=== PATIENT | female | born 1950 | race Caucasian/White ===

== ENCOUNTER → 2019-05-19 14:32 | Outpatient (BNVA) | payer MEDICARE, MEDICAID, SELFPAY | PROVIDERS: Family Provider Internal Medicine; PCP Internal Medicine; Visit Provider Podiatrist Foot & Ankle Surgery | DX: S92.911A Unspecified fracture of right toe(s), initial encounter for closed fracture (principal); X58.XXXA Exposure to other specified factors, initial encounter | CPT/HCPCS: 73630 ==

== ENCOUNTER → 2019-06-30 13:48 | Outpatient (BNVA) | payer MEDICARE, MEDICAID, SELFPAY | PROVIDERS: Family Provider Internal Medicine; PCP Internal Medicine; Visit Provider Podiatrist Foot & Ankle Surgery | DX: M25.571 Pain in right ankle and joints of right foot (principal) | CPT/HCPCS: 73610 ==

== ENCOUNTER 2019-06-30 16:13 | Outpatient (CLI) | payer MEDICARE, MEDICAID, SELFPAY | END 2019-06-30 16:14 | disposition home or self-care (01) | LOC: SPT 16:14 | PROVIDERS: Family Provider Internal Medicine; PCP Internal Medicine; Visit Provider Podiatrist Foot & Ankle Surgery | DX: M25.571 Pain in right ankle and joints of right foot (principal) | CPT/HCPCS: 73610; L1902 ==

== ENCOUNTER 2020-06-18 14:56 | Emergency (ER) | payer MEDICARE, MEDICAID, SELFPAY ==
[2020-06-18 15:08] VITALS: BP 122/73; PULSE 82; RESP 18; TEMP 36.4; O2SAT 94; BMI 29.9
--- NOTE | 2020-06-18 15:47 | XRR_ITS ---
PROCEDURE INFORMATION: Exam: XR Left Knee Exam date and time: 06/18/2020 4:14 PM Age: 70 years old Clinical indication: Injury or trauma; Fall; Blunt trauma; Knee; Left TECHNIQUE: Imaging protocol: XR Left knee. Views: 3 views. COMPARISON: No relevant prior studies available. FINDINGS: Bones/joints: Unremarkable. No fractures. Normal joint alignment. Fairly minimal medial compartment joint space loss. No significant osteophytes. No aggressive bone lesion. Soft tissues: Normal. XR/XR knee LT 3V* [id number] IMPRESSION: No acute findings.
--- NOTE | 2020-06-18 15:47 | XRR_ITS ---
PROCEDURE INFORMATION: Exam: XR Left Hip with Pelvis when Performed Exam date and time: 06/18/2020 4:14 PM Age: 70 years old Clinical indication: Injury or trauma; Fall; Blunt trauma (contusions or hematomas); Left; Hip TECHNIQUE: Imaging protocol: XR Left hip with pelvis when performed. Views: 2 or 3 views. COMPARISON: No relevant prior studies available. FINDINGS: Bones/joints: No fractures. Unremarkable joint alignment. Moderate joint space loss. Mild osteophytic spurring at the lateral margin of the acetabulum. No focal aggressive bone lesion. Soft tissues: Unremarkable. XR/XR hip LT 2-3V wo/w pel* [id number] IMPRESSION: Negative for acute left hip fracture.
[2020-06-18 15:54] VITALS: BP 108/58; PULSE 88; RESP 18; O2SAT 97
--- NOTE | 2020-06-18 15:58 | W.ED.FALL ---
HPI - Fall General: Chief Complaint: Fall Stated Complaint: FALL/ KNEE PAIN Time Seen by Provider: 06/18/20 15:39 Source: patient History of Present Illness: HPI Narrative: Patient slipped on the ice about 4 hours ago. Injured left knee. Initially was able to bear weight on it but now is no longer able to bear weight because of pain. Has pain that radiates up into the left hip. Onset (ago): hour(s) (4) Associated symptoms-after fall: Denies abdominal pain, chest pain, headache(s) or neck pain Review of Systems General: Reports: 10 or more systems reviewed and unremarkable except in HPI and below Const: Denies: fever(s) Eyes: Denies: change in vision ENMT: Denies: throat pain Card: Denies: chest pain Resp: Denies: dyspnea GI: Denies: abdominal pain, nausea or vomiting : Denies: flank pain Musc: Reports: joint pain (Left knee and left hip pain); Denies: neck pain or back pain Neuro: Denies: headache(s) PFSH ED PFSH: Medical History (Updated 06/18/20 @ 16:39 by Fabian Rodgers MD) Asthma Carotid stenosis Chronic kidney disease (CKD) DVT (deep venous thrombosis) Essential (primary) hypertension GERD (gastroesophageal reflux disease) History of placement of stent in LAD coronary artery Plantar fasciitis Family History Other Dementia Hypertension Denies family history of Diabetes CAD (coronary artery disease) Clotting disorder Hyperlipidemia Psychiatric illness Chronic kidney disease (CKD) Suicide Anesthesia complication Bleeding disorder Family history of premature coronary artery disease Lung disease Cancer Stroke Social History Smoking and tobacco status: never smoked Alcohol intake: current Alcohol intake frequency: holidays/special occasions only Marital status: Single Current occupational status: retired Physical Exam Const: COMMON NORMALS: no acute distress, average body habitus, patient oriented x3, no limitations, healthy appearing, alert and well nourished HENMT: COMMON NORMALS: normocephalic, atraumatic, hearing grossly normal bilaterally, external ears normal, EAC's normal, TM's normal bilaterally, Normal external nose present, Normal nasal mucous membranes and turbinates present, moist oral mucous membranes, oropharynx normal, dentition normal and gingiva normal HEAD & SCALP: normocephalic and atraumatic NOSE: Normal external nose present and Normal nasal mucous membranes and turbinates present EXTERNAL EAR: Yes external ears normal EXTERNAL AUDITORY CANAL: EAC's normal TYMPANIC MEMBRANE: TM's normal bilaterally Eye: COMMON NORMALS: Equal, round and reactive pupils present, EOMs intact bilaterally, conjunctivae normal, no scleral icterus, no papilledema, normal visual jain by confrontation and fundi normal bilaterally CONJUNCTIVA: Yes conjunctivae normal PUPIL: Yes Equal, round and reactive pupils present DIRECT OPHTHALMOSCOPY: Yes no papilledema and Yes fundi normal bilaterally Neck/C-Spine: COMMON NORMALS: full ROM, no lymphadenopathy, supple, no meningeal signs, Thyroid normal and No carotid bruits THYROID: Thyroid normal Resp: COMMON NORMALS: normal respiratory effort, No retractions, No use of accessory muscles, clear to auscultation bilaterally and percussion normal AUSCULTATION: clear to auscultation bilaterally PERCUSSION: percussion normal Extremity: NARRATIVE EXTREMITY EXAM: Patient with tenderness to the left hip and left knee. Neurovascular intact distally with +2 dorsalis pedis pulses and normal sensation. LEFT LOWER EXTREMITY: Yes hip joint (Tenderness to the left hip. No ecchymosis. No deformity.) and Yes knee joint (Tenderness to the left knee. No ecchymosis. Mild soft tissue swelling.) Neuro: COMMON NORMALS: patient oriented x3 SENSORIUM/ORIENTATION: Yes alert MENINGEAL SIGNS: Yes no meningeal signs Course Vital Signs: Vital signs: Vital Signs Temperature 97.6 F 06/18/20 15:08 Pulse Rate 88 06/18/20 15:54 Respiratory Rate 18 06/18/20 15:54 Blood Pressure 108/58 06/18/20 15:54 Pulse Oximetry 97 06/18/20 15:54 MDM - Fall MDM Narrative: Medical decision making narrative: Patient has normal x-rays of the left knee and left hip. Will have PT evaluate for DME. Will need immobilizer and crutches. Pain medicine. May need MRI later if symptoms do not improve. Discharge Plan Discharge Patient Disposition: Home Clinical Impression: Knee sprain Qualifiers: Encounter type: initial encounter Involved ligament of knee: unspecified ligament Laterality: left Qualified Code(s): S83.92XA - Sprain of unspecified site of left knee, initial encounter Condition: Stable Prescriptions: New hydrocodone-acetaminophen 5-325 mg tablet 1 tab PO Q6H Qty: 20 RF: 0 No Action aspirin [Adult Aspirin Regimen] 81 mg tablet,delayed release (DR/EC) 81 mg PO DAILY@0800 RF: 0 nitroglycerin [Nitrostat] 0.4 mg tablet, sublingual 0.4 mg SUBLINGUAL Q5M PRN (Reason: CHEST PAINS) RF: 0 pantoprazole 40 mg tablet,delayed release (DR/EC) 40 mg PO BID@0800,1999 RF: 0 lisinopril 10 mg tablet 10 mg PO DAILY@1999 RF: 0 budesonide-formoterol [Symbicort] 160-4.5 mcg/actuation HFA aerosol inhaler 2 puff INHALATION BID@08,1999 RF: 0 fluticasone propionate [Flonase Allergy Relief] 50 mcg/actuation spray,suspension 1 spray INTRANASAL DAILY@0800 RF: 0 simvastatin 80 mg tablet 40 mg PO DAILY@0800 RF: 0 (DME) supinator Qty: 1 RF: 0 albuterol sulfate 90 mcg/actuation HFA aerosol inhaler 1 puff INHALATION QID PRN (Reason: SHORTNESS OF BREATH/WHEEZING) RF: 0 Discharge Orders: Discharge ED (Routine); Ordered 06/18/20 Ordered By: aFbian Rodgers Referrals: William Marie DO [Primary Care Provider] - Discharge Diet: Advance as tolerated Discharge Activity: Use walker/crutches as instructed and As per PT/OT instructions Patient Instructions: Opioid Safety Coding Level of Care Code ED Agricultural Equipment Design Engineer for Chg Fwd Exam Detailed
[2020-06-18] MEDS: HYDROcodone-acetaminophen 7.5-325 mg Tablet 1 TAB PO (16:39)
--- NOTE | 2020-06-18 16:40 | W.ED.FALL ---
HPI - Fall General: Chief Complaint: Fall Stated Complaint: FALL/ KNEE PAIN Time Seen by Provider: 06/18/20 15:39 Source: patient History of Present Illness: HPI Narrative: patient fell injuring left knee MD complaint: fall Onset (ago): unknown Fall from: standing Associated symptoms-after fall: Denies abdominal pain, chest pain or headache(s) Review of Systems Const: Denies: fever(s) Eyes: Denies: change in vision ENMT: Denies: throat pain Card: Denies: chest pain Resp: Denies: dyspnea GI: Denies: abdominal pain : Denies: flank pain Musc: Reports: extremity pain and joint pain (left knee pain) Skin/Breast: Denies: skin swelling Neuro: Denies: headache(s) PFSH ED PFSH: Medical History Asthma Carotid stenosis Chronic kidney disease (CKD) DVT (deep venous thrombosis) Essential (primary) hypertension GERD (gastroesophageal reflux disease) History of placement of stent in LAD coronary artery Plantar fasciitis Family History Other Dementia Hypertension Denies family history of Diabetes CAD (coronary artery disease) Clotting disorder Hyperlipidemia Psychiatric illness Chronic kidney disease (CKD) Suicide Anesthesia complication Bleeding disorder Family history of premature coronary artery disease Lung disease Cancer Stroke Social History Smoking and tobacco status: never smoked Alcohol intake: current Alcohol intake frequency: holidays/special occasions only Marital status: Single Current occupational status: retired Physical Exam Const: COMMON NORMALS: no acute distress, average body habitus, patient oriented x3, no limitations, healthy appearing, alert and well nourished HENMT: COMMON NORMALS: normocephalic, atraumatic, hearing grossly normal bilaterally, external ears normal, EAC's normal, TM's normal bilaterally, Normal external nose present, Normal nasal mucous membranes and turbinates present, moist oral mucous membranes, oropharynx normal, dentition normal and gingiva normal HEAD & SCALP: normocephalic and atraumatic NOSE: Normal external nose present and Normal nasal mucous membranes and turbinates present EXTERNAL EAR: Yes external ears normal EXTERNAL AUDITORY CANAL: EAC's normal TYMPANIC MEMBRANE: TM's normal bilaterally Neck/C-Spine: COMMON NORMALS: no JVD Chest: COMMONS NORMALS: normal inspection of the chest, normal palpation of entire chest wall and normal palpation of the breasts BREAST/AXILLA PALPATION: Yes normal palpation of the breasts Resp: COMMON NORMALS: normal respiratory effort, No retractions, No use of accessory muscles, clear to auscultation bilaterally and percussion normal AUSCULTATION: clear to auscultation bilaterally PERCUSSION: percussion normal Cardio: COMMON NORMALS: no JVD, regular rate, regular rhythm, S1 normal heart sound present, S2 normal heart sound present, No gallops present (Cardio), No clicks present (Cardio), No murmurs present (Cardio), No rub (Cardio) and Peripheral pulses 2+ throughout RATE: regular rate RHYTHM: regular rhythm HEART SOUNDS: S1 normal heart sound present and S2 normal heart sound present PERIPHERAL PULSES: Peripheral pulses 2+ throughout Extremity: GENERAL: Yes normal exam except as noted LEFT LOWER EXTREMITY: Yes knee joint (tenderness along left lateral joint line., NVI distal) Neuro: COMMON NORMALS: patient oriented x3 SENSORIUM/ORIENTATION: Yes alert Course Vital Signs: Vital signs: Vital Signs Temperature 97.6 F 06/18/20 15:08 Pulse Rate 81 06/18/20 18:04 Respiratory Rate 18 06/18/20 18:04 Blood Pressure 100/78 06/18/20 18:04 Pulse Oximetry 96 06/18/20 18:04 MDM - Fall MDM Narrative: Medical decision making narrative: xray negative for acute fracture, recommend RICE therapy and furtherimagaing by PCP if symptoms dont improve. Discharge Plan Discharge Patient Disposition: Home Clinical Impression: Knee sprain Condition: Stable Prescriptions: New hydrocodone-acetaminophen 5-325 mg tablet 1 tab PO Q6H Qty: 20 RF: 0 No Action aspirin [Adult Aspirin Regimen] 81 mg tablet,delayed release (DR/EC) 81 mg PO DAILY@799 RF: 0 pantoprazole 40 mg tablet,delayed release (DR/EC) 40 mg PO BID@ RF: 0 lisinopril 10 mg tablet 10 mg PO DAILY@1999 RF: 0 budesonide-formoterol [Symbicort] 160-4.5 mcg/actuation HFA aerosol inhaler 2 puff INHALATION BID@ RF: 0 fluticasone propionate [Flonase Allergy Relief] 50 mcg/actuation spray,suspension 1 spray INTRANASAL DAILY@0800 RF: 0 simvastatin 80 mg tablet 40 mg PO DAILY@0800 RF: 0 (DME) supinator Qty: 1 RF: 0 (DME) Crutches See Rx Instructions .Route .MEDSUPPLY Qty: 1 RF: 0 nitroglycerin [Nitrostat] 0.4 mg tablet, sublingual 0.4 mg SUBLINGUAL Q5M PRN (Reason: CHEST PAINS) Qty: 25 RF: 3 albuterol sulfate 90 mcg/actuation HFA aerosol inhaler 1 puff INHALATION QID PRN (Reason: SHORTNESS OF BREATH/WHEEZING) RF: 0 Discharge Orders: Discharge ED (Routine); Ordered 06/18/20 Ordered By: Fabian Rodgers Referrals: William Marie DO [Primary Care Provider] - Discharge Diet: Advance as tolerated Discharge Activity: Use walker/crutches as instructed and As per PT/OT instructions Patient Instructions: Opioid Safety Coding Level of Care Code ED Freelance Graphic Designer for Concetta Ashton
[2020-06-18 16:54] VITALS: BP 100/78; PULSE 81; RESP 18; O2SAT 96
[2020-06-18] MEDS: cyclobenzaprine 10 mg Tablet PO (17:22)
[2020-06-18 18:04] VITALS: BP 100/78; PULSE 81; RESP 18; O2SAT 96
== END 2020-06-18 18:05 | disposition home or self-care (01) ==
PROVIDERS: Emergency Provider Emergency Medicine; PCP Internal Medicine
DX: S83.92XA Sprain of unspecified site of left knee, initial encounter (principal); Z79.82 Long term (current) use of aspirin; I10 Essential (primary) hypertension; W00.0XXA Fall on same level due to ice and snow, initial encounter
CPT/HCPCS: 29530; 73502; 73562; 97161; 99283

== ENCOUNTER 2020-07-09 07:48 | Outpatient (CLI) | payer MEDICARE, MEDICAID, SELFPAY ==
--- NOTE | 2020-07-09 07:56 | MR_ITS ---
WS: [id number] MRI LEFT KNEE NONCONTRAST TECHNIQUE: Axial PD, coronal PD fat sat, coronal PD, sagittal PD, and sagittal PD fat-sat images obta ined. CLINICAL INFORMATION: LEFT KNEE INTERNAL DERANGEMENT COMPARISON: None. FINDINGS: Distal quadriceps and patella tendons are intact. Hypertrophic patella. Normal ACL and PCL. Small sup rapatellar effusion. Chronic intrasubstance signal abnormality involving the medial and lateral menis cus. No acute appearing meniscal tears. Osteochondral fracture involving the posterior lateral tibial plateau with diffuse edema. Visualized fracture line involving the tibial plateau laterally with sli ght depression measuring 1.4 mm. Moderate chondromalacia involving the medial and lateral joint gabrielle rtments. Mild chondromalacia patella. No subchondral edema. Tiny popliteal cyst. Popliteal cyst measures 6 x 1 5 x 19mm. Otherwise normal popliteal fossa. Normal medial and lateral collateral ligaments. MR/MR knee LT wo con* [id number] IMPRESSION: 1. Normal anterior and posterior cruciate ligaments. 2. Osteochondral fracture involving the posterior lateral tibial plateau with diffuse edema. Mild depression lateral tibial plateau measuring 1.5 mm. 3. Moderate chondromalacia involving the medial and lateral joint compartments . No acute appearing meniscal tears. 4. Small popliteal cyst measuring 6.5 x 15.9 x 19.9 mm. 5. Mild chondromalacia patella. Small suprapatellar effusion.
== END 2020-07-09 07:49 | disposition home or self-care (01) ==
LOC: RADWPI 07:50
PROVIDERS: PCP Internal Medicine; Visit Provider Internal Medicine
DX: M23.92 Unspecified internal derangement of left knee (principal); M22.42 Chondromalacia patellae, left knee; M25.462 Effusion, left knee; M71.22 Synovial cyst of popliteal space [Baker], left knee; S82.142A Displaced bicondylar fracture of left tibia, initial encounter for closed fracture; X58.XXXA Exposure to other specified factors, initial encounter; R60.0 Localized edema
CPT/HCPCS: 73721

== ENCOUNTER → 2020-08-31 08:21 | Outpatient (BNVA) | payer MEDICARE, MEDICAID, SELFPAY | PROVIDERS: PCP Internal Medicine; Visit Provider Orthopaedic Surgery | DX: S82.142A Displaced bicondylar fracture of left tibia, initial encounter for closed fracture (principal); X58.XXXA Exposure to other specified factors, initial encounter | CPT/HCPCS: 73562 ==

== ENCOUNTER 2021-02-18 12:24 | Outpatient (CLI) | payer MEDICARE, MEDICAID, SELFPAY ==
--- NOTE | 2021-02-18 12:41 | MM_ITS ---
WS: [id number] SCREENING DIGITAL MAMMOGRAM WITH CAD HISTORY: SCREENING COMPARISON: 07/19/2018 and 12/08/2015 Bilateral CC and MLO views submitted. Computer aided detection analyzed. Breast composition: There are scattered areas of fibroglandular density. No suspicious masses, microc alcifications or architectural distortion. MM/[place] [id number] IMPRESSION: BI-RADS: 2-Benign FOLLOW UP: 1 Year Follow-up
== END 2021-02-18 12:25 | disposition home or self-care (01) ==
LOC: RADSHAW 12:27
PROVIDERS: PCP Internal Medicine; Visit Provider Internal Medicine
DX: Z12.31 Encounter for screening mammogram for malignant neoplasm of breast (principal)
CPT/HCPCS: 77067

== ENCOUNTER 2021-03-02 07:04 | Outpatient (CLI) | payer MEDICARE, MEDICAID, SELFPAY ==
[2021-03-02 08:28] VITALS: BMI 29.9
--- NOTE | 2021-03-02 08:28 | NMCV_ITS ---
NM arun perf SPECT r/s* [id number] Denise Sanches Age: 70 Gender: F : 1950 Exam Date: 03/02/2021 08:24 Ordering Phys: Rasta Akins M.D ([email or web address]) Technologist: AKHIL Niño Exam Location: [facility] Indications: CHEST PAIN STRESS TEST Please see separate stress test report in [facility] for full findings IMAGE PROTOCOL Rest/Stress 1 Lexiscan Day Radiopharmaceutical Dose (mCi) Administration Site Administered by Rest: Tc-99m 10.9 IV AKHIL Macedo Sestamibi Stress:Tc-99m 32.6 IV AKHIL Macedo Sestamibi Rest: 02-Mar-2021 60 Discovery 630 Stress: 02-Mar-2021 30 Discovery 630 0.4mg Lexiscan. Images obtained in supine and prone position. SPECT RESULTS Technical Quality: Excellent Raw Data Analysis: Normal Image Corrections: No attenuation or motion correction applied Summed Stress Score: 1 Summed Rest Score: 4 Summed Difference Score: 0 PERFUSION FINDINGS There is homogenous radiotracer uptake throughout the myocardium FUNCTIONAL RESULTS (calculated via Gated SPECT) Stress Image LV EF (%): 87 Stress EDV (mL):68 TID: 0.93 Stress ESV (mL):9 FUNCTIONAL FINDINGS: There is normal left ventricular systolic function. IMPRESSIONS 1. Normal myocardial perfusion imaging with no evidence of ischemia 2. LV systolic function is normal Rasta Akins MD (Electronically Signed) Final Date: 02 March 2021 11:13 S
--- NOTE | 2021-03-02 08:28 | ECG_ITS ---
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 Interpretive Statements NAME OF STUDY: LEXISCAN SESTAMIBI STRESS TEST INDICATION: [Chest Pain, ] Procedure: At the baseline, the blood pressure was 147/74 mmHg with a heart rate of 68 bpm. The electrocardiogram showed normal sinus rhythm, normal axis with normal ST and T's. The Lexiscan was infused over a period of 20 seconds. A total of 0.4 mg of Lexiscan was infused. The stress phase was continued for a total of 5 minutes. Heart rate was at the end of stress phase was 74 bpm and a blood pressure of 161/72 mmHg. The EKG at the peak infusion revealed since normal sinus rhythm with no significant ST-T wave changes. Sestamibi was injected 20 seconds after the Lexiscan infusion. Blood pressure at the end of recovery phase was 157/73 mmHg with a heart rate of 71 bpm. Conclusion: 1. Normal EKG response to Lexiscan infusion 2. No Lexiscan induced chest pain or cardiac arrhythmia. 3. Normal blood pressure and heart rate response. 4. Sestamibi/sestamibi perfusion scan pending; see separate report. Electronically Signed On 03-14-2021 10:54:35 INSTRUCTION LIBRARIAN by Rasta Akins M.D. [email or web address]/store/[id number]
[2021-03-02] MEDS: regadenoson 0.4 Mg/5 ml Syringe IVP (09:15)
[2021-03-02 09:16] VITALS: BP 157/73; PULSE 68
== END 2021-03-02 07:05 | disposition home or self-care (01) ==
LOC: CDL 07:06
PROVIDERS: PCP Internal Medicine; Visit Provider Internal Medicine
DX: R07.9 Chest pain, unspecified (principal)
CPT/HCPCS: 78452; 93017; A9500; J2785

== ENCOUNTER → 2021-12-13 14:46 | Outpatient (BNVA) | payer MEDICARE, MEDICAID, SELFPAY | PROVIDERS: PCP Internal Medicine; Visit Provider Internal Medicine | DX: I12.9 Hypertensive chronic kidney disease with stage 1 through stage 4 chronic kidney disease, or unspecified chronic kidney disease (principal); N18.9 Chronic kidney disease, unspecified; Z98.890 Other specified postprocedural states; Z87.19 Personal history of other diseases of the digestive system; I65.29 Occlusion and stenosis of unspecified carotid artery; I25.10 Atherosclerotic heart disease of native coronary artery without angina pectoris | CPT/HCPCS: 99214 ==

== ENCOUNTER 2022-02-21 09:27 | Outpatient (CLI) | payer MEDICARE, MEDICAID, SELFPAY ==
--- NOTE | 2022-02-21 10:00 | USCV_ITS ---
Denise Sanches Age: 71 Gender: F : 1950 Exam Date: 02/21/2022 10:11 Ordering Phys: Rasta Akins M.D ([email or web address]) Technologist: CT Exam Location: [facility] Indication: stenosis Risk Factors: Previous Vascular Surgery: Right Brachial BP: / Left Brachial BP: / Right Left Velocity (cm/s) Spectral Plaque Velocity (cm/s) Spectral Plaque Syst/Diast Broadening Syst/Diast Broadening 69.40/ 19.70 Prox CCA 68.20 / 17.30 75.00/ 18.80 Mid CCA 84.60 / 26.40 57.20/ 18.80 Distal CCA 92.50 / 18.50 105.80/30.90 Prox ICA 95.90 / 22.20 72.80/ 21.40 Mid ICA 97.10 / 24.90 100.00/31.00 Distal ICA 111.30/ 32.00 56.20 ECA 12.50 1.43 ICA/CCA 1.20 Antegrade Vertebral Antegrade 60.53/ 8.20 cm/s 104.1/ 20.20 cm/s 0 Tri Subclavian Tri 105.6 78.30 0 CONCLUSIONS Right ICA stenosis <50%. Mild atheromatous plaque right carotid bulb/ICA. Left ICA stenosis <50%. Moderate calcified atheromatous plaque left carotid bulb/ICA. Normal antegrade Doppler flow noted in the right vertebral artery. Normal antegrade Doppler flow noted in the left vertebral artery. Raj Dyson MD (Electronically Signed) Final Date: 21 February 2022 11:49 S
== END 2022-02-21 09:28 | disposition home or self-care (01) ==
LOC: RAD 09:31
PROVIDERS: PCP Internal Medicine; Visit Provider Internal Medicine
DX: I65.23 Occlusion and stenosis of bilateral carotid arteries (principal)
CPT/HCPCS: 93880

== ENCOUNTER 2022-05-23 12:51 | Emergency (ER) | payer MEDICARE, MEDICAID, SELFPAY ==
[2022-05-23] VITALS (7 sets, daily range): BP systolic 103–138; BP diastolic 62–71; PULSE 72–91; RESP 18–25; TEMP 36.8; O2SAT 92–95; BMI 26.6
--- NOTE | 2022-05-23 13:15 | ECG_ITS ---
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 Measurements Intervals [place] Rate: 91 P: 63 CT: 155 QRS: -54 QRSD: 81 T: 68 QT: 345 QTc: 425 Interpretive Statements SINUS RHYTHM PATTERN CONSISTENT WITH PULMONARY DISEASE LEFT ANTERIOR FASCICULAR BLOCK [QRS AXIS <= -45, QR IN I, RS IN II] Compared to ECG 03/09/2019 15:43:12 Sinus bradycardia no longer present Electronically Signed On 05-23-2022 14:43:46 LEATHER SORTER by Rasta Akins M.D. [email or web address]/store/[id number]
--- NOTE | 2022-05-23 13:22 | XR_ITS ---
WS: [id number] Portable AP upright chest, 05/23/2022 Clinical Data: cough, sob Comparison: Portable chest, 03/09/2019. Findings: No nodules, masses or effusions are seen. There is a minimal patchy left lower lobe opacity which could represent atelectasis and/or pneumonia. The heart is normal. The pulmonary vascularity i s not increased. No pneumothorax is seen. The aortic arch and descending thoracic aorta show tortuosi ty. XR/XR chest 1V portable [id number] Impression: 1. Minimal patchy left lower lobe opacity which could represent atelectasis and /or pneumonia. 2. Atherosclerosis.
--- NOTE | 2022-05-23 13:22 | ED_ITS ---
HPI - URI/Sore Throat General: Chief Complaint: Shortness of Breath/Dyspnea Stated Complaint: flu like symptoms Time Seen by Provider: 05/23/22 13:10 Source: patient Mode of arrival: wheelchair Limitations: no limitations History of Present Illness: Patient is a 72-year-old female here for concerns of shortness of breath and difficulty breathing as well as weakness. Patient tells me that she has been sick since New Year's (approximately 2 weeks). She states this started as a upper respiratory-like illness but states her cough and shortness of breath has seemed to worsen. She is complaining of a dry irritative cough. Patient checked into the ED along with her sister whom she resides with. Sister is fairly ill with upper respiratory/respiratory illness. States she initially had fevers for the first 3 days of her illness but has been afebrile since. She has had mild diarrhea. MD elicited complaint: fever, cough and other (weakness, dyspnea) Pertinent past history: asthma Onset (ago): day(s) Consistency: constant Severity: moderate Description of mucous: clear Able to tolerate fluids by mouth: Yes Relieving factors: nothing Context: sick contacts (sister) Associated symptoms: Reports chest pain (from coughing), diarrhea and fever(s) (first three days of illness; none since); Deny abdominal pain, headache(s), nasal congestion, nausea or vomiting Treatments prior to arrival: none Review of Systems Const: Reports: fever(s) (first three days of illness; none since), fatigue and malaise ENMT: Denies: throat pain, odynophagia, nasal discharge or nasal congestion Card: Reports: chest pain (from coughing); Denies: palpitations, irregular heart rhythm, edema, swelling of feet/ankles, lightheadedness, syncope, pre-syncope, dyspnea on exertion or orthopnea Resp: Reports: dyspnea, non-productive cough and chest congestion; Denies: wheezing, stridor or hemoptysis GI: Reports: diarrhea; Denies: abdominal pain, nausea or vomiting : Denies: flank pain or dysuria Musc: Denies: neck pain, back pain, extremity pain or joint pain Skin/Breast: Denies: rash Neuro: Reports: other (generalized weakness); Denies: headache(s), numbness in extremities, weakness in extremities or sensory changes PFSH ED PFSH: Medical History Asthma Carotid stenosis Chronic kidney disease (CKD) DVT (deep venous thrombosis) Essential (primary) hypertension GERD (gastroesophageal reflux disease) History of placement of stent in LAD coronary artery Plantar fasciitis Family History Other Dementia Hypertension Denies family history of Diabetes CAD (coronary artery disease) Clotting disorder Hyperlipidemia Psychiatric illness Chronic kidney disease (CKD) Suicide Anesthesia complication Bleeding disorder Family history of premature coronary artery disease Lung disease Cancer Stroke Social History Smoking and tobacco status: never smoked Alcohol intake: current Alcohol intake frequency: holidays/special occasions only Marital status: Single Current occupational status: retired Physical Exam Const: COMMON NORMALS: average body habitus, patient oriented x3, no limitations, alert and well nourished GENERAL APPEARANCE: cooperative and ill appearing (non-toxic ) ORIENTATION/CONSCIOUSNESS: Yes awake, Yes oriented to person, Yes oriented to place and Yes oriented to time HENMT: COMMON NORMALS: normocephalic and atraumatic HEAD & SCALP: normal to inspection, normocephalic and atraumatic FACE & SINUS: normal facial exam Eye: GENERAL EYE: appearance normal, both eyes and all related structures Neck/C-Spine: COMMON NORMALS: full ROM and no lymphadenopathy Chest: COMMONS NORMALS: normal inspection of the chest and normal palpation of entire chest wall Resp: COMMON NORMALS: normal respiratory effort EFFORT & INSPECTION: Yes tachypneic, Yes labored, No grunting, No stridor, Yes Actively coughing and No retractions AUSCULTATION: rhonchi throughout Cardio: COMMON NORMALS: regular rate and regular rhythm RATE: regular rate RHYTHM: regular rhythm Extremity: COMMON NORMALS: no pedal edema GENERAL: Yes normal exam except as noted Neuro: CALEB COMA SCALE: document GCS findings Caleb coma scale eye opening: Spontaneous [place] coma scale verbal response: Orientated Caleb coma scale motor response: Obey commands [place] coma scale total score: 15 COMMON NORMALS: patient oriented x3, CN's II-XII intact bilaterally, moves all extremities, no focal motor deficits and no sensory deficits noted SENSORIUM/ORIENTATION: Yes alert, Yes oriented to person, Yes oriented to place and Yes oriented to time Skin: COMMON NORMALS: no rashes or lesions noted GENERAL SKIN EXAM: no rashes or lesions noted Course Vital Signs: Vital signs: Vital Signs Temperature 98.2 F 05/23/22 12:59 Pulse Rate 88 05/23/22 15:05 Respiratory Rate 23 H 05/23/22 15:05 Blood Pressure 134/66 05/23/22 15:05 Pulse Oximetry 94 05/23/22 15:05 Oxygen Delivery Me thod 05/23/22 15:05 MDM - URI/Sore Throat Medical Decision Making Patient feeling better after breathing treatment and IV Solu-Medrol. Lung sounds have improved. Vital signs upon arrival were stable apart from some mild tachypnea. This has improved during my re-assessment. CXR showing left lower pneumonia. She is not tachycardic or febrile. She has a normal white count. Normal procal. Labs showing minor elevations in her BUN/Cr. CR is 1.4. She was 1.3 approximately 4 years ago. She does have known chronic kidney disease. Minor elevations to LFTs. Non-specific lab abnormalities can be seen with COVID- 19. Respiratory panel pending. She will be called with these results. She was given IV Levaquin here and will be placed on oral antibiotics as well as steroids. She is requesting refill of her albuterol inhaler. Strict return ED precautions given. Lab Data 05/23/22 13:45 05/23/22 13:45 Radiology Impressions Chest X-Ray 05/23/22 13:22 Impression: 1. Minimal patchy left lower lobe opacity which could represent atelectasis and/or pneumonia. 2. Atherosclerosis. Laboratory Results WBC 8.2 10^3/uL (4.0-10.0) 05/23/22 13:45 RBC 3.77 10^6/uL (4.1-5.3) L 05/23/22 13:45 Hgb 10.7 g/dL (11.5-15.3) L 05/23/22 13:45 Hct 34.3 % (37.0-47.0) L 05/23/22 13:45 MCV 91.0 fl (81-99) 05/23/22 13:45 MCH 28.4 pg (28.0-34.0) 05/23/22 13:45 MCHC 31.2 g/dL (30.0-36.0) 05/23/22 13:45 RDW 15.6 % (12.1-15.1) H 05/23/22 13:45 Plt Count 523 10^3/cmm (130-400) H 05/23/22 13:45 MPV 12.2 fL (7.4-10.4) H 05/23/22 13:45 Neut % (Auto) 71.1 % 05/23/22 13:45 Lymph % (Auto) 19.0 % 05/23/22 13:45 [place] % (Auto) 6.9 % 05/23/22 13:45 Eos % (Auto) 0.4 % 05/23/22 13:45 Baso % (Auto) 0.9 % 05/23/22 13:45 Neut # (Auto) 5.81 10^3/uL (1.8-7.7) 05/23/22 13:45 Lymph # (Auto) 1.6 10^3/uL (0.8-4.8) 05/23/22 13:45 [place] # (Auto) 0.6 10^3/uL (0.2-0.9) 05/23/22 13:45 Eos # (Auto) 0.0 10^3/uL (0.0-0.8) 05/23/22 13:45 Baso # (Auto) 0.1 10^3/uL (0.0-0.1) 05/23/22 13:45 Nucleated RBC % (auto) 0 % 05/23/22 13:45 Nucleated RBCs # 0.0 /100WBC 05/23/22 13:45 Sodium 134 mmol/L (136-145) L 05/23/22 13:45 Potassium 3.7 mmol/L (3.5-5.1) 05/23/22 13:45 Chloride 94 mmol/L (98-107) L 05/23/22 13:45 Carbon Dioxide 21 mmol/L (22-29) L 05/23/22 13:45 Anion Gap 22.7 (5-19) H 05/23/22 13:45 BUN 41 mg/dL (8-23) H 05/23/22 13:45 Creatinine 1.4 mg/dL (0.5-0.9) H 05/23/22 13:45 GFR Calculation Not Reportable 05/23/22 13:45 Glucose 106 mg/dL (65-115) 05/23/22 13:45 Calculated Osmolality 289 mOsm/kg (285-295) 05/23/22 13:45 Calcium 9.2 mg/dL (8.5-10.5) 05/23/22 13:45 Total Bilirubin 0.7 mg/dL (0.15-1.2) 05/23/22 13:45 AST 52 U/L (0-32) H 05/23/22 13:45 ALT 46 U/L (0-33) H 05/23/22 13:45 Alkaline Phosphatase 107 U/L (35-105) H 05/23/22 13:45 Total Protein 8.5 g/dL (6.6-8.7) 05/23/22 13:45 Albumin 3.5 g/dL (3.5-5.2) 05/23/22 13:45 Globulin 5.0 g/dL (1.3-4.6) H 05/23/22 13:45 Procalcitonin 0.09 ng/mL (0-0.5) 05/23/22 13:45 Discharge Plan Discharge Patient Disposition: Home Clinical Impression: Pneumonia Qualifiers: Pneumonia type: due to unspecified organism Laterality: left Lung location: lower lobe of lung Qualified Code(s): J18.9 - Pneumonia, unspecified organism Condition: Stable Prescriptions: New dexamethasone 6 mg tablet 6 mg PO DAILY Qty: 6 0RF levofloxacin 500 mg tablet 500 mg PO DAILY 7 Days Qty: 7 0RF Continued albuterol sulfate 90 mcg/actuation HFA aerosol inhaler 1 puff INHALATION QID PRN (Reason: SHORTNESS OF BREATH/WHEEZING) Qty: 6.7 0RF No Action docusate sodium 100 mg capsule 100 mg PO DAILY loratadine 10 mg tablet 10 mg PO DAILY aspirin [Adult Aspirin Regimen] 81 mg tablet,delayed release (DR/EC) 81 mg PO DAILY@0800 pantoprazole 40 mg tablet,delayed release (DR/EC) 40 mg PO BID@799,1999 budesonide-formoterol [Symbicort] 160-4.5 mcg/actuation HFA aerosol inhaler 2 puff INHALATION BID@799,1999 fluticasone propionate [Flonase Allergy Relief] 50 mcg/actuation spray,suspension 1 spray INTRANASAL DAILY@0800 Rx Instructions: administer into each nostril simvastatin 80 mg tablet 40 mg PO DAILY@0800 lisinopril 30 mg tablet 30 mg PO DAILY Qty: 90 3RF nitroglycerin [Nitrostat] 0.4 mg tablet, sublingual 0.4 mg SUBLINGUAL Q5M PRN (Reason: CHEST PAINS) Qty: 25 3RF Rx Instructions: do not exceed 3 doses per episode Discharge Orders: Discharge ED (Routine); Ordered 05/23/22 Ordered By: Marry Villafana Referrals: William Marie DO [Primary Care Provider] - Activity Restrictions/Additional Instructions: As we discussed you need to begin your antibiotics and steroids immediately. You have been given a refill of your rescue inhaler. As we discussed you need to return to the emergency department immediately for worsening shortness of breath, difficulty breathing, chest pain, fevers, generally feeling worse or unwell, or any other concerns you may have. Hope you begin to feel better soon. Coding Level of Care Code ED Facilities Flight Check Pilot for [place] Fwd Exam Comprehensive
[2022-05-23 14:11] LABS: Basophils # 0.1 10^3/uL (0.0-0.1); Basophils % 0.9 %; Eosinophils % 0.4 %; Hematocrit 34.3 % (37.0-47.0); Hemoglobin 10.7 g/dL (11.5-15.3); Lymphocytes # 1.6 10^3/uL (0.8-4.8); Mean Corpuscular HGB Conc 31.2 g/dL (30.0-36.0); Mean Corpuscular Hemoglobin 28.4 pg (28.0-34.0); Mean Platelet Volume 12.2 fL (7.4-10.4); Monocytes # 0.6 10^3/uL (0.2-0.9); Monocytes % 6.9 %; Neutrophils # 5.81 10^3/uL (1.8-7.7); Neutrophils % 71.1 %; Nucleated Red Blood Cells % 0 %; Platelet Count 523 10^3/cmm (130-400); Red Blood Count 3.77 10^6/uL (4.1-5.3); Red Cell Distribution Width 15.6 % (12.1-15.1); White Blood Count 8.2 10^3/uL (4.0-10.0)
[2022-05-23] MEDS: levofloxacin-dextrose 5 % 500 MG/100 ML PREMIX 100 MG IV (14:18)
[2022-05-23 14:35] LABS: Alanine Aminotransferase 46 U/L (0-33); Albumin Level 3.5 g/dL (3.5-5.2); Alkaline Phosphatase 107 U/L (35-105); Anion Gap 22.7 (5-19); Aspartate Amino Transferase 52 U/L (0-32); Blood Urea Nitrogen 41 mg/dL (8-23); Calcium 9.2 mg/dL (8.5-10.5); Carbon Dioxide 21 mmol/L (22-29); Chloride 94 mmol/L (98-107); Glucose 106 mg/dL (65-115); Osmolality Calculated 289 mOsm/kg (285-295); Potassium 3.7 mmol/L (3.5-5.1); Sodium 134 mmol/L (136-145); Total Bilirubin 0.7 mg/dL (0.15-1.2); Total Protein 8.5 g/dL (6.6-8.7)
[2022-05-23 14:42] LABS: Procalcitonin 0.09 ng/mL (0-0.5)
[2022-05-23] MEDS: ipratropium-albuterol 3 mL Neb INHALATION (14:55)
[2022-05-23 16:06] LABS: Adenovirus Not Detected (NOT DETECT); Chlamydia Pneumoniae Not Detected (NOT DETECT); Coronavirus 229E,HKU1,NL63,OC4 Not Detected (NOT DETECT); Human Metapneumovirus Not Detected (NOT DETECT); Human Rhinovirus/Enterovirus Not Detected (NOT DETECT); Influenza A Not Detected (NOT DETECT); Influenza A H1 Not Detected (NOT DETECT); Influenza A H1-2009 Not Detected (NOT DETECT); Influenza A H3 Not Detected (NOT DETECT); Influenza B Not Detected (NOT DETECT); Mycoplasma Pneumoniae Not Detected (NOT DETECT); Parainfluenza Virus Type 1 Not Detected (NOT DETECT); Parainfluenza Virus Type 2 Not Detected (NOT DETECT); Parainfluenza Virus Type 3 Not Detected (NOT DETECT); Parainfluenza Virus Type 4 Not Detected (NOT DETECT); Respiratory Syncytial Virus A Not Detected (NOT DETECT); Respiratory Syncytial Virus B Not Detected (NOT DETECT); SARS-COV-2 Not Detected (NOT DETECT)
== END 2022-05-23 16:16 | disposition home or self-care (01) ==
PROVIDERS: Emergency Provider Physician Assistant; PCP Internal Medicine
DX: J18.9 Pneumonia, unspecified organism (principal); Z79.82 Long term (current) use of aspirin; I12.9 Hypertensive chronic kidney disease with stage 1 through stage 4 chronic kidney disease, or unspecified chronic kidney disease; N18.9 Chronic kidney disease, unspecified
CPT/HCPCS: 71045; 80053; 84145; 85025; 87486; 87581; 87633; 93005; 94640; 96365; 96375; 99285; J1956; J2930

== ENCOUNTER 2022-06-03 13:38 | Inpatient (IN) | payer MEDICARE, MEDICAID, SELFPAY ==
[2022-06-03] VITALS (36 sets, daily range): BP systolic 76–128; BP diastolic 40–72; PULSE 74–136; RESP 17–44; TEMP 35.9–36.9; O2SAT 63–100; BMI 27.4; BMI 30.1
--- NOTE | 2022-06-03 13:43 | W.ED.AMS ---
HPI - Altered Mental Status General: Chief Complaint: Shortness of Breath/Dyspnea Stated Complaint: SOB Time Seen by Provider: 06/03/22 13:43 Limitations: altered mental status History of Present Illness: Ms. Sanches is a 72-year-old lady with history of CAD, PCI, CKD, hypertension, carotid disease, lung disease presenting to the emergency department secondary to altered mental status with respiratory distress. Patient does not provide clinical history however per EMS report she was diagnosed with pneumonia and given prescription for inhaler, antibiotics, steroids on 05/23. She was vomiting when they arrived and has had decreased level of consciousness which is progressed. Per son upon his arrival patient is typically ambulatory and lives with her sister takes care of her self. She has been ill for a few weeks with respiratory symptoms. Today she was still fatigued but feeling mildly improved and went to the bathroom. When she got out she started vomiting and reported chest pain. Review of Systems General: Reports: ROS unobtainable due to mental status PFSH ED PFSH: Medical History Asthma Carotid stenosis Chronic kidney disease (CKD) DVT (deep venous thrombosis) Essential (primary) hypertension GERD (gastroesophageal reflux disease) History of placement of stent in LAD coronary artery History of placement of stent in LAD coronary artery Plantar fasciitis Surgical History History of heart artery stent Family History Other Dementia Hypertension Denies family history of Diabetes CAD (coronary artery disease) Clotting disorder Hyperlipidemia Psychiatric illness Chronic kidney disease (CKD) Suicide Anesthesia complication Bleeding disorder Family history of premature coronary artery disease Lung disease Cancer Stroke Social History Smoking and tobacco status: never smoked Alcohol intake: current Alcohol intake frequency: holidays/special occasions only Marital status: Single Current occupational status: retired Physical Exam Const: GENERAL APPEARANCE: well developed and ill appearing HENMT: COMMON NORMALS: normocephalic and atraumatic HEAD & SCALP: normocephalic and atraumatic Eye: COMMON NORMALS: Equal, round and reactive pupils present and conjunctivae normal CONJUNCTIVA: Yes conjunctivae normal SCLERA: sclerae normal PUPIL: Yes Equal, round and reactive pupils present Neck/C-Spine: COMMON NORMALS: supple GENERAL: Yes trachea midline Resp: COMMON NORMALS: normal respiratory effort EFFORT & INSPECTION: Yes tachypneic Cardio: COMMON NORMALS: regular rhythm RATE: tachycardic RHYTHM: regular rhythm GI: COMMON NORMALS: Soft to palpation PALPATION: Yes Soft to palpation and No Tenderness to palpation present (GI) Extremity: GENERAL: Yes normal exam except as noted and Yes edema (Mild symmetric bilaterally) Neuro: SENSORIUM/ORIENTATION: Yes Orientation impaired and Yes somnolent OTHER: Responsive to painful stimuli/loud verbal stimuli. Appears to be protecting her airway Course Vital Signs: Vital signs: Vital Signs Temperature 98.3 F 06/06/22 04:00 Pulse Rate 71 06/06/22 12:30 Respiratory Rate 16 06/06/22 13:00 Blood Pressure 129/70 06/06/22 13:00 Pulse Oximetry 99 06/06/22 13:00 Oxygen Delivery Me thod 06/06/22 13:00 Oxygen Flow Rate 1 06/04/22 08:09 MDM - Altered Mental Status Medical Decision Making 72-year-old lady presenting with respiratory distress and generalized illness. Patient initially ill on appearance with decreased mentation and limited clinical history. No focality identified on neuro exam. BiPAP ordered EKG notable for sinus tachycardia, normal intervals, left axis deviation, no STEMI. Similar upon repeat Labs notable for no leukocytosis, normal hemoglobin and platelet count. Metabolic panel with mild evidence of metabolic stress with elevated lactic acid. Negative range 2-hour delta troponin. ABG is compensated. Chest x-ray with left rib and right basilar infiltrates or atelectasis. Given severity of illness patient require CT imaging to further delineate causes and evaluate for life-threatening conditions. CT head negative for acute intracranial process. CT imaging with bilateral PEs, no right heart strain, enterocolitis also likely. Incidental findings noted and discussed. Patient received empiric treatment with fluids, antibiotics, given allergies to penicillins and ceftriaxone I favored Levaquin and clindamycin combination along with vancomycin. Heparin drip ordered. On reassessment patient mildly improved though still remains significantly ill. Most likely etiology of patient symptoms is multifactorial including acute pulmonary emboli and enterocolitis. The results of ED evaluation were discussed with the patient/family including plan for admission due to requirement for level of care not available if discharged to prevent significant worsening/deterioration. Patient/family agreeable with plan. Discussed with hospitalist service who was agreeable to admit patient. Medical Records I reviewed the patient's medical records. Lab Data I reviewed the patient's lab results. 06/03/22 13:58 06/03/22 13:58 Radiology Impressions Chest X-Ray 06/03/22 13:44 IMPRESSION: Bibasilar left greater than right atelectasis versus infiltrate. Chest/Abdomen/Pelvis CT 06/03/22 14:11 IMPRESSION: 1. Bilateral pulmonary emboli, largely on the right side, for instance on series 9, image 308. 2. Negative for right heart strain, RV to LV ratio equals approximately 0.9. 3. Mild patchy bilateral airspace infiltrates. 4. Abdominal aorta somewhat prominent 3.4 cm. 5. Coronary artery atherosclerotic calcifications. IMPRESSION: 1. Prominent fluid throughout the colon along as well as in the small bowel suggestive of an enterocolitis. 2. Valdez catheter in the urinary bladder. 3. L4 vertebral body somewhat trabeculated appearance suggestive of an underlying hemangioma. 4. Small hiatal hernia. 5. Cholecystectomy. 6. 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 7. Proximal renal artery ostia bilateral atherosclerotic calcifications with suspected at least 70% luminal narrowing with contrast seen distally. THIS REPORT CONTAINS FINDINGS THAT MAY BE CRITICAL TO PATIENT CARE. The findings were verbally communicated via telephone conference with Jake Florence at 4:07 PM LANDING SIGNAL OFFICER on 06/03/2022. The findings were acknowledged and understood. ADDENDUM: 06/03/22 1615 Under chest portion of the exam findings and impression should read ascending thoracic aorta somewhat prominent at 3.[address] 06/03/22 14:11 IMPRESSION: No acute intracranial abnormality. Venous Duplex 06/03/22 17:18 IMPRESSION: No evidence of deep vein thrombosis. Laboratory Results WBC 8.0 10^3/uL (4.0-10.0) 06/03/22 13:58 RBC 4.34 10^6/uL (4.1-5.3) 06/03/22 13:58 Hgb 12.0 g/dL (11.5-15.3) 06/03/22 13:58 Hct 40.6 % (37.0-47.0) 06/03/22 13:58 MCV 93.5 fl (81-99) 06/03/22 13:58 MCH 27.6 pg (28.0-34.0) L 06/03/22 13:58 MCHC 29.6 g/dL (30.0-36.0) L 06/03/22 13:58 RDW 15.9 % (12.1-15.1) H 06/03/22 13:58 Plt Count 219 10^3/cmm (130-400) 06/03/22 13:58 MPV 11.8 fL (7.4-10.4) H 06/03/22 13:58 Neut % (Auto) 53.0 % 06/03/22 13:58 Lymph % (Auto) 39.5 % 06/03/22 13:58 [place] % (Auto) 5.0 % 06/03/22 13:58 Eos % (Auto) 1.7 % 06/03/22 13:58 Baso % (Auto) 0.2 % 06/03/22 13:58 Neut # (Auto) 4.25 10^3/uL (1.8-7.7) 06/03/22 13:58 Lymph # (Auto) 3.2 10^3/uL (0.8-4.8) 06/03/22 13:58 [place] # (Auto) 0.4 10^3/uL (0.2-0.9) 06/03/22 13:58 Eos # (Auto) 0.1 10^3/uL (0.0-0.8) 06/03/22 13:58 Baso # (Auto) 0.0 10^3/uL (0.0-0.1) 06/03/22 13:58 Nucleated RBC % (auto) 0 % 06/03/22 13:58 Nucleated RBCs # 0.0 /100WBC 06/03/22 13:58 Specimen Type Arterial 06/03/22 13:55 Sample Site Radial, left 06/03/22 13:55 ABG pH 7.44 (7.35-7.45) 06/03/22 13:55 ABG pCO2 29.9 mmHg (35-45) L 06/03/22 13:55 ABG pO2 69.1 mmHg (80.0-100.0) L 06/03/22 13:55 ABG HCO3 20.2 mmol/L (22-26) L 06/03/22 13:55 ABG Base Excess -3.1 mmol/L (-2.0-2.0) L 06/03/22 13:55 Julian Test Pos 06/03/22 13:55 Hematocrit 34.3 % (37-47) L 06/03/22 13:55 O2 Delivery Device Not Reportable 06/03/22 13:55 O2 Liters/Min 7.0 % 06/03/22 13:55 Sex Worker Or Escort ID Amh 06/03/22 13:55 Blood Gas Notified Time 1630 06/03/22 13:55 Sodium 138 mmol/L (136-145) 06/03/22 13:58 Potassium 3.7 mmol/L (3.5-5.1) 06/03/22 13:58 Chloride 102 mmol/L (98-107) 06/03/22 13:58 Carbon Dioxide 19 mmol/L (22-29) L 06/03/22 13:58 Anion Gap 20.7 (5-19) H 06/03/22 13:58 BUN 11 mg/dL (8-23) 06/03/22 13:58 Creatinine 0.9 mg/dL (0.5-0.9) 06/03/22 13:58 GFR Calculation Not Reportable 06/03/22 13:58 Glucose 136 mg/dL (65-115) H 06/03/22 13:58 POC Glucose 132 mg/dL (70-110) H 06/03/22 13:49 Estimat Average Glucose 143 06/03/22 13:58 Hemoglobin A1c 6.6 % (4.0-6.0) H 06/03/22 13:58 Calculated Osmolality 287 mOsm/kg (285-295) 06/03/22 13:58 Lactic Acid 3.0 mmol/L (0.5-2.2) H 06/03/22 13:58 Calcium 9.0 mg/dL (8.5-10.5) 06/03/22 13:58 Magnesium 1.7 mg/dL (1.7-2.3) 06/03/22 13:58 Total Bilirubin 0.5 mg/dL (0.15-1.2) 06/03/22 13:58 AST 24 U/L (0-32) 06/03/22 13:58 ALT 20 U/L (0-33) 06/03/22 13:58 Alkaline Phosphatase 171 U/L (35-105) H 06/03/22 13:58 Troponin T Baseline 35 ng/L (0-10) H 06/03/22 13:58 C-Reactive Protein 31.7 mg/L (0.0-4.9) H 06/03/22 13:58 NT-Pro-B Natriuret Pep 950 pg/mL (0-125) H 06/03/22 13:58 Total Protein 6.9 g/dL (6.6-8.7) 06/03/22 13:58 Albumin 3.6 g/dL (3.5-5.2) 06/03/22 13:58 Globulin 3.3 g/dL (1.3-4.6) 06/03/22 13:58 Procalcitonin 0.08 ng/mL (0-0.5) 06/03/22 13:58 TSH 8.13 uIU/mL (0.27-4.20) H 06/03/22 13:58 Free T3 2.5 PG/ML (2.0-4.4) 06/03/22 13:58 Salicylates < 0.3 mg/dL (3-10) L 06/03/22 13:58 Acetaminophen < 5.0 ug/mL (10-30) L 06/03/22 13:58 Ethyl Alcohol < 10 mg/dL (0-10) 06/03/22 13:58 Influenza Type A Ag negative (Negative) 06/03/22 15:52 Influenza Type B Ag negative (Negative) 06/03/22 15:52 SARS-CoV-2 Ag (Rapid) negative (Negative) 06/03/22 15:52 Critical Care Time Critical Care Time: Critical Care Time: Yes Total Critical Care Time: 55 Attestation: Due to a high probability of clinically significant, possibly life threatening deterioration, the patient required my highest level of attention and preparedness to intervene emergently and I personally spent this critical care time directly and personally managing the patient. This critical care time included obtaining a history; examining the patient; pulse oximetry; ordering and review of laboratory and imaging studies; arranging urgent treatment with development of a management plan; evaluation of patient's response to treatment; frequent reassessment; and, discussions with other providers as applicable. It was exclusive of separately billable procedures. Primary system involved is ID and cardiovascular. Discharge Plan Discharge Patient Disposition: Admitted As Inpatient Admit Provider: Bautista Valentine Clinical Impression: Chest pain, Bilateral pulmonary embolism, Syncope, Acute alteration in mental status, Acute respiratory failure with hypoxia, Enterocolitis, History of recent pneumonia, Acidosis, lactic, SIRS (systemic inflammatory response syndrome) Condition: Stable Discharge Diet: Cardiac Discharge Activity: Resume usual activity Coding Level of Care Code ED Publications Inspector for Chg Fwd Exam Comprehensive
--- NOTE | 2022-06-03 13:44 | XRR_ITS ---
PROCEDURE INFORMATION: Exam: XR Chest Exam date and time: 06/03/2022 2:08 PM Age: 72 years old Clinical indication: Shortness of breath; Additional info: SOB TECHNIQUE: Imaging protocol: Radiologic exam of the chest. Views: 1 view. COMPARISON: CR XR chest 1V portable [id number] 05/23/2022 1:50 PM FINDINGS: Lungs: Bibasilar left greater than right atelectasis versus infiltrate. Pleural spaces: Unremarkable. No pleural effusion. No pneumothorax. Heart/Mediastinum: Unremarkable. No cardiomegaly. Bones/joints: Unremarkable. XR/XR chest 1V portable [id number] IMPRESSION: Bibasilar left greater than right atelectasis versus infiltrate.
[2022-06-03 13:53] LABS: Glucose Point of Care 132 mg/dL (70-110)
--- NOTE | 2022-06-03 13:53 | ECG_ITS ---
[facility] Test Date: 2022-06-03 Pat Name: Denise Sanches Department: Room: Gender: Female Auto Radiator Specialist: : [id number] Requested By: Jake Florence Order Number: [id number] [place] MD: Rasta Akins M.D. Measurements Intervals [place] Rate: 119 P: 65 [place]: 180 QRS: -60 QRSD: 85 T: 67 QT: 294 QTc: 414 Interpretive Statements SINUS TACHYCARDIA LEFT AXIS DEVIATION [QRS AXIS < -30] PATTERN CONSISTENT WITH PULMONARY DISEASE MINIMAL ST DEPRESSION [0.025+ mV ST DEPRESSION] Compared to ECG 05/23/2022 13:25:56 Left-axis deviation now present ST (T wave) deviation now present Sinus rhythm no longer present Left anterior fascicular block no longer present Electronically Signed On 06-04-2022 11:22:28 TRANSPORTATION INSPECTOR by Rasta Akins M.D. [email or web address]
[2022-06-03 14:07] LABS: ABG PCO2 29.9 mmHg (35-45); ABG PH Result 7.44 (7.35-7.45); Arterial Blood Gas Hematocrit 34.3 % (37-47); Base Excess ABG -3.1 mmol/L (-2.0-2.0); Blood Gas Allen Test Pos; Blood Gas Operator Identificat AMH; Blood Gas Sample Site Radial, left; Blood Gas Sample Type Arterial; HCO3 ABG 20.2 mmol/L (22-26); PO2 ABG 69.1 mmHg (80.0-100.0)
--- NOTE | 2022-06-03 14:11 | CTR_ITS ---
PROCEDURE INFORMATION: Exam: CTA Chest With Contrast Exam date and time: 06/03/2022 3:36 PM Age: 72 years old Clinical indication: Nausea and vomiting; Shortness of breath; Additional info: AMS, resp distress, cp, n/v TECHNIQUE: Imaging protocol: Computed tomographic angiography of the chest with contrast. 3D rendering (Not supervised by radiologist): MIP and/or 3D reconstructed images were created by the technologist. Radiation optimization: All CT scans at this facility use at least one of these dose optimization techniques: automated exposure control; mA and/or kV adjustment per patient size (includes targeted exams where dose is matched to clinical indication); or iterative reconstruction. Contrast material: OMNI 350; Contrast volume: 100 ml; Contrast route: INTRAVENOUS (IV); Other protocol: This patient has received [address] and 0 known cardiac nuclear medicine studies in the 12 months prior to the current study. COMPARISON: CT angio chest PE protcl [id number] 09/08/2017 11:40 AM RADIATION DOSE METRICS: Total DLP (mGy-cm): 1308.01 FINDINGS: Pulmonary arteries: Bilateral pulmonary emboli, largely on the right side, for instance on series 9, image 308. Aorta: Abdominal aorta somewhat prominent 3.4 cm. Lungs: Mild patchy bilateral airspace infiltrates. Pleural spaces: Unremarkable. No pneumothorax. No pleural effusion. Heart: Negative for right heart strain, RV to LV ratio equals approximately 0.9. Coronary arteries: Coronary artery atherosclerotic calcifications. Lymph nodes: Unremarkable. No enlarged lymph nodes. Bones/joints: Unremarkable. No acute fracture. Soft tissues: Unremarkable. PROCEDURE INFORMATION: Exam: CT Abdomen And Pelvis With Contrast Exam date and time: 06/03/2022 3:36 PM Age: 72 years old Clinical indication: Nausea and vomiting; Shortness of breath; Additional info: AMS, resp distress, cp, n/v TECHNIQUE: Imaging protocol: Computed tomography of the abdomen and pelvis with contrast. Radiation optimization: All CT scans at this facility use at least one of these dose optimization techniques: automated exposure control; mA and/or kV adjustment per patient size (includes targeted exams where dose is matched to clinical indication); or iterative reconstruction. Contrast material: OMNI 350; Contrast volume: 100 ml; Contrast route: INTRAVENOUS (IV); Other protocol: This patient has received [address] and 0 known cardiac nuclear medicine studies in the 12 months prior to the current study. COMPARISON: CR XR hip LT 2-3V wo/w pel* [id number] 06/18/2020 3:49 PM RADIATION DOSE METRICS: Total DLP (mGy-cm): 1308.01 FINDINGS: Diaphragm: Small hiatal hernia. Liver: Normal. No mass. Gallbladder and bile ducts: Cholecystectomy. Pancreas: Normal. No ductal dilation. Spleen: Normal. No splenomegaly. Adrenal glands: Normal. No mass. Kidneys and ureters: Normal. No hydronephrosis. Stomach and bowel: Prominent fluid throughout the colon along as well as in the small bowel suggestive of an enterocolitis. Small hiatal hernia. Appendix: No evidence of appendicitis. Intraperitoneal space: Unremarkable. No free air. No significant fluid collection. Vasculature: Proximal celiac and superior mesenteric artery eccentric atherosclerotic calcification with 50-60% luminal narrowing with contrast seen distally. Proximal renal artery ostia bilateral atherosclerotic calcifications with suspected at least 70% luminal narrowing with contrast seen distally. Lymph nodes: Unremarkable. No enlarged lymph nodes. Urinary bladder: Valdez catheter in the urinary bladder. Reproductive: Unremarkable as visualized. Bones/joints: L4 vertebral body somewhat trabeculated appearance suggestive of an underlying hemangioma. Soft tissues: Unremarkable. CT/CT angio chest w abd pel w con IMPRESSION: 1. Bilateral pulmonary emboli, largely on the right side, for instance on series 9, image 308. 2. Negative for right heart strain, RV to LV ratio equals approximately 0.9. 3. Mild patchy bilateral airspace infiltrates. 4. Abdominal aorta somewhat prominent 3.4 cm. 5. Coronary artery atherosclerotic calcifications. IMPRESSION: 1. Prominent fluid throughout the colon along as well as in the small bowel suggestive of an enterocolitis. 2. Valdez catheter in the urinary bladder. 3. L4 vertebral body somewhat trabeculated appearance suggestive of an underlying hemangioma. 4. Small hiatal hernia. 5. Cholecystectomy. 6. 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 7. Proximal renal artery ostia bilateral atherosclerotic calcifications with suspected at least 70% luminal narrowing with contrast seen distally. THIS REPORT CONTAINS FINDINGS THAT MAY BE CRITICAL TO PATIENT CARE. The findings were verbally communicated via telephone conference with Jake Florence at 4:07 PM LEAD NEURODIAGNOSTIC TECHNOLOGIST on 06/03/2022. The findings were acknowledged and understood.
--- NOTE | 2022-06-03 14:11 | CTR_ITS ---
PROCEDURE INFORMATION: Exam: CT Head Without Contrast Exam date and time: 06/03/2022 3:31 PM Age: 72 years old Clinical indication: Altered mental status/memory loss; Additional info: AMS TECHNIQUE: Imaging protocol: Computed tomography of the head without contrast. Radiation optimization: All CT scans at this facility use at least one of these dose optimization techniques: automated exposure control; mA and/or kV adjustment per patient size (includes targeted exams where dose is matched to clinical indication); or iterative reconstruction. Other protocol: This patient has received 0 known CTs and 0 known cardiac nuclear medicine studies in the 12 months prior to the current study. COMPARISON: No relevant prior studies available. RADIATION DOSE METRICS: Total DLP (mGy-cm): 961.48 FINDINGS: Brain: Normal. No hemorrhage. Unremarkable white matter. No mass effect. Cerebral ventricles: No ventriculomegaly. Paranasal sinuses: Visualized sinuses are unremarkable. No fluid levels. Mastoid air cells: Visualized mastoid air cells are well aerated. Bones/joints: Unremarkable. No acute fracture. Soft tissues: Unremarkable. CT/CT head wo con* [id number] IMPRESSION: No acute intracranial abnormality.
[2022-06-03 14:16] LABS: Basophils % 0.2 %; Eosinophils # 0.1 10^3/uL (0.0-0.8); Eosinophils % 1.7 %; Hematocrit 40.6 % (37.0-47.0); Lymphocytes # 3.2 10^3/uL (0.8-4.8); Lymphocytes % 39.5 %; Mean Corpuscular HGB Conc 29.6 g/dL (30.0-36.0); Mean Corpuscular Hemoglobin 27.6 pg (28.0-34.0); Mean Corpuscular Volume 93.5 fl (81-99); Mean Platelet Volume 11.8 fL (7.4-10.4); Monocytes # 0.4 10^3/uL (0.2-0.9); Neutrophils # 4.25 10^3/uL (1.8-7.7); Nucleated Red Blood Cells % 0 %; Platelet Count 219 10^3/cmm (130-400); Red Blood Count 4.34 10^6/uL (4.1-5.3); Red Cell Distribution Width 15.9 % (12.1-15.1)
[2022-06-03] MEDS: sodium chloride 0.9% 1,000 ML 999 ML IV (14:20)
[2022-06-03 14:41] LABS: Troponin(5th) Baseline 35 ng/L (0-10)
[2022-06-03] MEDS: clindamycin 600 MG/50 ML PREMIX 100 MG IV (14:58)
[2022-06-03 15:01] LABS: Reflex Lactate Order REFLEX LACTIC ORDERD
[2022-06-03 15:04] LABS: Acetaminophen < 5.0 ug/mL (10-30); Salicylate < 0.3 mg/dL (3-10)
[2022-06-03 15:05] LABS: Alcohol Level < 10 mg/dL (0-10)
[2022-06-03 15:06] LABS: Alanine Aminotransferase 20 U/L (0-33); Albumin Level 3.6 g/dL (3.5-5.2); Alkaline Phosphatase 171 U/L (35-105); Anion Gap 20.7 (5-19); Aspartate Amino Transferase 24 U/L (0-32); Blood Urea Nitrogen 11 mg/dL (8-23); C Reactive Protein 31.7 mg/L (0.0-4.9); Carbon Dioxide 19 mmol/L (22-29); Chloride 102 mmol/L (98-107); Globulin 3.3 g/dL (1.3-4.6); Glucose 136 mg/dL (65-115); Magnesium 1.7 mg/dL (1.7-2.3); NT Pro B Type Natriuretic Pept 950 pg/mL (0-125); Osmolality Calculated 287 mOsm/kg (285-295); Potassium 3.7 mmol/L (3.5-5.1); Procalcitonin 0.08 ng/mL (0-0.5); Sodium 138 mmol/L (136-145); Thyroid Stimulating Hormone 8.13 uIU/mL (0.27-4.20); Total Bilirubin 0.5 mg/dL (0.15-1.2); Total Protein 6.9 g/dL (6.6-8.7)
[2022-06-03] MEDS: vancomycin 1,500 MG/300 ML PIGGYBACK 200 MG IV (15:24)
--- NOTE | 2022-06-03 15:44 | ECG_ITS ---
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 Measurements Intervals [place] Rate: 94 P: 67 NJ: 179 QRS: -55 QRSD: 91 T: 51 QT: 325 QTc: 408 Interpretive Statements SINUS RHYTHM LEFT ANTERIOR FASCICULAR BLOCK [QRS AXIS <= -45, QR IN I, RS IN II] POSSIBLE ANTERIOR MYOCARDIAL INFARCTION , OF INDETERMINATE AGE [30 ms Q WAVE IN V3/V4, OR R < 0.2 mV IN V4] Compared to ECG 06/03/2022 16:29:31 Sinus tachycardia no longer present Myocardial infarct finding still present Electronically Signed On 06-04-2022 11:33:09 DRILLER [employer] by Rasta Akins M.D. [id number]
[2022-06-03] MEDS: iohexol 350 mg/mL 500 mL Btl (per mL) IV (15:54)
--- NOTE | 2022-06-03 16:29 | ECG_ITS ---
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 Measurements Intervals [place] Rate: 111 P: 75 RI: 168 QRS: -60 QRSD: 82 T: 70 QT: 304 QTc: 415 Interpretive Statements SINUS TACHYCARDIA LEFT ANTERIOR FASCICULAR BLOCK [QRS AXIS <= -45, QR IN I, RS IN II] POSSIBLE ANTERIOR MYOCARDIAL INFARCTION , PROBABLY OLD [30 ms Q WAVE IN V3/V4, OR R < 0.2 mV IN V4] Compared to ECG 06/03/2022 13:53:13 Left anterior fascicular block now present Myocardial infarct finding now present Left-axis deviation no longer present ST (T wave) deviation no longer present Electronically Signed On 06-04-2022 11:33:44 [employer] by Rasta Akins M.D. [id number]
[2022-06-03 16:41] LABS: SARS Covid-2 Antigen negative (Negative)
[2022-06-03 16:42] LABS: Influenza A by IFA negative (Negative); Influenza B by IFA negative (Negative)
--- NOTE | 2022-06-03 16:57 | PM.HP ---
Providers/Chief Complaint Admitting Physician: Bautista Valentine MD Primary Care Provider: William Marie DO Chief Complaint: SOB History of Present Illness Denise Sanches is a 72 year old female with a past medical history of status post LAD stenting, history of dyslipidemia, history of DVT in the past, carotid artery stenosis, CKD, asthma, hypertension, GERD, who presents [facility] for chest pain, syncopal episode. Patient tells me that she has been sick with pneumonia for the last few weeks, was diagnosed with a pneumonia, sent home on antibiotics from the emergency room. She tells me that her sister has also been sick was also diagnosed with pneumonia but was admitted to the hospital she spent a few days in the ICU, and eventually was discharged home. Both of them he tells me were tested for fluid COVID and were negative. She tells me that her sister is now home. However she continues to have some shortness of breath, nonproductive cough, low-grade fevers. She tells me that this afternoon, when she was going to the bathroom, sudden onset severe substernal chest pain, no diaphoresis, no nausea, no vomiting, no palpitations, and then her memory becomes fuzzy, the next thing she remembers is being on the floor, and her son had called EMS. In the emergency room she was found to be hypotensive, tachycardic, hypoxic, her mentation was disoriented. She was given oxygen, fluid boluses, had work-up done. Significant for bilateral pulmonary embolism, lactic acidosis, hypoxia chronic 5 L, hypotension. Currently her blood pressures are 102/71, pulse 112 sinus tachycardia respiratory rate 20, temperature 96.6 she is on 5 L saturating 90%, alert and awake, no evidence of respiratory distress no is in trigger costal retractions no nasal flaring, she is not short of breath with sentences. She feels significantly better, she is alert oriented x3. Denies any calf pain, no calf swelling, recent surgeries, hemoptysis Review of Systems Const: Reports: fever(s), chills, body aches, fatigue and malaise Eyes: Denies: change in vision Card: Reports: chest pain and syncope; Denies: palpitations Resp: Reports: dyspnea and non-productive cough GI: Denies: abdominal pain, nausea or vomiting : Denies: flank pain, difficulty voiding or dysuria Musc: Denies: back pain Skin/Breast: Denies: rash Neuro: Denies: headache(s), numbness in extremities, weakness in extremities or sensory changes Psych: Denies: anxiety Endo: Denies: polyuria Bhargav/Lymph: Denies: enlarged lymph nodes Medications/Allergies Home Medications Medication Instructions Recorded Confirmed Last Taken Type aspirin 81 mg tablet,delayed 81 mg PO DAILY@0800 05/19/19 06/03/22 05/23/22 History release (Adult Aspirin Regimen) budesonide-formoterol HFA 160 2 puff inhalation BID@0800,199910/31/19 06/03/22 05/23/22 History mcg-4.5 mcg/actuation aerosol inhaler (Symbicort) fluticasone propionate 50 1 spray intranasal DAILY@0800 10/31/19 06/03/22 05/23/22 History mcg/actuation nasal spray,suspension (Flonase Allergy Relief) pantoprazole 40 mg tablet,delayed 40 mg PO BID@0800,199910/31/19 06/03/22 05/23/22 History release simvastatin 80 mg tablet 40 mg PO BID 10/31/19 06/03/22 05/23/22 History docusate sodium 100 mg capsule 100 mg PO DAILY 10/28/20 06/03/22 05/23/22 History lisinopril 30 mg tablet 30 mg PO DAILY #90 tabs 08/12/21 06/03/22 05/23/22 Rx nitroglycerin 0.4 mg sublingual 0.4 mg sublingual Q5M PRN CHEST 09/13/21 06/03/22 Unknown Rx tablet (Nitrostat) PAINS #25 tabs loratadine 10 mg tablet 10 mg PO DAILY 12/13/21 06/03/22 05/23/22 History albuterol sulfate 90 mcg/actuation 1 puff inhalation QID PRN 05/23/22 06/03/22 Unknown Rx aerosol inhaler SHORTNESS OF BREATH/WHEEZING #6.7 grams dexamethasone 6 mg tablet 6 mg PO DAILY #6 tabs 05/23/22 06/03/22 Unknown Rx Allergies Allergy/AdvReac Type Severity Reaction Status Date / Time penicillin G Allergy Mild ADR/ALGY-Pa Verified 12/13/21 15:04 lpitations ceftriaxone [From Rocephin] Allergy Unknown Unknown Verified 12/13/21 15:04 doxycycline Allergy Unknown Unknown Verified 12/13/21 15:04 erythromycin base Allergy Unknown Unknown Verified 12/13/21 15:04 gentamicin Allergy Unknown Unknown Verified 12/13/21 15:04 ketoconazole Allergy Unknown Unknown Verified 12/13/21 15:04 sulfamethoxazole Allergy Unknown Unknown Verified 12/13/21 15:04 [From Bactrim] trimethoprim [From Bactrim] Allergy Unknown Unknown Verified 12/13/21 15:04 PFSH Acute PFSH: Medical History (Updated 06/03/22 @ 17:07 by Bautista Valentine MD) Asthma Carotid stenosis Chronic kidney disease (CKD) DVT (deep venous thrombosis) Essential (primary) hypertension GERD (gastroesophageal reflux disease) History of placement of stent in LAD coronary artery History of placement of stent in LAD coronary artery Plantar fasciitis Surgical History (Updated 06/03/22 @ 17:03 by Bautista Valentine MD) History of heart artery stent Family History Other Dementia Hypertension Denies family history of Diabetes CAD (coronary artery disease) Clotting disorder Hyperlipidemia Psychiatric illness Chronic kidney disease (CKD) Suicide Anesthesia complication Bleeding disorder Family history of premature coronary artery disease Lung disease Cancer Stroke Social History Smoking and tobacco status: never smoked Alcohol intake: current Alcohol intake frequency: holidays/special occasions only Marital status: Single Current occupational status: retired Vitals/I&O/Wt Last Vital Signs Temp 96.6 F L 06/03/22 13:40 Pulse 112 H 06/03/22 16:40 Resp 35 H 06/03/22 16:40 BP 102/71 06/03/22 16:40 Pulse Ox 98 06/03/22 16:40 O2 Del Method 06/03/22 15:50 O2 Flow Rate 5 06/03/22 15:50 Weight last 48 hrs Weight 74.843 kg Physical Exam Const: COMMON NORMALS: no acute distress and patient oriented x3 HENMT: COMMON NORMALS: normocephalic HEAD & SCALP: normocephalic Eye: COMMON NORMALS: Equal, round and reactive pupils present and EOMs intact bilaterally Neck/C-Spine: COMMON NORMALS: no JVD Lymph: LYMPHATIC: no lymphadenopathy noted Resp: COMMON NORMALS: normal respiratory effort, No retractions, No use of accessory muscles and clear to auscultation bilaterally AUSCULTATION: crackles and wheezes Cardio: COMMON NORMALS: regular rate, regular rhythm, S1 normal heart sound present and S2 normal heart sound present RATE: regular rate RHYTHM: regular rhythm HEART SOUNDS: S1 normal heart sound present and S2 normal heart sound present GI: COMMON NORMALS: Normal to inspection, nondistended, normoactive bowel sounds present, Soft to palpation and non-tender PALPATION: Yes Soft to palpation and Yes No hepatosplenomegaly present Extremity: COMMON NORMALS: no calf tenderness and no pedal edema Neuro: COMMON NORMALS: patient oriented x3, CN's II-XII intact bilaterally, moves all extremities and no focal motor deficits Psych: COMMON NORMALS: mental status grossly normal Urinary Catheter Management: Valdez: Cath Placed During This Visit: yes Urinary Catheter Date of Insertion: 06/03/22 Sepsis: Is patient septic: Yes Focused sepsis exam performed: Yes Focused sepsis exam: Bilateral lower extremity mottling, up to the level of knees, pale appearing, capillary refill greater than 3 seconds Data 06/03/22 13:58 06/03/22 13:58 A&P Assessment and plan (1) Syncope and collapse: (2) Bilateral pulmonary embolism: (3) Chest pain: (4) Acute alteration in mental status: (5) Acute respiratory failure with hypoxia: (6) Enterocolitis: (7) Bilateral pneumonia: (8) Septic shock: (9) Lactic acidosis: (10) NSTEMI (non-ST elevated myocardial infarction): (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: (12) Goals of care, counseling/discussion: Plan Acute hypoxic respiratory failure -Multifactorial -From bilateral pneumonia -Bilateral pulmonary embolism Plan -Admit to ICU -Oxygen therapy -Monitor respiratory status closely -Full code -Heparin for DVT prophylaxis Syncope and collapse -From history it sounds like true syncopal and collapse episode -Bilateral pulm embolisms, but no evidence of bilateral occlusive DVT, or radiographic evidence of RV strain -Does have NSTEMI -Symptoms are quite concerning for possible malignant arrhythmia -Monitor respiratory status closely, monitor telemetry, monitor troponin Bilateral pneumonia -Blood cultures -Sputum cultures -Urine bacterial antigens -COVID-19 PCR -Vancomycin, meropenem Bilateral pulmonary embolism -Cardiac echocardiogram -Venous ultrasound -Heparin drip Septic shock -Due to hypotension, tachycardia, tachypnea, hypothermia, lactic acidosis -From bilateral pneumonia -From pulmonary embolism -Responded to fluid boluses Lactic acidosis -Pulm bilateral pulmonary embolism and bilateral pneumonia -Monitor Chest pain with NSTEMI, likely from pneumonia, pulm embolism with history of CAD -cardiac echo -heparin drip, -aspirin, statin -serial EKGs, serial troponins, telemetry monitoring Altered mental status -Currently alert oriented x3 Abdominal vascular with arthrosclerosis Proximal celiac and superior mesenteric artery eccentric atherosclerotic calcification with 50-60% luminal narrowing with contrast seen distally. -No guarding, no rebound, no rigidity, monitor Enterocolitis Prominent fluid throughout the colon along as well as in the small bowel suggestive of an enterocolitis. Attestations Medical Necessity Statement*: Patient requires hospital admission, inpatient, greater than 2 midnights, for septic shock, syncope and collapse, bilateral pulm embolism, NSTEMI, lactic acidosis, tachycardia, bilateral pneumonia, requires ICU admission Critical Care Time: Critical care time spent 50 minutes Coding Level of Care Code Acute Code for Chg Fwd Diagnoses Syncope and collapse R55 Bilateral pulmonary embolism I26.99 Chest pain R07.9 Acute alteration in mental status R41.82 Acute respiratory failure with hypoxia J96.01 Enterocolitis K52.9 Bilateral pneumonia J18.9 Septic shock A41.9; R65.21 Lactic acidosis E87.20 NSTEMI (non-ST elevated myocardial infarction) I21.4 Atherosclerosis of visceral artery of abdomen I70.8 Goals of care, counseling/discussion Z71.89 Sepsis Event Note Evaluation Current stage of sepsis: sepsis Initial hypotension due to sepsis/infection: MAP < 65 mmHg Possible source: pulmonary Focused Exam Vital Signs Temp Pulse Resp BP Pulse Ox O2 Del Method O2 Flow Rate 06/03/22 16:40 112 H 35 H 102/71 98 06/03/22 16:30 112 H 24 H 123/57 98 06/03/22 16:20 117 H 23 H 123/57 99 06/03/22 16:10 121 H 34 H 102/61 100 06/03/22 16:00 136 H 35 H 99 06/03/22 15:50 126 H 40 H 97 Nasal Cannula 5 06/03/22 15:30 121/65 06/03/22 15:20 122 H 26 H 121/65 99 06/03/22 15:10 127 H 32 H 84/57 63 L 06/03/22 15:00 119 H 44 H 06/03/22 14:50 113 H 19 H 91 06/03/22 14:40 110 H 36 H 97 06/03/22 14:30 117 H 24 H 92 06/03/22 14:20 107 H 43 H 94 06/03/22 14:10 112 H 39 H 96/60 94 06/03/22 14:00 116 H 39 H 96/60 95 06/03/22 13:50 119 H 38 H 96/60 96 06/03/22 13:47 116 H 26 H 96/60 97 06/03/22 13:40 96.6 F L 116 H 35 H 77/54 96 Simple Mask 8 Respiratory exam: Present wheezes Cardiovascular exam: Present tachycardia Capillary refill: > 3 Seconds Peripheral pulse strength: 1+ Faint Skin exam: mottling Date exam was performed: 06/03/22 Time exam was performed: 17:05 Bedside Monitoring Fluid responsiveness: Fluid Responsive Date bedside monitoring was performed: 06/03/22 Time bedside monitoring was performed: 17:05 Problem List (1) Syncope and collapse: Status: Acute (2) Bilateral pulmonary embolism: Status: Acute (3) Chest pain: Status: Acute (4) Acute alteration in mental status: Status: Acute (5) Acute respiratory failure with hypoxia: Status: Acute (6) Enterocolitis: Status: Acute (7) Bilateral pneumonia: Status: Acute (8) Septic shock: Status: Acute (9) Lactic acidosis: Status: Acute (10) NSTEMI (non-ST elevated myocardial infarction): Status: Acute (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: Status: Acute (12) Goals of care, counseling/discussion: Status: Acute
[2022-06-03 17:17] LABS: Blood Gas CCRB Time 1630
--- NOTE | 2022-06-03 17:18 | USR_ITS ---
PROCEDURE INFORMATION: Exam: US Duplex Lower Extremity Veins, Bilateral Exam date and time: 06/03/2022 6:45 PM Age: 72 years old Clinical indication: Edema, localized and other: SOB; Lower extremity, bilateral; Additional info: Dvt TECHNIQUE: Imaging protocol: Real-time duplex ultrasound of the bilateral extremities with 2-D lanier scale, color Doppler flow and spectral waveform analysis including responses to compression and other maneuvers (when performed) with image documentation. Complete exam focused on the lower extremity veins. COMPARISON: MR knee LT wo con* [id number] 07/09/2020 8:05 AM FINDINGS: Right deep veins: Unremarkable. The common femoral, femoral, proximal profunda femoral and popliteal veins are patent without thrombus. Normal Doppler waveforms. Normal compressibility and/or augmentation response. Right superficial veins: Saphenofemoral junction is patent without thrombus. Left deep veins: Unremarkable. The common femoral, femoral, proximal profunda femoral and popliteal veins are patent without thrombus. Normal Doppler waveforms. Normal compressibility and/or augmentation response. Left superficial veins: Saphenofemoral junction is patent without thrombus. Soft tissues: Unremarkable. US/[place] [id number] IMPRESSION: No evidence of deep vein thrombosis.
[2022-06-03 17:23] LABS: INR 1.22 (0.8-1.2); Partial Thromboplastin Time 23.5 SECONDS (23.9-36.7)
[2022-06-03 17:31] LABS: Protein Urine 1+ (Negative); Specific Gravity, Urine 1.005 (1.005-1.030); Urine Appearance SL Hazy (CLEAR); Urine Color Straw (Yellow); pH Urine 8 (5-7)
[2022-06-03 17:31] LABS: Lactic Acid level (Lactate) 3.3 mmol/L (0.5-2.2)
[2022-06-03 17:32] LABS: Add Urine Microscopic? YES; Bilirubin Urine Neg (Negative); Blood Urine 3+ (Negative); Glucose Urine UA 1+ (Normal); Ketones Urine Negative (Negative); Leukocyte Esterase Urine Negative (Negative); Nitrate Urine Negative (Negative); Sulfosalicylic Acid Urine Positive (Negative); Urobilinogen Urine Norm (Negative)
[2022-06-03 17:32] LABS: Troponin 5 2HR 32.73 ng/L (0-10)
[2022-06-03 17:33] LABS: RBC Urine 15-25 /hpf (0-2)
[2022-06-03 17:34] LABS: Bacteria Urine 1+ /hpf; Mucus Urine TRACE /hpf; WBC Urine 0-4 /hpf (0-5)
[2022-06-03 17:35] LABS: Add Urine Culture? Yes; Amorphous Sediment Urine 1+ /hpf; Hyaline Casts Urine 0-4 /lpf
[2022-06-03 17:43] LABS: Troponin 5 2HR Delta -2.27 ABS# (0-10)
[2022-06-03 17:47] LABS: Free T4 Free Thyroxine 1.33 ng/dL (0.82-1.77)
[2022-06-03] MEDS: meropenem 1,000 MG in sodium chloride 0.9% (plus) 50 ML 100 MG IV (18:17)
[2022-06-03] MEDS: magnesium lactate 84 mg Tablet PO (18:17)
[2022-06-03] MEDS: heparin drip 25,000 UNIT/500 ML PREMIX 21 UNIT IV (18:30)
--- NOTE | 2022-06-03 19:15 | PC.NURSE ---
PT was brought to the ICU on 5L NC and was A&Ox4. Valdez in place and one IV in left AC. 2 bags of medications have been given to son.
[2022-06-03] MEDS: pantoprazole DR 40 mg Tablet PO (19:20)
[2022-06-03] MEDS: levofloxacin-dextrose 5 % 750 MG/150 ML PREMIX 100 MG IV (19:20)
[2022-06-03] MEDS: acetaminophen 325 mg Tablet 650 MG PO (19:44)
[2022-06-03] MEDS: ipratropium 0.5 mg/2.5 mL Neb INHALATION (20:06)
[2022-06-03] MEDS: albuterol 2.5 mg/3 mL Neb INHALATION (20:06)
[2022-06-03] MEDS: budesonide 0.5 mg/2 mL Neb INHALATION (20:07)
[2022-06-03 20:20] LABS: Troponin 5 6HR 35.77 ng/L (0-10)
[2022-06-03 20:22] LABS: Troponin 5 6HR Delta 0.77 ng/L (0-12)
--- NOTE | 2022-06-03 21:20 | PC.NURSE ---
Blood Pressure Patient's blood pressure increasingly low, ranging from 76-79 systolic and 40-45 diastolic. [facility] fluid assessment performed with a result of 9.7% SVI indicating patient is not fluid responsive. Dr. Villa contacted and order received for the initiation of a levophed drip per sepsis protocol. See MAR for details.
[2022-06-03 21:54] LABS: Adenovirus Not Detected (NOT DETECT); Chlamydia Pneumoniae Not Detected (NOT DETECT); Coronavirus 229E,HKU1,NL63,OC4 Not Detected (NOT DETECT); Human Metapneumovirus Not Detected (NOT DETECT); Human Rhinovirus/Enterovirus Not Detected (NOT DETECT); Influenza A Not Detected (NOT DETECT); Influenza A H1 Not Detected (NOT DETECT); Influenza A H1-2009 Not Detected (NOT DETECT); Influenza A H3 Not Detected (NOT DETECT); Influenza B Not Detected (NOT DETECT); Mycoplasma Pneumoniae Not Detected (NOT DETECT); Parainfluenza Virus Type 1 Not Detected (NOT DETECT); Parainfluenza Virus Type 2 Not Detected (NOT DETECT); Parainfluenza Virus Type 3 Not Detected (NOT DETECT); Parainfluenza Virus Type 4 Not Detected (NOT DETECT); Respiratory Syncytial Virus A Not Detected (NOT DETECT); Respiratory Syncytial Virus B Not Detected (NOT DETECT); SARS-COV-2 Not Detected (NOT DETECT)
[2022-06-04] VITALS (86 sets, daily range): BP systolic 75–123; BP diastolic 41–65; PULSE 57–87; RESP 16–18; TEMP 36.8–37; O2SAT 91–99; BMI 30.1
[2022-06-04] MEDS: ipratropium 0.5 mg/2.5 mL Neb INHALATION ×6 (00:03→20:03)
[2022-06-04] MEDS: albuterol 2.5 mg/3 mL Neb INHALATION ×6 (00:04→20:03)
[2022-06-04] MEDS: meropenem 1,000 MG in sodium chloride 0.9% (plus) 50 ML 100 MG IV ×3 (00:18→20:52)
[2022-06-04 00:52] LABS: Basophils % 0.2 %; Hematocrit 30.5 % (37.0-47.0); Lymphocytes # 1.1 10^3/uL (0.8-4.8); Lymphocytes % 6.2 %; Mean Corpuscular HGB Conc 29.5 g/dL (30.0-36.0); Mean Platelet Volume 11.6 fL (7.4-10.4); Monocytes # 0.8 10^3/uL (0.2-0.9); Monocytes % 4.6 %; Neutrophils # 15.86 10^3/uL (1.8-7.7); Neutrophils % 88.5 %; Nucleated Red Blood Cells % 0 %; Platelet Count 173 10^3/cmm (130-400); Red Blood Count 3.21 10^6/uL (4.1-5.3); White Blood Count 17.9 10^3/uL (4.0-10.0)
[2022-06-04 01:13] LABS: Partial Thromboplastin Time 124.6 SECONDS (23.9-36.7)
[2022-06-04 01:20] LABS: Alanine Aminotransferase 16 U/L (0-33); Albumin Level 2.7 g/dL (3.5-5.2); Alkaline Phosphatase 139 U/L (35-105); Anion Gap 15.8 (5-19); Aspartate Amino Transferase 22 U/L (0-32); Blood Urea Nitrogen 16 mg/dL (8-23); Carbon Dioxide 20 mmol/L (22-29); Chloride 103 mmol/L (98-107); Globulin 3.1 g/dL (1.3-4.6); Glucose 154 mg/dL (65-115); Magnesium 1.5 mg/dL (1.7-2.3); NT Pro B Type Natriuretic Pept 1248 pg/mL (0-125); Osmolality Calculated 284 mOsm/kg (285-295); Phosphorus 3.2 mg/dL (2.5-4.5); Potassium 3.8 mmol/L (3.5-5.1); Sodium 135 mmol/L (136-145); Total Bilirubin 0.6 mg/dL (0.15-1.2); Total Protein 5.8 g/dL (6.6-8.7)
[2022-06-04] MEDS: acetaminophen 325 mg Tablet 650 MG PO ×2 (04:32→20:52)
[2022-06-04] MEDS: magnesium lactate 84 mg Tablet PO (05:22)
--- NOTE | 2022-06-04 06:00 | USCV_ITS ---
Denise Sanches Age: 72 Gender: F : 1950 Exam Date: 06/04/2022 09:52 Ordering Phys: Bautista Valentine MD Technologist: CHAGO [place] [facility] [place]: sob BP: 96 / 44 HR: 80 Rhythm: Sinus Technical Quality: Adequate MEASUREMENTS (Male / Female) Normal Values 2D ECHO LV Diastolic Diameter PLAX 3.8 cm 4.2 - 5.9 / 3.9 - 5.3 cm LV Systolic Diameter PLAX 2.3 cm IVS Diastolic Thickness 0.8 cm 0.6 - 1.0 / 0.6 - 0.9 cm IVS Systolic Thickness 0.9 cm LVPW Diastolic Thickness 0.8 cm 0.6 - 1.0 / 0.6 - 0.9 cm LVPW Systolic Thickness 1.1 cm LVOT Diameter 2.1 cm LV Ejection Fraction 2D Teich 69.8 % LV Ejection Fraction MOD 2C 61.0 % LV Ejection Fraction 2C AL 60.9 % LA Diameter 1.9 cm IVC Diameter 1.4 cm M-MODE Aortic Annulus Diameter 3.3 cm LA Ao Ratio MM 0.6 MV E Point Septal Separation 1.0 cm DOPPLER AV Peak Velocity 186.0 cm/s LVOT Peak Velocity 198.0 cm/s AV Area Cont Eq vti 3.4 cm squared AV Area Cont Eq pk 3.7 cm squared MV Area PHT 2.9 cm squared Mitral E to A Ratio 1.2 MV E' Velocity 53.5 cm/s Mitral E to MV E' Ratio 9.4 Mitral E to LV E' Lateral Ratio 7.7 Mitral E to LV E' Septal Ratio 12.3 TR Peak Velocity 214.0 cm/s TR Peak Gradient 18.3 mmHg TV Peak E Velocity 53.0 cm/s Right Atrial Pressure 3.0 mmHg Pulmonary Artery Systolic Pressu 21.3 mmHg PV Peak Velocity 141.0 cm/s FINDINGS Left Ventricle Left ventricle is normal size. LV systolic function is normal with EF of 55 to 60%. No regional wall motion abnormalities are seen. Diastolic function is normal Right Ventricle Normal in size and function Right Atrium Normla in size Left Atrium Normal in size Mitral Valve Structurally normal mitral valve. Aortic Valve Structurally normal aortic valve. No significant stenosis or regurgitation. Tricuspid Valve Trace tricuspid regurgitation. Insufficient TR jet to calculate RVSP Pulmonic Valve Not well visualized. Pericardium Normal Aorta Normal in size IVC Appears to be normal CONCLUSIONS LV systolic function is normal with EF of 55-60% Diastolic function is normal Trace tricuspid regurgitation No comparison studies are available Rasta Akins MD (Electronically Signed) Final Date: 04 June 2022 11:04 S
[2022-06-04] MEDS: budesonide 0.5 mg/2 mL Neb INHALATION ×2 (08:08→20:03)
[2022-06-04] MEDS: magnesium sulfate premix 2 GM/50 ML PIGGYBACK IV (08:38)
[2022-06-04] MEDS: aspirin 81 mg EC Tablet PO (08:42)
[2022-06-04] MEDS: atorvastatin 40 mg Tablet 20 MG PO (08:42)
[2022-06-04] MEDS: pantoprazole DR 40 mg Tablet PO (08:42)
[2022-06-04 08:56] LABS: Basophils # 0.1 10^3/uL (0.0-0.1); Basophils % 0.4 %; Eosinophils # 0.1 10^3/uL (0.0-0.8); Eosinophils % 0.9 %; Hematocrit 29.6 % (37.0-47.0); Hemoglobin 8.7 g/dL (11.5-15.3); Lymphocytes # 1.7 10^3/uL (0.8-4.8); Lymphocytes % 12.8 %; Mean Corpuscular HGB Conc 29.4 g/dL (30.0-36.0); Mean Corpuscular Hemoglobin 28.2 pg (28.0-34.0); Mean Corpuscular Volume 96.1 fl (81-99); Mean Platelet Volume 12.6 fL (7.4-10.4); Monocytes # 0.9 10^3/uL (0.2-0.9); Monocytes % 6.4 %; Neutrophils # 10.44 10^3/uL (1.8-7.7); Nucleated Red Blood Cells % 0 %; Platelet Count 120 10^3/cmm (130-400); Red Blood Count 3.08 10^6/uL (4.1-5.3); Red Cell Distribution Width 16.3 % (12.1-15.1); White Blood Count 13.2 10^3/uL (4.0-10.0)
[2022-06-04] MEDS: vancomycin 1,000 MG in sodium chloride 0.9% 250 ML 250 MG IV (08:57)
[2022-06-04 08:59] LABS: Reticulocyte % 1.9 % (0.5-2.0)
[2022-06-04] MEDS: lactated ringers 500 ML 999 ML IV (09:30)
[2022-06-04 09:33] LABS: Ferritin 425 ng/mL (15-150); Iron 36 ug/dL (37-145)
--- NOTE | 2022-06-04 14:15 | P.PN_ITS ---
Subjective Subjective: Patient was seen this morning, she feels a lot better however she is on 16 of Levophed on 2 L, no fevers, chills, no chest pain, no palpitations, lightheadedness, dizziness no history of GI bleeds in the past Vitals/I&O/Wt Last Vital Signs Temp 98.6 F 06/04/22 04:00 Pulse 79 06/04/22 14:00 Resp 18 06/04/22 12:40 BP 91/42 06/04/22 12:00 Pulse Ox 96 06/04/22 12:40 O2 Del Method 06/04/22 12:40 O2 Flow Rate 1 06/04/22 08:09 06/03/22 06/04/22 06/04/22 22:59 06:59 14:59 Intake Total 439.972 / 439.972 828.901 / 1268.873 307.594 / 307.594 Output Total 450 / 460 Balance 429.972 / 429.972 378.901 / 808.873 307.594 / 307.594 Weight last 48 hrs Weight 82.1 kg Weight 82.1 kg Weight 74.843 kg Physical Exam Const: COMMON NORMALS: no acute distress and patient oriented x3 Resp: COMMON NORMALS: normal respiratory effort, No retractions, No use of accessory muscles and clear to auscultation bilaterally AUSCULTATION: clear to auscultation bilaterally Cardio: COMMON NORMALS: regular rate, regular rhythm, S1 normal heart sound present and S2 normal heart sound present RATE: regular rate RHYTHM: regular rhythm HEART SOUNDS: S1 normal heart sound present and S2 normal heart sound present GI: COMMON NORMALS: Normal to inspection, nondistended, normoactive bowel sounds present and non-tender Extremity: COMMON NORMALS: no pedal edema Neuro: COMMON NORMALS: patient oriented x3 Psych: COMMON NORMALS: mental status grossly normal Urinary Catheter Management: Valdez: Cath Placed During This Visit: yes Reason for Continuing Indwelling Catheter: Accurate Measurement of Urinary Output in Critically Ill Patients Urinary Catheter Date of Insertion: 06/03/22 Data 06/04/22 08:14 06/04/22 00:44 Micro: Microbiology 06/03/22 19:45 Blood Culture - Preliminary Blood SPECIMEN COLLECTED 06/03/22 16:44 Blood Culture - Preliminary Blood SPECIMEN COLLECTED A&P Assessment and plan (1) Syncope and collapse: (2) Bilateral pulmonary embolism: (3) Chest pain: (4) Acute alteration in mental status: (5) Acute respiratory failure with hypoxia: (6) Enterocolitis: (7) Bilateral pneumonia: (8) Septic shock: (9) Lactic acidosis: (10) NSTEMI (non-ST elevated myocardial infarction): (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: (12) Goals of care, counseling/discussion: (13) Acute anemia: (14) Acute kidney injury: (15) Hypomagnesemia: Plan Acute hypoxic respiratory failure -Multifactorial -From bilateral pneumonia -Bilateral pulmonary embolism Plan -Admit to ICU -Oxygen therapy -Monitor respiratory status closely -Full code -Heparin for DVT prophylaxis Syncope and collapse -From history it sounds like true syncopal and collapse episode -Bilateral pulm embolisms, but no evidence of bilateral occlusive DVT, or radiographic evidence of RV strain -Does have NSTEMI -Symptoms are quite concerning for possible malignant arrhythmia -Monitor respiratory status closely, monitor telemetry, monitor troponin Bilateral pneumonia -Blood cultures -Sputum cultures -Urine bacterial antigens -COVID-19 PCR -Vancomycin, meropenem Bilateral pulmonary embolism -Cardiac echocardiogram, ejection fraction 55 to 60%, diastolic function normal -Venous ultrasound negative for DVT -Heparin drip Septic shock -16 the Levophed, wean as tolerated -Due to hypotension, tachycardia, tachypnea, hypothermia, lactic acidosis -From bilateral pneumonia -From pulmonary embolism -Responded to fluid boluses Lactic acidosis -Pulm bilateral pulmonary embolism and bilateral pneumonia -Monitor Chest pain with NSTEMI, likely from pneumonia, pulm embolism with history of CAD -heparin drip, -aspirin, statin -serial EKGs, serial troponins, telemetry monitoring Altered mental status -Currently alert oriented x3 Abdominal vascular with arthrosclerosis Proximal celiac and superior mesenteric artery eccentric atherosclerotic calcification with 50-60% luminal narrowing with contrast seen distally. -No guarding, no rebound, no rigidity, monitor Enterocolitis Prominent fluid throughout the colon along as well as in the small bowel suggestive of an enterocolitis. Hypomagnesemia, replace Acute anemia hemoglobin down to 8.7, monitor hemoglobins every 4 hours -Iron studies, Hemoccult stool -Protonix, Carafate Plan for to a remains in shock on 16 of Levophed, continue heparin drip, continue broad-spectrum antibiotic therapy monitor respiratory status, continue bedrest, monitor hemoglobin as she has become anemic, monitor respiratory status closely, monitor for bloody or black stools, replace magnesium, Attestations Medical Necessity Statement*: Patient requires hospitalization, for septic shock, pneumonia, syncope, bilateral pulmonary embolism, lactic acidosis, NS ARTHUR, hypomagnesemia, acute anemia Critical Care Time: Critical care time spent over 50 minutes Coding Level of Care Code Acute Code for [facility] Fwd Diagnoses Syncope and collapse R55 Bilateral pulmonary embolism I26.99 Chest pain R07.9 Acute alteration in mental status R41.82 Acute respiratory failure with hypoxia J96.01 Enterocolitis K52.9 Bilateral pneumonia J18.9 Septic shock A41.9; R65.21 Lactic acidosis E87.20 NSTEMI (non-ST elevated myocardial infarction) I21.4 Atherosclerosis of visceral artery of abdomen I70.8 Goals of care, counseling/discussion Z71.89 Acute anemia D64.9 Acute kidney injury N17.9 Hypomagnesemia E83.42
[2022-06-04 14:23] LABS: Cortisol Random 14.27 ug/dL (2.47-19.5)
[2022-06-04] MEDS: sucralfate 1 gm Tablet PO (15:22)
[2022-06-04 15:42] LABS: Partial Thromboplastin Time 132.8 SECONDS (23.9-36.7)
[2022-06-04 15:56] LABS: Estmated Average Glucose 143; Hemoglobin A1C 6.6 % (4.0-6.0)
[2022-06-04] MEDS: iron sucrose 200 MG in sodium chloride 0.9% (100 ml) 100 ML 220 MG IV (15:56)
[2022-06-04 16:05] LABS: Hematocrit 26.9 % (37.0-47.0); Hemoglobin 8.2 g/dL (11.5-15.3)
[2022-06-04] MEDS: pantoprazole 40 mg SDV IVP (16:10)
[2022-06-04 17:02] LABS: T3 Free 2.5 PG/ML (2.0-4.4)
[2022-06-04 18:39] LABS: Hematocrit 27.6 % (37.0-47.0); Hemoglobin 8.3 g/dL (11.5-15.3)
--- NOTE | 2022-06-04 18:44 | PC.NURSE ---
This nurse notified Dr. Valentine of decreased hgb and 1 bloody stool noted, Dr. Valentine gave order to hold Heparin drip. Shift Summary, uneventful shift patient AO with no c/o, still lethargic
[2022-06-04 20:35] LABS: Hematocrit 28.2 % (37.0-47.0); Hemoglobin 8.3 g/dL (11.5-15.3)
[2022-06-04 20:41] LABS: Partial Thromboplastin Time 47.2 SECONDS (23.9-36.7)
[2022-06-04 22:03] LABS: Amphetamines Screen Urine Negative (Negative); Barbiturates Screen Urine Negative (Negative); Benzodiazepines Screen Urine Negative (Negative); Cocaine Screen Urine Negative (Negative); Opiate Screen Urine Negative (Negative); PCP Screen Urine Negative (Negative); THC Screen Urine Negative (Negative)
[2022-06-05] VITALS (79 sets, daily range): BP systolic 82–151; BP diastolic 44–87; PULSE 53–123; RESP 16–20; TEMP 36.9–37.1; O2SAT 88–98
[2022-06-05 01:53] LABS: Hematocrit 26.7 % (37.0-47.0)
[2022-06-05] MEDS: sucralfate 1 gm Tablet PO ×2 (01:57→14:56)
[2022-06-05] MEDS: pantoprazole 40 mg SDV IVP ×2 (01:58→14:56)
[2022-06-05 02:20] LABS: Alanine Aminotransferase 12 U/L (0-33); Albumin Level 2.7 g/dL (3.5-5.2); Alkaline Phosphatase 110 U/L (35-105); Anion Gap 15.7 (5-19); Aspartate Amino Transferase 17 U/L (0-32); Blood Urea Nitrogen 11 mg/dL (8-23); C Reactive Protein 107.8 mg/L (0.0-4.9); Calcium 7.8 mg/dL (8.5-10.5); Carbon Dioxide 20 mmol/L (22-29); Chloride 108 mmol/L (98-107); Globulin 2.1 g/dL (1.3-4.6); Glucose 112 mg/dL (65-115); Magnesium 1.9 mg/dL (1.7-2.3); Osmolality Calculated 290 mOsm/kg (285-295); Phosphorus 2.7 mg/dL (2.5-4.5); Potassium 3.7 mmol/L (3.5-5.1); Sodium 140 mmol/L (136-145); Total Bilirubin 0.3 mg/dL (0.15-1.2); Total Protein 4.8 g/dL (6.6-8.7)
[2022-06-05 02:29] LABS: NT Pro B Type Natriuretic Pept 643 pg/mL (0-125)
[2022-06-05] MEDS: ipratropium 0.5 mg/2.5 mL Neb INHALATION ×5 (04:18→19:50)
[2022-06-05] MEDS: albuterol 2.5 mg/3 mL Neb INHALATION ×5 (04:18→19:50)
[2022-06-05 04:33] LABS: Basophils # 0.1 10^3/uL (0.0-0.1); Basophils % 0.7 %; Eosinophils # 0.2 10^3/uL (0.0-0.8); Eosinophils % 2.9 %; Hematocrit 28.5 % (37.0-47.0); Hemoglobin 8.4 g/dL (11.5-15.3); Lymphocytes # 1.1 10^3/uL (0.8-4.8); Lymphocytes % 13.8 %; Mean Corpuscular HGB Conc 29.5 g/dL (30.0-36.0); Mean Corpuscular Hemoglobin 28.3 pg (28.0-34.0); Mean Platelet Volume 11.5 fL (7.4-10.4); Monocytes # 0.6 10^3/uL (0.2-0.9); Monocytes % 7.8 %; Neutrophils # 6.05 10^3/uL (1.8-7.7); Neutrophils % 74.1 %; Nucleated Red Blood Cells % 0 %; Platelet Count 165 10^3/cmm (130-400); Red Blood Count 2.97 10^6/uL (4.1-5.3); Red Cell Distribution Width 16.4 % (12.1-15.1); White Blood Count 8.2 10^3/uL (4.0-10.0)
[2022-06-05] MEDS: budesonide 0.5 mg/2 mL Neb INHALATION ×2 (08:04→19:50)
--- NOTE | 2022-06-05 08:33 | P.CONIM_ITS ---
Providers/Reason For Consult Consulting Physician/Specialty*: Rasta Akins MD/ Interventional Cardiology Reason for Consult*: Pulmonary emboli/ GI bleed/IVC filter placement Requesting Physician: Dr Valentine Attending Physician: Bautista Valentine MD Primary Care Provider: William Marie DO History of Present Illness History of Present Illness Denise Sanches is a 72 year old female with past medical history of CAD, carotid artery stenosis, COPD, hypertension but presented to the hospital with syncope and chest pain and was found to have bilateral pulmonary emboli. No occlusive DVT was seen. Her hemoglobin was dropping and she is requiring Levophed. GI bleed is worked up however anticoagulation cannot be given because of that. Hospitalist team is consulted us for IVC filter placement. No RV strain noted. Echo shows normal LV systolic function Review of Systems Const: Reports: fever(s), chills, body aches, fatigue and malaise Eyes: Denies: change in vision Card: Reports: chest pain and syncope; Denies: palpitations Resp: Reports: dyspnea and non-productive cough GI: Denies: abdominal pain, nausea or vomiting : Denies: flank pain, difficulty voiding or dysuria Musc: Denies: back pain Skin/Breast: Denies: rash Neuro: Denies: headache(s), numbness in extremities, weakness in extremities or sensory changes Psych: Denies: anxiety Endo: Denies: polyuria Bhargav/Lymph: Denies: enlarged lymph nodes Medications/Allergies Home Medications Medication Instructions Recorded Confirmed Last Taken Type aspirin 81 mg tablet,delayed 81 mg PO DAILY@0800 05/19/19 06/03/22 05/23/22 History release (Adult Aspirin Regimen) budesonide-formoterol HFA 160 2 puff inhalation BID@0800,199910/31/19 06/03/22 05/23/22 History mcg-4.5 mcg/actuation aerosol inhaler (Symbicort) fluticasone propionate 50 1 spray intranasal DAILY@0800 10/31/19 06/03/22 05/23/22 History mcg/actuation nasal spray,suspension (Flonase Allergy Relief) pantoprazole 40 mg tablet,delayed 40 mg PO BID@0800,199910/31/19 06/03/22 05/23/22 History release simvastatin 80 mg tablet 40 mg PO BID 10/31/19 06/03/22 05/23/22 History docusate sodium 100 mg capsule 100 mg PO DAILY 10/28/20 06/03/22 05/23/22 History lisinopril 30 mg tablet 30 mg PO DAILY #90 tabs 08/12/21 06/03/22 05/23/22 Rx nitroglycerin 0.4 mg sublingual 0.4 mg sublingual Q5M PRN CHEST 09/13/21 06/03/22 Unknown Rx tablet (Nitrostat) PAINS #25 tabs loratadine 10 mg tablet 10 mg PO DAILY 12/13/21 06/03/22 05/23/22 History albuterol sulfate 90 mcg/actuation 1 puff inhalation QID PRN 05/23/22 06/03/22 Unknown Rx aerosol inhaler SHORTNESS OF BREATH/WHEEZING #6.7 grams dexamethasone 6 mg tablet 6 mg PO DAILY #6 tabs 05/23/22 06/03/22 Unknown Rx Allergies Allergy/AdvReac Type Severity Reaction Status Date / Time penicillin G Allergy Mild ADR/ALGY-Pa Verified 12/13/21 15:04 lpitations ceftriaxone [From Rocephin] Allergy Unknown Unknown Verified 12/13/21 15:04 doxycycline Allergy Unknown Unknown Verified 12/13/21 15:04 erythromycin base Allergy Unknown Unknown Verified 12/13/21 15:04 gentamicin Allergy Unknown Unknown Verified 12/13/21 15:04 ketoconazole Allergy Unknown Unknown Verified 12/13/21 15:04 sulfamethoxazole Allergy Unknown Unknown Verified 12/13/21 15:04 [From Bactrim] trimethoprim [From Bactrim] Allergy Unknown Unknown Verified 12/13/21 15:04 Current Medications Generic Name Dose Route Start Last Admin Trade Name Freq PRN Reason Stop Dose Admin Acetaminophen 650 mg 06/03/22 17:18 06/04/22 20:52 Acetaminophen 325 Mg Tablet PO 650 mg Q6H PRN Administration Mild/Mod Pain Or Temp >/= 101 Albuterol Sulfate 2.5 mg 06/03/22 20:00 06/05/22 08:04 Albuterol 2.5 Mg/3 Ml Neb INHALATION 2.5 mg Q4H.RESPIRATORY GOMEZ Administration Aspirin 81 mg 06/04/22 08:00 06/04/22 08:42 Aspirin 81 Mg Ec Tablet PO 81 mg DAILY@0800 GOMEZ Administration Atorvastatin Calcium 20 mg 06/04/22 09:00 06/04/22 08:42 Atorvastatin 40 Mg Tablet PO 20 mg DAILY GOMEZ Administration Budesonide 0.5 mg 06/03/22 20:00 06/05/22 08:04 Budesonide 0.5 Mg/2 Ml Neb INHALATION 0.5 mg BID.RESPIRATORY GOMEZ Administration Heparin Sodium/Sodium Chloride 25,000 unit in 500 mls @ 0 mls/hr 06/03/22 16:15 06/04/22 14:30 Heparin Drip IV 6.01 unit/kg/hr .Q0M GOMEZ 9 mls/hr Titration Protocol Per Protocol Norepinephrine Bitartrate 4 mg 254 mls @ 0 mls/hr 06/03/22 21:30 06/05/22 06:52 / Dextrose IV 6 mcg/min .Q0M GOMEZ 22.86 mls/hr Administration Protocol Per Protocol Meropenem 1,000 mg/ Sodium 50 mls @ 100 mls/hr 06/04/22 21:00 06/04/22 21:22 Chloride IV Infused Q12H GOMEZ Infusion Ipratropium [place] 0.5 mg 06/03/22 20:00 06/05/22 08:04 Ipratropium 0.5 Mg/2.5 Ml Neb INHALATION 0.5 mg Q4H.RESPIRATORY GOMEZ Administration Pantoprazole Sodium 40 mg 06/04/22 14:30 06/05/22 01:58 Pantoprazole 40 Mg Sdv IVP 40 mg Q12H GOMEZ Administration Sucralfate 1 gm 06/04/22 14:30 06/05/22 01:57 Sucralfate 1 Gm Tablet PO 1 gm Q12H GOMEZ Administration PFSH Acute PFSH: Medical History Asthma Carotid stenosis Chronic kidney disease (CKD) DVT (deep venous thrombosis) Essential (primary) hypertension GERD (gastroesophageal reflux disease) History of placement of stent in LAD coronary artery History of placement of stent in LAD coronary artery Plantar fasciitis Surgical History History of heart artery stent Family History Other Dementia Hypertension Denies family history of Diabetes CAD (coronary artery disease) Clotting disorder Hyperlipidemia Psychiatric illness Chronic kidney disease (CKD) Suicide Anesthesia complication Bleeding disorder Family history of premature coronary artery disease Lung disease Cancer Stroke Social History Smoking and tobacco status: never smoked Alcohol intake: current Alcohol intake frequency: holidays/special occasions only Marital status: Single Current occupational status: retired Vitals/I&O/Wt Last Vital Signs Temp 98.4 F 06/05/22 00:49 Pulse 61 06/05/22 08:19 Resp 16 06/05/22 08:04 BP 95/46 06/05/22 06:30 Pulse Ox 94 06/05/22 08:04 O2 Del Method 06/05/22 08:04 O2 Flow Rate 1 06/04/22 08:09 06/04/22 06/05/22 06/05/22 22:59 06:59 14:59 Intake Total 1574.198 / 1972.792 428.374 / 2401.166 Output Total 1900 / 1900 800 / 2700 Balance -325.802 / 72.792 -371.626 / -298.834 Weight last 48 hrs Weight 181 lb 1.6 oz Weight 181 lb Weight 181 lb Weight 165 lb Physical Exam Narrative: GENERAL: Patient is alert, awake and oriented x3. [] NECK: No jugular vein distension. [] HEENT: No cyanosis. No icterus. No pallor. [] HEART: Regular S1 and S2. No murmur, rub or gallop. [] LUNGS: Clear to auscultate bilaterally. [] ABDOMEN: Soft CENTRAL NERVOUS SYSTEM: Grossly nonfocal. [] EXTREMITIES: Lower extremities with no edema Urinary Catheter Management: Valdez: Cath Placed During This Visit: yes Reason for Continuing Indwelling Catheter: Accurate Measurement of Urinary Output in Critically Ill Patients Urinary Catheter Date of Insertion: 06/03/22 Data 06/05/22 04:03 06/05/22 00:59 Micro: Microbiology 06/04/22 20:40 Occult Blood (FIT) - Final Stool Routine Collection 06/03/22 19:45 Blood Culture - Preliminary Blood NEGATIVE TO DATE 06/03/22 16:44 Blood Culture - Preliminary Blood NEGATIVE TO DATE A&P Assessment and plan (1) Acute anemia: (2) Bilateral pulmonary embolism: (3) Syncope: (4) Coronary artery disease: Plan Given patient's bilateral pulmonary emboli and inability to anticoagulate secondary to GI bleed, interventional cardiology has been consulted to place IVC filter. In current setting it is appropriate to proceed with it. Risks and benefits of the procedure have been discussed with the patient. She understands the risks and benefits and wants to proceed. In future, once GI bleed is controlled and patient can receive anticoagulation, filter can be retreived. Keep her n.p.o. Thank you for involving us with care of this patient. We will continue to follow. Please call with questions. Consult Attestations Medical Necessity Statement: Care expected to cross 2 midnights. Coding Level of Care Code [facility] Diagnoses Acute anemia D64.9 Bilateral pulmonary embolism I26.99 Syncope R55 Coronary artery disease I25.10
[2022-06-05] MEDS: aspirin 81 mg EC Tablet PO (08:41)
[2022-06-05] MEDS: atorvastatin 40 mg Tablet 20 MG PO (08:41)
[2022-06-05] MEDS: hydrocortisone 100 mg/2 mL SDV IVP (08:42)
[2022-06-05] MEDS: vancomycin 1,000 MG in sodium chloride 0.9% 250 ML 250 MG IV (08:42)
[2022-06-05] MEDS: meropenem 1,000 MG in sodium chloride 0.9% (plus) 50 ML 100 MG IV ×2 (08:44→20:10)
--- NOTE | 2022-06-05 08:54 | XACV_ITS ---
Exam Room: [facility] Ht: 165 cm Wt: 82 kg BSA: 1.97 m2 Gender: Female : 1950 Exam Priority: Routine Procedure(s): Procedure Description: Diagnostic procedure Procedure Description: Peripheral vascular Intervention Procedure Description: PV IVC Filter Placement Diagnostic Cath Status: Elective Abdominal Interventional Findings INDICATION: 72 year old woman who has been found to have bilateral pulmonary emboli and inability can not be anticoagulated because of GI bleeding. Interventional cardiology has been consulted to place IVC filter. In current setting it is appropriate to proceed with it. PROCEDURE DETAIL:Using micropuncture kit, we obtained access in right common femoral vein. 6 Salvadorean sheath was introduced. We used a pigtail catheter to obtain an IVC venogram and identify renal veins. Following this Cook celect filter was deployed under fluoroscopy. Sheath was removed and pressure held to obtain hemostasis. Patient left the Counter Intelligence Technician in stable condition. Conclusions Successful placement of IVC fliter. Recommendations GI bleed workup per primary team. If reversible cause is found and patient can be started on anticoagulation in future, we will proceed with IVC retrieval. Outpatient cardiology follow up in 4 weeks. Clinical Evaluation EBL: 5mL-10mL Procedural Details Procedure Consent Obtained. Admit Source: In Patient. Pre-Procedure Time Out. Identified patient by full name and date of as verbalized by the patient/guarantor. Does the consent match the physician's order: Yes. Accurate & Complete Informed Consent: Yes. Inpatient/Outpatient History & Physical on Chart: Yes. If H&P is completed, is and addenduem needed: No; If yes, is the addendum complete: N/A. Visualize and Verify Site with Patient/Guarantor: N/A. Relevant Radiology Images available: Yes. The risks, benefits, and alternatives of sedation and/or procedure were discussed by physician. The patient agrees to continue. Procedure started. Correct patient, site and procedure confirmed by cath team. PERRLA. Strong, equal hand plate maker bilaterally. Lungs clear x 5 lobes. IV Site on Arrival: 20 gauge in the left anticubital. Pre Procedural Pulses: bilateral posterior tibial was 1+. Oxygen started at 2liters/min via nasal canula. bilateral groins was prepped with chloroprep then draped in the usual sterile fashion. Physician notified. Baseline sample Acquired. HR: 92 BPM. Physician arrived. Physician scrubbed in. Immediate Pre-Procedure Time Out. Correct Patient: Yes; Correct Procedure: Yes; Correct Site: Yes; Correct Patient Position: Yes; Correct Supplies: Yes; Dried Flammable Prep: Yes; Blood Products Available: N/A;. Lidocaine 1% infiltrated to the right groin. Venous access obtained with a micropuncture set. A 5 korean Angled Pig catheter in over wire. Venogram gram performed in AP @ 10 mL/second for a total of 30 mL. Pigtail catheter pulled down lower into the IVC. Venogram performed in AP @ 10 mL/second for a total of 30 mL. Catheter removed over the standard wire. 6F sheath exchanged for 7Fr IVC filter Palmer Hargreaves. IVC Filter deployed. Lot # [id number] Exp date 07/07/2024. IVF Filter system removed. A Manual Compression was successful obtaining hemostatsis at the Right Femoral vein insertion site. Counter Intelligence Technician Indications: Bilateral pulmmonary emboism, gi bleed. Post Procedure: Pulses reassessed and unchanged. PERRLA. Strong, equal hand plate maker bilaterally. No VTE prophylaxis required. Medication's Wasted: Heparin = 1000 units. Medication's Wasted: Other = 75 mcg Fentanyl. Complications: none. Estimated blood loss: 5mL-10mL. Responsiveness - Normal response to verbal stimuli; alert and oriented, PERRLA. Airway - Unaffected, no intervention required; spontaneous ventilation. Circulation: W/N/L, pulses unchanged. Nausea/Vomiting: No. Procedure completed. Patient transferred by bed to ICU. Vital chart was stopped. Access Site Site: Right Femoral vein Sheath Size: 6 Fr Hemostasis Method: Manual Compression Hemostasis Success: Successful Procedure Medications Start: 9:12 AM Stop: 9:12 AM Medication: Versed Amount: 1 mg Route: I.V. Start: 9:14 AM Stop: 9:14 AM Medication: Fentanyl Amount: 25 mcg Route: I.V. Start: 9:22 AM Stop: 9:22 AM Medication: Versed Amount: 1 mg Route: I.V. I, the attending physician, have reviewed and verified all procedure medications. Yes, all medications given per verbal order History/Risk Factors Hypertension: Yes Dyslipidemia: No Peripheral Arterial Disease (PAD): No Myocardial Infarction (DE): Yes Obesity: No Prior Interventions PCI: Yes CABG: No Valve Surgery: No Report Signatures Finalized by Rasta Akins MD on 06/07/2022 02:50 PM
--- NOTE | 2022-06-05 09:10 | W.PM.OPSUD ---
Surgery/Procedure H&P Update DATE OF PROCEDURE: June 05, 2022 DATE H&P PERFORMED: 06/05/22 H&P UPDATE INFORMATION: I have reviewed H&P completed within last 30 days, I have examined patient prior to procedure and No changes to prior documentation PREOP DIAGNOSIS: Bilateral pulmonary emboli/GI bleed/ IVC filter placement PRIMARY INDICATION FOR PROCEDURE: Bilateral pulmonary emboli/GI bleed/ IVC filter placement PLANNED PROCEDURE: IVC filter placement PATIENT REASSESSED PRIOR TO SEDATION, WITH NO CHANGE NOTED: Yes PHYSICAL EXAM: alert, oriented x 3, clear to auscultation bilaterally and regular rate & rhythm AIRWAY EVAL/ANESTHESIA PLAN: normal airway, ASA III, Local Anesthesia, Risks, benefits & alternatives of sedation and/or procedure discussed and Patient agrees to continue as planned ADDITIONAL INFORMATION: Moderate sedation
--- NOTE | 2022-06-05 10:31 | PC.CHAP ---
Pastoral Care Encounter/Spiritual Assessment Type of Contact [] Declined inspector experimental assembly visit [] Patient/Family/Request visit [] Outpatient visit [] Follow-up visit [] Physician referral [] Code/Alert [x] Routine visit [] Staff referral [] Actively dying [] Patient sleeping [] Family support [] [x] Out of room [] Palliative care [] [] Receiving care in room [] Pre-surgical visit [] Trauma [] Long length of stay [x] ICU visit [x] Other: label drier Relational/Emotional Strength [] Patient feels connected with others/family/visitors/staff [] Distress [] Loneliness/isolation [] Abandonment Spirituality of Patient [] Person of Sarah [] Attends Episcopalian of their Sarah [] Believes in Prayer [] Reads Bible or Sabianist materials [] There are Spiritual issues to be addressed Colorer Machine Interventions [x] Prayer [] Active listening [] Non-anxious presence [] Spiritual/emotional support [] Crisis/trauma care [] Spiritual counseling [] Bereavement support [] Provided bereavement packet [] Provided Bible/devotional materials [] Provided toy/stuffed animal, coloring book to patient or family member [] Provided Communion [] Anointing/[place] [] Salvation [x] Completed spiritual assessment [] Other: Impact on Illness or Injury [] Angry [] Fearful [] Anxious [] Often cries [] Exhaustion [] Unable to work [] Unable to attend rastafari [] Unable to walk/stand [] Unable to read [] Unable to drive [] Unable to eat/drink [] Unable to sleep [] Unable to be with family [] Patient intubated [] Other: Summary Time spent with patient
--- NOTE | 2022-06-05 12:30 | P.PCN_ITS ---
Procedure Note: Date of procedure: 06/05/22 Pre-procedure diagnosis: Bilateral pulmonary emboli/ GI bleed/ IVC filter placement Post-procedure diagnosis: same Procedure: Using micropuncture kit, we obtained access in right common femoral vein. 6 Hebrew sheath was introduced. We used a pigtail catheter to obtain an IVC venogram and identify renal veins. Following this Cook celect filter was deployed under fluoroscopy. Sheath was removed and pressure held to obtain hemostasis. Patient left the Fruit Express Agent in stable condition Op report anesthesia: Other (Moderate sedation) Estimated blood loss (mL): 5 Complications: None Condition: stable Disposition: ICU Coding Level of Care Code Acute Code for [facility]
--- NOTE | 2022-06-05 12:37 | P.PN_ITS ---
Subjective Subjective: patient was seen this morning, she had episodes of bloody stool yesterday, with hgb down to 8, heparin drip held, remains hypotensive on 6 of levophed, she feels weeks, but feels better when she came in, is on room air, has remained bed bound, i had an extensive discussion with patient she has brina oped a gi bleed as her hgb has dropped 4 point since heparin drip was started, she has become persitantly hypotneisve requiring pressors, hemmocult postive stools, all indicating hemorhagic shock, with GI bleed. Unfortunatly she cannot tolerate blood thinner currently, but performing and egd and colonoscopy with anethesia with current bilateral pe and pna, carries significant morbidity and mortality. BUt certainly can be done if urgently required. THus for now i have discussed with her placing and IVC filter. I discussed that and ivc filter will not prevent new dvt from developing, but rather prevent embolization. Given her history i am highly suspicious she embolized getting her pe, although her venous dvt us was negative. DIscussed risk and benefit, she voiced understanding, agreed to proceed, maday consult with cardiology. WIll plan on egd and colonscopy in a month when stable from pe Vitals/I&O/Wt Last Vital Signs Temp 98.4 F 06/05/22 11:24 Pulse 69 06/05/22 11:38 Resp 16 06/05/22 11:28 BP 119/59 06/05/22 11:24 Pulse Ox 92 06/05/22 11:28 O2 Del Method 06/05/22 11:28 O2 Flow Rate 1 06/04/22 08:09 06/04/22 06/05/22 06/05/22 22:59 06:59 14:59 Intake Total 1574.198 / 1972.792 428.374 / 2401.166 59.436 / 59.436 Output Total 1900 / 1900 800 / 2700 Balance -325.802 / 72.792 -371.626 / -298.834 59.436 / 59.436 Weight last 48 hrs Weight 82.146 kg Weight 82.1 kg Weight 82.1 kg Weight 74.843 kg Physical Exam Const: COMMON NORMALS: no acute distress and patient oriented x3 Resp: COMMON NORMALS: normal respiratory effort, No retractions, No use of accessory muscles and clear to auscultation bilaterally AUSCULTATION: clear to auscultation bilaterally Cardio: COMMON NORMALS: regular rate, regular rhythm, S1 normal heart sound present and S2 normal heart sound present RATE: regular rate RHYTHM: regular rhythm HEART SOUNDS: S1 normal heart sound present and S2 normal heart sound present GI: COMMON NORMALS: Normal to inspection, nondistended, normoactive bowel sounds present and non-tender Extremity: COMMON NORMALS: no pedal edema Neuro: COMMON NORMALS: patient oriented x3 Psych: COMMON NORMALS: mental status grossly normal Urinary Catheter Management: [place]: Cath Placed During This Visit: yes Reason for Continuing Indwelling Catheter: Accurate Measurement of Urinary Output in Critically Ill Patients Urinary Catheter Date of Insertion: 06/03/22 Data 06/05/22 04:03 06/05/22 00:59 Micro: Microbiology 06/03/22 16:48 Urine Culture - Final Urine,Clean Catch 06/04/22 20:40 Occult Blood (FIT) - Final Stool Routine Collection 06/03/22 19:45 Blood Culture - Preliminary Blood NEGATIVE TO DATE 06/03/22 16:44 Blood Culture - Preliminary Blood NEGATIVE TO DATE A&P Assessment and plan (1) Syncope and collapse: (2) Bilateral pulmonary embolism: (3) Chest pain: (4) Acute alteration in mental status: (5) Acute respiratory failure with hypoxia: (6) Enterocolitis: (7) Bilateral pneumonia: (8) Septic shock: (9) Lactic acidosis: (10) NSTEMI (non-ST elevated myocardial infarction): (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: (12) Goals of care, counseling/discussion: (13) Acute anemia: (14) Acute kidney injury: (15) Hypomagnesemia: Plan acute GI bleed, iron defeciency anemia, hemmorhagic shock -stop heparin drip -transfuse 1 unit prbc -wean of pressors -1 dose IV venofer -protonix and carafate -will need an egd and colonoscopy at some point Acute hypoxic respiratory failure -Multifactorial -From bilateral pneumonia -Bilateral pulmonary embolism Plan -Admit to ICU -Oxygen therapy -Monitor respiratory status closely -Full code -Heparin for DVT prophylaxis Syncope and collapse -From history it sounds like true syncopal and collapse episode -Bilateral pulm embolisms, but no evidence of bilateral occlusive DVT, or radiographic evidence of RV strain -Does have NSTEMI -Symptoms are quite concerning for possible malignant arrhythmia -Monitor respiratory status closely, monitor telemetry, monitor troponin Bilateral pneumonia -Blood cultures -Sputum cultures -Urine bacterial antigens -COVID-19 PCR -stop Vancomycin, coutinue meropenem Bilateral pulmonary embolism -Cardiac echocardiogram, ejection fraction 55 to 60%, diastolic function normal -Venous ultrasound negative for DVT -cannot tolerate anticoag due to anemia, gi bleed, shock -place ivc filter Septic shock/hemmorhagic -6 the Levophed, wean as tolerated -Due to hypotension, tachycardia, tachypnea, hypothermia, lactic acidosis -From bilateral pneumonia -From pulmonary embolism -gi bleed/anemia -Responded to fluid boluses Lactic acidosis -Pulm bilateral pulmonary embolism and bilateral pneumonia -Monitor Chest pain with NSTEMI, likely from pneumonia, pulm embolism with history of CAD -heparin drip, -aspirin, statin -serial EKGs, serial troponins, telemetry monitoring Altered mental status -Currently alert oriented x3 Abdominal vascular with arthrosclerosis 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 -No guarding, no rebound, no rigidity, monitor Enterocolitis Prominent fluid throughout the colon along as well as in the small bowel suggestive of an enterocolitis. Hypomagnesemia, replace plan for today, stop heparin, ivc filter, transfuse prbc, wean pressors, pt ot Attestations Medical Necessity Statement*: patient requies hospitalization for hemorhagic shock, gi bleed, iron defeciency, PE, PNA, SHOCK Time Spent in Patient Care: Greater than 35 minutes Critical Care Time: critical care time spent 35 min Critical Care Time (min): 35 Coding Level of Care Code Acute Code for Chg Fwd Diagnoses Syncope and collapse R55 Bilateral pulmonary embolism I26.99 Chest pain R07.9 Acute alteration in mental status R41.82 Acute respiratory failure with hypoxia J96.01 Enterocolitis K52.9 Bilateral pneumonia J18.9 Septic shock A41.9; R65.21 Lactic acidosis E87.20 NSTEMI (non-ST elevated myocardial infarction) I21.4 Atherosclerosis of visceral artery of abdomen I70.8 Goals of care, counseling/discussion Z71.89 Acute anemia D64.9 Acute kidney injury N17.9 Hypomagnesemia E83.42
[2022-06-05] MEDS: sodium chloride 0.9% (100 ml) 100 ML (14:57)
--- NOTE | 2022-06-05 22:15 | PC.NURSE ---
Fluid Bolus Patient's blood pressure trending down with a MAP ranging from 61-66. Cheetah assessment performed with a result of 25.6% SVI, patient is fluid responsive. Dr. Lal notified and order received for one 500 ml NS bolus. See MAR for administration.
[2022-06-05] MEDS: sodium chloride 0.9% 500 ML 999 ML IV (23:01)
[2022-06-06] VITALS (30 sets, daily range): BP systolic 81–146; BP diastolic 42–73; PULSE 59–80; RESP 16–17; TEMP 36.6–36.8; O2SAT 92–100; BMI 29.6
[2022-06-06] MEDS: pantoprazole 40 mg SDV IVP (02:14)
[2022-06-06] MEDS: sucralfate 1 gm Tablet PO (02:14)
[2022-06-06 03:10] LABS: Basophils % 0.4 %; Eosinophils # 0.1 10^3/uL (0.0-0.8); Eosinophils % 1.2 %; Hematocrit 28.3 % (37.0-47.0); Hemoglobin 8.5 g/dL (11.5-15.3); Lymphocytes # 1.6 10^3/uL (0.8-4.8); Lymphocytes % 20.2 %; Mean Corpuscular Hemoglobin 28.1 pg (28.0-34.0); Mean Corpuscular Volume 93.4 fl (81-99); Mean Platelet Volume 11.8 fL (7.4-10.4); Monocytes # 0.6 10^3/uL (0.2-0.9); Monocytes % 7.4 %; Neutrophils # 5.49 10^3/uL (1.8-7.7); Neutrophils % 70.4 %; Nucleated Red Blood Cells % 0 %; Platelet Count 139 10^3/cmm (130-400); Red Blood Count 3.03 10^6/uL (4.1-5.3); Red Cell Distribution Width 16.4 % (12.1-15.1); White Blood Count 7.8 10^3/uL (4.0-10.0)
[2022-06-06 03:19] LABS: Alanine Aminotransferase 13 U/L (0-33); Albumin Level 2.4 g/dL (3.5-5.2); Alkaline Phosphatase 107 U/L (35-105); Anion Gap 10.3 (5-19); Aspartate Amino Transferase 19 U/L (0-32); Blood Urea Nitrogen 11 mg/dL (8-23); C Reactive Protein 49.4 mg/L (0.0-4.9); Calcium 7.8 mg/dL (8.5-10.5); Carbon Dioxide 23 mmol/L (22-29); Chloride 109 mmol/L (98-107); Globulin 2.8 g/dL (1.3-4.6); Glucose 95 mg/dL (65-115); Magnesium 1.7 mg/dL (1.7-2.3); Osmolality Calculated 287 mOsm/kg (285-295); Potassium 3.3 mmol/L (3.5-5.1); Sodium 139 mmol/L (136-145); Total Bilirubin 0.4 mg/dL (0.15-1.2); Total Protein 5.2 g/dL (6.6-8.7)
[2022-06-06 03:28] LABS: NT Pro B Type Natriuretic Pept 1251 pg/mL (0-125)
[2022-06-06] MEDS: aspirin 81 mg EC Tablet PO (07:14)
[2022-06-06] MEDS: potassium chloride ER 20 mEq Tablet 40 MEQ PO (07:15)
[2022-06-06] MEDS: ipratropium 0.5 mg/2.5 mL Neb INHALATION (07:37)
[2022-06-06] MEDS: albuterol 2.5 mg/3 mL Neb INHALATION (07:37)
[2022-06-06] MEDS: budesonide 0.5 mg/2 mL Neb INHALATION (07:37)
--- NOTE | 2022-06-06 09:27 | P.DS_ITS ---
Discharge Providers Date of Admission: 06/03/22 16:16 Date of Discharge: June 06, 2022 Attending Provider at Admission: Bautista Valentine MD Attending Provider at Discharge: Bautista Valentine MD Primary Care Provider: William Marie DO Diagnoses at Discharge Discharge Diagnosis (1) Syncope and collapse: Status: Acute (2) Bilateral pulmonary embolism: Status: Acute (3) Chest pain: Status: Acute (4) Acute alteration in mental status: Status: Acute (5) Acute respiratory failure with hypoxia: Status: Acute (6) Enterocolitis: Status: Acute (7) Bilateral pneumonia: Status: Acute (8) Septic shock: Status: Acute (9) Lactic acidosis: Status: Acute (10) NSTEMI (non-ST elevated myocardial infarction): Status: Acute (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: Status: Acute (12) Goals of care, counseling/discussion: Status: Acute (13) Acute anemia: Status: Acute (14) Acute kidney injury: Status: Acute (15) Hypomagnesemia: Status: Acute Reason for Visit Reason for Visit: SOB Hospital Course Hospital Course john Sanches is a 72 year old female with a past medical history of status post LAD stenting, history of dyslipidemia, history of DVT in the past, carotid artery stenosis, CKD, asthma, hypertension, GERD, who presents [facility] for chest pain, syncopal episode.? Patient tells me that she has been sick with pneumonia for the last few weeks, was diagnosed with a pneumonia, sent home on antibiotics from the emergency room.? She tells me that her sister has also been sick was also diagnosed with pneumonia but was admitted to the hospital she spent a few days in the ICU, and eventually was discharged home.? Both of them he tells me were tested for fluid COVID and were negative.? She tells me that her sister is now home.? However she continues to have some shortness of breath, nonproductive cough, low-grade fevers.? She tells me that this afternoon, when she was going to the bathroom, sudden onset severe substernal chest pain, no diaphoresis, no nausea, no vomiting, no palpitations, and then her memory becomes fuzzy, the next thing she remembers is being on the floor, and her son had called EMS.? In the emergency room she was found to be hypotensive, tachycardic, hypoxic, her mentation was disoriented.? She was given oxygen, fluid boluses, had work-up done.? Significant for bilateral pulmonary embolism, lactic acidosis, hypoxia chronic 5 L, hypotension.? Currently her blood pressures are 102/71, pulse 112 sinus tachycardia respiratory rate 20, temperature 96.6 she is on 5 L saturating 90%, alert and awake, no evidence of respiratory distress no is in trigger costal retractions no nasal flaring, she is not short of breath with sentences.? She feels significantly better, she is alert oriented x3.? Denies any calf pain, no calf swelling, recent surgeries, hemoptysis Patient was admitted to [facility] for bilateral lower lobe pneumonia, cultures so far have been unremarkable, treated with broad-spectrum antibiotic therapy, COVID PCR negative, overall clinically improved, to room air, discharged with Levaquin therapy for 5 remaining days Patient was admitted to [facility] for bilateral pulmonary embolism, no evidence of right heart strain on echocardiogram EF 55 to 60%, venous ultra sound negative for DVT, managed on a heparin drip for 48 hours, developed acute anemia with bloody stools, hemodynamic compromise concerning for GI bleeding hemorrhagic shock. Anticoagulation was discontinued received 1 unit PRBC after discussing the risks and benefits she had a IVC filter placed. Will be discharged with IVC filter, close follow-up with primary care to recheck hemoglobin in 1 week and follow-up with gynecology for hypercoagulability work- up Patient developed acute anemia, hemorrhagic shock, bloody stools, GI bleed, evidence of iron deficiency anemia during hospitalization. Likely secondary to anticoagulation, however there is evidence of chronic iron deficiency anemia. She required 1 unit PRBC, IV Venofer here, IV hydration, initially required pressor therapy, off for over 48 hours. Patient will be discharged with iron replacement therapy, instructions to come back to the hospital if she were to develop bloody or black stools, have her primary care provider recheck her hemoglobin in a few days, follow-up with general surgery in a month for consideration of EGD and colonoscopy. In addition I have discharged on Protonix, Carafate. Patient also had evidence of syncope and collapse, on initial presentation, likely secondary to bilateral pulmonary embolism, NSTEMI, echocardiogram normal EF, no recurrent episodes of syncope, no significant arrhythmia events. Follow- up with primary care provider as outpatient. Patient had septic and hemorrhagic shock requiring pressor therapy during hospitalization, overall resolved, however blood pressures are a bit soft at discharge, lisinopril has been held on discharge Found to have chest pain with NSTEMI, continue aspirin, statin, follow-up with cardiology as outpatient for consideration of stress testing but likely secondary pulmonary embolism. Patient was found to have abdominal vascular arthrosclerosis, follow-up with primary care provider as outpatient Physical Exam Const: COMMON NORMALS: no acute distress and patient oriented x3 Neck/C-Spine: COMMON NORMALS: no JVD Resp: COMMON NORMALS: normal respiratory effort, No retractions, No use of accessory muscles and clear to auscultation bilaterally AUSCULTATION: clear to auscultation bilaterally Cardio: COMMON NORMALS: no JVD, regular rate, regular rhythm, S1 normal heart sound present and S2 normal heart sound present RATE: regular rate RHYTHM: regular rhythm HEART SOUNDS: S1 normal heart sound present and S2 normal heart sound present GI: COMMON NORMALS: Normal to inspection, nondistended, normoactive bowel sounds present and non-tender Extremity: COMMON NORMALS: no pedal edema Neuro: COMMON NORMALS: patient oriented x3 Psych: COMMON NORMALS: mental status grossly normal Urinary Catheter Management: Valdez: Cath Placed During This Visit: yes Reason for Continuing Indwelling Catheter: Accurate Measurement of Urinary Output in Critically Ill Patients Urinary Catheter Date of Insertion: 06/03/22 Discharge Data Studies Completed and Pending Completed Studies During Hospitalization Category Date Time Status CT head wo con* [id number] Stat Cat Scan 06/03/22 14:[address] abdomen pelvis [CT angio chest w abd pel w Cat Scan 06/03/22 14:11 Completed con] Stat XR chest 1V portable [id number] Stat Exams 06/03/22 13:44 [place] [id number] Routine Ultrasound 06/03/22 17:18 Completed CV. echo complete* [id number] Routine Ultrasound 06/04/22 06:00 Completed Pending at discharge Category Date Time Status SYSTEMS TEST ANALYST request for service Routine Exams 06/05/22 08:54 Taken Blood Culture Stat Lab 06/03/22 19:45 Results C Reactive Protein AM LABS Lab 06/07/22 04:00 Ordered Complete Blood Count w/Auto AM LABS Lab 06/07/22 04:00 Ordered Comprehensive Metabolic Panel AM LABS Lab 06/07/22 04:00 Ordered Hemoglobin and Hematocrit Timed Lab 06/06/22 10:00 Ordered Magnesium AM LABS Lab 06/07/22 04:00 Ordered NT Pro B Type Natriuretic Pept QAM Lab 06/07/22 06:00 Ordered Phosphorus AM LABS Lab 06/07/22 04:00 Ordered Radiology Impressions Chest X-Ray 06/03/22 13:44 IMPRESSION: Bibasilar left greater than right atelectasis versus infiltrate. Chest/Abdomen/Pelvis CT 06/03/22 14:11 IMPRESSION: 1. Bilateral pulmonary emboli, largely on the right side, for instance on series 9, image 308. 2. Negative for right heart strain, RV to LV ratio equals approximately 0.9. 3. Mild patchy bilateral airspace infiltrates. 4. Abdominal aorta somewhat prominent 3.4 cm. 5. Coronary artery atherosclerotic calcifications. IMPRESSION: 1. Prominent fluid throughout the colon along as well as in the small bowel suggestive of an enterocolitis. 2. Valdez catheter in the urinary bladder. 3. L4 vertebral body somewhat trabeculated appearance suggestive of an underlying hemangioma. 4. Small hiatal hernia. 5. Cholecystectomy. 6. 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 7. Proximal renal artery ostia bilateral atherosclerotic calcifications with suspected at least 70% luminal narrowing with contrast seen distally. THIS REPORT CONTAINS FINDINGS THAT MAY BE CRITICAL TO PATIENT CARE. The findings were verbally communicated via telephone conference with Jake Florence at 4:07 PM ASSISTANT SPEECH LANGUAGE PATHOLOGIST on 06/03/2022. The findings were acknowledged and understood. ADDENDUM: 06/03/22 1615 Under chest portion of the exam findings and impression should read ascending thoracic aorta somewhat prominent at 3.[address] 06/03/22 14:11 IMPRESSION: No acute intracranial abnormality. Venous Duplex 06/03/22 17:18 IMPRESSION: No evidence of deep vein thrombosis. Laboratory Results WBC 7.8 10^3/uL (4.0-10.0) 06/06/22 02:35 RBC 3.03 10^6/uL (4.1-5.3) L 06/06/22 02:35 Hgb 8.5 g/dL (11.5-15.3) L 06/06/22 02:35 Hct 28.3 % (37.0-47.0) L 06/06/22 02:35 MCV 93.4 fl (81-99) 06/06/22 02:35 MCH 28.1 pg (28.0-34.0) 06/06/22 02:35 MCHC 30.0 g/dL (30.0-36.0) 06/06/22 02:35 RDW 16.4 % (12.1-15.1) H 06/06/22 02:35 Plt Count 139 10^3/cmm (130-400) 06/06/22 02:35 MPV 11.8 fL (7.4-10.4) H 06/06/22 02:35 Neut % (Auto) 70.4 % 06/06/22 02:35 Lymph % (Auto) 20.2 % 06/06/22 02:35 [place] % (Auto) 7.4 % 06/06/22 02:35 Eos % (Auto) 1.2 % 06/06/22 02:35 Baso % (Auto) 0.4 % 06/06/22 02:35 Reticulocyte % (Auto) 1.9 % (0.5-2.0) 06/04/22 08:14 Neut # (Auto) 5.49 10^3/uL (1.8-7.7) 06/06/22 02:35 Lymph # (Auto) 1.6 10^3/uL (0.8-4.8) 06/06/22 02:35 [place] # (Auto) 0.6 10^3/uL (0.2-0.9) 06/06/22 02:35 Eos # (Auto) 0.1 10^3/uL (0.0-0.8) 06/06/22 02:35 Baso # (Auto) 0.0 10^3/uL (0.0-0.1) 06/06/22 02:35 Nucleated RBC % (auto) 0 % 06/06/22 02:35 Nucleated RBCs # 0.0 /100WBC 06/06/22 02:35 PT 15.80 SECONDS (12.1-14.9) H 06/03/22 16:44 INR 1.22 (0.8-1.2) H 06/03/22 16:44 APTT 47.2 SECONDS (23.9-36.7) H D 06/04/22 20:20 Specimen Type Arterial 06/03/22 13:55 Sample Site Radial, left 06/03/22 13:55 ABG pH 7.44 (7.35-7.45) 06/03/22 13:55 ABG pCO2 29.9 mmHg (35-45) L 06/03/22 13:55 ABG pO2 69.1 mmHg (80.0-100.0) L 06/03/22 13:55 ABG HCO3 20.2 mmol/L (22-26) L 06/03/22 13:55 ABG Base Excess -3.1 mmol/L (-2.0-2.0) L 06/03/22 13:55 Julian Test Pos 06/03/22 13:55 Hematocrit 34.3 % (37-47) L 06/03/22 13:55 O2 Delivery Device Not Reportable 06/03/22 13:55 O2 Liters/Min 7.0 % 06/03/22 13:55 Surface Hydrologist ID Amh 06/03/22 13:55 Blood Gas Notified Time 1630 06/03/22 13:55 Sodium 139 mmol/L (136-145) 06/06/22 02:35 Potassium 3.3 mmol/L (3.5-5.1) L 06/06/22 02:35 Chloride 109 mmol/L (98-107) H 06/06/22 02:35 Carbon Dioxide 23 mmol/L (22-29) 06/06/22 02:35 Anion Gap 10.3 (5-19) 06/06/22 02:35 BUN 11 mg/dL (8-23) 06/06/22 02:35 Creatinine 0.8 mg/dL (0.5-0.9) 06/06/22 02:35 GFR Calculation Not Reportable 06/06/22 02:35 Glucose 95 mg/dL (65-115) 06/06/22 02:35 POC Glucose 132 mg/dL (70-110) H 06/03/22 13:49 Estimat Average Glucose 143 06/03/22 13:58 Hemoglobin A1c 6.6 % (4.0-6.0) H 06/03/22 13:58 Calculated Osmolality 287 mOsm/kg (285-295) 06/06/22 02:35 Lactic Acid 1.0 mmol/L (0.5-2.2) 06/04/22 07:38 Lactic Acid (Sepsis) 3.3 mmol/L (0.5-2.2) H 06/03/22 16:44 Calcium 7.8 mg/dL (8.5-10.5) L 06/06/22 02:35 Phosphorus 2.0 mg/dL (2.5-4.5) L 06/06/22 02:35 Magnesium 1.7 mg/dL (1.7-2.3) 06/06/22 02:35 Iron 36 ug/dL (37-145) L 06/04/22 08:14 Ferritin 425 ng/mL (15-150) H 06/04/22 08:14 Total Bilirubin 0.4 mg/dL (0.15-1.2) 06/06/22 02:35 AST 19 U/L (0-32) 06/06/22 02:35 ALT 13 U/L (0-33) 06/06/22 02:35 Alkaline Phosphatase 107 U/L (35-105) H 06/06/22 02:35 Troponin T Baseline 35 ng/L (0-10) H 06/03/22 13:58 Troponin T 120 Minute 32.73 ng/L (0-10) H 06/03/22 16:44 Delta Troponin T -2.27 ABS# (0-10) L 06/03/22 16:44 Troponin T Hi Sens 6Hr 35.77 ng/L (0-10) H 06/03/22 19:45 Troponin T Hi Sens 6Hr Delta 0.77 ng/L (0-12) 06/03/22 19:45 C-Reactive Protein 49.4 mg/L (0.0-4.9) H 06/06/22 02:35 NT-Pro-B Natriuret Pep 1251 pg/mL (0-125) H 06/06/22 02:35 Total Protein 5.2 g/dL (6.6-8.7) L 06/06/22 02:35 Albumin 2.4 g/dL (3.5-5.2) L 06/06/22 02:35 Globulin 2.8 g/dL (1.3-4.6) 06/06/22 02:35 Procalcitonin 0.08 ng/mL (0-0.5) 06/03/22 13:58 TSH 8.13 uIU/mL (0.27-4.20) H 06/03/22 13:58 Free T4 1.33 ng/dL (0.82-1.77) 06/03/22 16:44 Free T3 2.5 PG/ML (2.0-4.4) 06/03/22 13:58 Random Cortisol 14.27 ug/dL (2.47-19.5) 06/04/22 08:14 Urine Color Straw (Yellow) 06/03/22 16:48 Urine Appearance Sl hazy (CLEAR) A 06/03/22 16:48 Urine pH 8 (5-7) H 06/03/22 16:48 Ur Specific [place] 1.005 (1.005-1.030) 06/03/22 16:48 Urine Protein 1+ (Negative) H 06/03/22 16:48 Urine Glucose (UA) 1+ (Normal) H 06/03/22 16:48 Urine Ketones Negative (Negative) 06/03/22 16:48 Urine Blood 3+ (Negative) H 06/03/22 16:48 Urine Nitrate Negative (Negative) 06/03/22 16:48 Urine Bilirubin Neg (Negative) 06/03/22 16:48 Prot Sulfosalicylic Acd Positive (Negative) 06/03/22 16:48 Urine Urobilinogen Norm mg/dL (Negative) 06/03/22 16:48 Ur Leukocyte Esterase Negative (Negative) 06/03/22 16:48 Urine RBC 15-25 /hpf (0-2) H 06/03/22 16:48 Urine WBC 0-4 /hpf (0-5) H 06/03/22 16:48 Ur Squamous Epith Cells 5-10 /hpf (0-5) H 06/03/22 16:48 Amorphous Sediment 1+ /hpf 06/03/22 16:48 Urine Bacteria 1+ /hpf (NONE) H 06/03/22 16:48 Hyaline Casts 0-4 /lpf H 06/03/22 16:48 Urine Mucus Trace /hpf 06/03/22 16:48 Salicylates < 0.3 mg/dL (3-10) L 06/03/22 13:58 Urine Opiates Screen Negative ng/mL (Negative) 06/04/22 21:40 Acetaminophen < 5.0 ug/mL (10-30) L 06/03/22 13:58 Ur Barbiturates Screen Negative ng/mL (Negative) 06/04/22 21:40 Ur Phencyclidine Scrn Negative ng/mL (Negative) 06/04/22 21:40 Ur Amphetamines Screen Negative ng/mL (Negative) 06/04/22 21:40 U Benzodiazepines Scrn Negative ng/mL (Negative) 06/04/22 21:40 Urine Cocaine Screen Negative ng/mL (Negative) 06/04/22 21:40 U Marijuana (THC) Screen Negative ng/mL (Negative) 06/04/22 21:40 Ethyl Alcohol < 10 mg/dL (0-10) 06/03/22 13:58 Coronavirus 229E (PCR) Not detected (NOT DETECT) 06/03/22 19:45 Influenza Type A Ag negative (Negative) 06/03/22 15:52 Influenza Type B Ag negative (Negative) 06/03/22 15:52 SARS-CoV-2 (PCR) Not detected (NOT DETECT) 06/03/22 19:45 SARS-CoV-2 Ag (Rapid) negative (Negative) 06/03/22 15:52 Blood Type B Positive 06/05/22 08:33 Rho(D) Type Positive 06/05/22 08:33 Antibody Screen Negative 06/05/22 08:33 Crossmatch See Detail 06/05/22 08:33 Vitals Last Vital Signs Temp 98.3 F 06/06/22 04:00 Pulse 80 06/06/22 07:40 Resp 16 06/06/22 07:30 BP 90/73 06/06/22 07:30 Pulse Ox 94 06/06/22 07:30 O2 Del Method 06/06/22 07:30 O2 Flow Rate 1 06/04/22 08:09 Discharge Plan Discharge Patient Disposition: Home Condition: Stable Prescriptions: New levofloxacin 750 mg tablet 750 mg PO DAILY 5 Days Qty: 5 0RF sucralfate 1 gram Tablet 1 g PO Q12H 30 Days Qty: 60 0RF pantoprazole [Protonix] 40 mg tablet,delayed release (DR/EC) 40 mg PO Q12H 30 Days Qty: 60 0RF ferrous sulfate 324 mg (65 mg iron) tablet,delayed release (DR/EC) 324 mg PO BID 30 Days Qty: 60 0RF Continued docusate sodium 100 mg capsule 100 mg PO DAILY loratadine 10 mg tablet 10 mg PO DAILY aspirin [Adult Aspirin Regimen] 81 mg tablet,delayed release (DR/EC) 81 mg PO DAILY@0800 fluticasone propionate [Flonase Allergy Relief] 50 mcg/actuation spray,suspension 1 spray INTRANASAL DAILY@0800 Rx Instructions: administer into each nostril simvastatin 80 mg tablet 40 mg PO BID nitroglycerin [Nitrostat] 0.4 mg tablet, sublingual 0.4 mg SUBLINGUAL Q5M PRN (Reason: CHEST PAINS) Qty: 25 3RF Rx Instructions: do not exceed 3 doses per episode albuterol sulfate 90 mcg/actuation HFA aerosol inhaler 1 puff INHALATION QID PRN (Reason: SHORTNESS OF BREATH/WHEEZING) Qty: 8.5 0RF Changed budesonide-formoterol [Symbicort] 160-4.5 mcg/actuation HFA aerosol inhaler 1 puff INHALATION BID@799,1999 Qty: 10.2 0RF Discontinued pantoprazole 40 mg tablet,delayed release (DR/EC) 40 mg PO BID@799,1999 lisinopril 30 mg tablet 30 mg PO DAILY Qty: 90 3RF dexamethasone 6 mg tablet 6 mg PO DAILY Qty: 6 0RF Discharge Orders: Discharge Order (Routine); Ordered 06/06/22 Ordered By: Bautista Valentine Other Ambulatory Orders: DME: Dean (Order) Location: None Selected Ordered By: Bautista Valentine Referrals: Camden Zaragoza DO [Physician] - 1 month Alexandru Waters MD [Staff Physician] - 2 weeks (fe defeciency anemia, pulmonary embolism) William Marie DO [Primary Care Provider] - 1-3 days Discharge Diet: Cardiac Discharge Activity: Resume usual activity Patient Instructions: Iron Supplements (By mouth), Sucralfate (By mouth), Levofloxacin (By mouth), Pantoprazole (By mouth), Pulmonary Embolism (DC), Gastrointestinal Bleeding (DC), Inferior Vena Cava (IVC) Filter Placement (DC), Opioid Safety Activity Restrictions/Additional Instructions: - If you have recurrent passing out episodes or lightheadedness please go to the emergency room -If you develop bloody or black stools please go to the emergency room -If you have sudden onset shortness of breath chest pain or leg swelling go to the emergency room -Please follow-up with primary care provider in 1 week for recheck hemoglobin -Please follow-up with hematology for iron deficiency anemia -Please follow-up with general surgery for consideration of EGD and colonoscopy in a month -Please take antibiotics as prescribed Discharge Attestations Time Spent in Discharge Care*: greater than 30 min Quality Metrics Clinical Quality Measures [ Venous Thromboembolism { Contraindication to Overlap Therapy: Overlap treatment not indicated; VTE Discharge Education: Education about anticoagulant therapy/Care Notes given;}] Coding Level of Care Code Acute Chg FW DC note Diagnoses Syncope and collapse R55 Bilateral pulmonary embolism I26.99 Chest pain R07.9 Acute alteration in mental status R41.82 Acute respiratory failure with hypoxia J96.01 Enterocolitis K52.9 Bilateral pneumonia J18.9 Septic shock A41.9; R65.21 Lactic acidosis E87.20 NSTEMI (non-ST elevated myocardial infarction) I21.4 Atherosclerosis of visceral artery of abdomen I70.8 Goals of care, counseling/discussion Z71.89 Acute anemia D64.9 Acute kidney injury N17.9 Hypomagnesemia E83.42
--- NOTE | 2022-06-06 09:28 | P.PN_ITS ---
Subjective Subjective: Patient is doing well . no complaints of chest pain. Underwent IVC filter placement yesterday Vitals/I&O/Wt Last Vital Signs Temp 98.3 F 06/06/22 04:00 Pulse 80 06/06/22 07:40 Resp 16 06/06/22 07:30 BP 90/73 06/06/22 07:30 Pulse Ox 94 06/06/22 07:30 O2 Del Method 06/06/22 07:30 O2 Flow Rate 1 06/04/22 08:09 06/05/22 06/06/22 06/06/22 22:59 06:59 14:59 Intake Total 590 / 699.436 550 / 1249.436 Output Total 750 / 750 650 / 1400 Balance -160 / -50.564 -100 / -150.564 Weight last 48 hrs Weight 178 lb 1.6 oz Weight 181 lb 1.6 oz Physical Exam Narrative: GENERAL: Patient is alert, awake and oriented x3. [] NECK: No jugular vein distension. [] HEENT: No cyanosis. No icterus. No pallor. [] HEART: Regular S1 and S2. No murmur, rub or gallop. [] LUNGS: Clear to auscultate bilaterally. [] ABDOMEN: Soft CENTRAL NERVOUS SYSTEM: Grossly nonfocal. [] EXTREMITIES: Lower extremities with no edema Urinary Catheter Management: Valdez: Cath Placed During This Visit: yes Reason for Continuing Indwelling Catheter: Accurate Measurement of Urinary Output in Critically Ill Patients Urinary Catheter Date of Insertion: 06/03/22 Data 06/06/22 02:35 06/06/22 02:35 Micro: Microbiology 06/03/22 16:48 Urine Culture - Final Urine,Clean Catch A&P Assessment and plan (1) Acute anemia: (2) Bilateral pulmonary embolism: (3) Syncope: (4) Coronary artery disease: Plan Patient had successful placement of IVC filter yesterday. Femoral access site is normal. Thank you for involving us with care of this patient. Please call with questions. Attestations Medical Necessity Statement*: Care expected to cross 2 midnights. Coding Level of Care Code Acute Code for [facility] Fwd Diagnoses Acute anemia D64.9 Bilateral pulmonary embolism I26.99 Syncope R55 Coronary artery disease I25.10
[2022-06-06] MEDS: atorvastatin 40 mg Tablet 20 MG PO (09:58)
[2022-06-06] MEDS: meropenem 1,000 MG in sodium chloride 0.9% (plus) 50 ML 100 MG IV (09:58)
[2022-06-06] MEDS: sodium chloride 0.9% 500 ML 999 ML IV (10:00)
--- NOTE | 2022-06-06 10:01 | PC.SOCIAL ---
IMM Update Pg. 2 of IMM updated and reviewed with patient, who verbalized understanding. Copy provided.
[2022-06-06 10:02] LABS: Hemoglobin 9.7 g/dL (11.5-15.3)
[2022-06-06] MEDS: vancomycin 1,000 MG in sodium chloride 0.9% 250 ML 250 MG IV (10:03)
[2022-06-06] MEDS: iron sucrose 200 MG in sodium chloride 0.9% (100 ml) 100 ML 220 MG IV (10:04)
--- NOTE | 2022-06-06 10:40 | PC.CHAP ---
Pastoral Care Encounter/Spiritual Assessment Type of Contact [] Declined cold molding press operator visit [] Patient/Family/Request visit [] Outpatient visit [] Follow-up visit [] Physician referral [] Code/Alert [x] Routine visit [] Staff referral [] Actively dying [] Patient sleeping [] Family support [] [] Out of room [] Palliative care [] [] Receiving care in room [] Pre-surgical visit [] Trauma [] Long length of stay [x] ICU visit [x] Other: setting up in chair.. physical therapy.. possibility of going home Relational/Emotional Strength [] Patient feels connected with others/family/visitors/staff [] Distress [] Loneliness/isolation [] Abandonment Spirituality of Patient [] Person of Sarah [] Attends Rastafari of their Sarah [] Believes in Prayer [] Reads Bible or Holiness materials [] There are Spiritual issues to be addressed Human Resources Technician Interventions [x] Prayer [] Active listening [] Non-anxious presence [] Spiritual/emotional support [] Crisis/trauma care [] Spiritual counseling [] Bereavement support [] Provided bereavement packet [] Provided Bible/devotional materials [] Provided toy/stuffed animal, coloring book to patient or family member [] Provided Communion [] Anointing/[place] [] Salvation [x] Completed spiritual assessment [] Other: Impact on Illness or Injury [] Angry [] Fearful [] Anxious [] Often cries [] Exhaustion [] Unable to work [] Unable to attend orthodox [] Unable to walk/stand [] Unable to read [] Unable to drive [] Unable to eat/drink [] Unable to sleep [] Unable to be with family [] Patient intubated [] Other: Summary Time spent with patient
--- NOTE | 2022-06-06 13:10 | PC.NURSE ---
Discharge instructions given to patient, IV removed, lan removed, no further questions.
--- NOTE | 2022-06-06 13:12 | PC.NURSE ---
Patient and belongings wheeled to private vehicle by this nurse. Patient's son driving. Prescriptions sent to [facility]
--- NOTE | 2022-06-06 13:31 | PC.NURSE ---
Pulmonology appointment ordered by Dr. Valentine. Clinic closed. Patient notified.
== END 2022-06-06 13:20 | disposition home or self-care (01) | DRG 871 ==
LOC: ER 16:15 → ICU 16:25
PROVIDERS: Internal Medicine; Student in an Organized Health Care Education/Training Program; Admitting Provider Family Medicine; Emergency Provider Emergency Medicine; PCP Internal Medicine; Visit Provider Family Medicine
PROC: 06H03DZ Insertion of Intraluminal Device into Inferior Vena Cava, Percutaneous Approach (ICD-10-PCS; principal; 2022-06-05 09:00)
PROC: 06H03DZ Insertion of Intraluminal Device into Inferior Vena Cava, Percutaneous Approach (ICD-10-PCS; CPT 37191; 2022-06-05 09:00)
DX: A41.9 Sepsis, unspecified organism (principal); I21.4 Non-ST elevation (NSTEMI) myocardial infarction; I26.99 Other pulmonary embolism without acute cor pulmonale; R65.21 Severe sepsis with septic shock; J96.01 Acute respiratory failure with hypoxia; J18.9 Pneumonia, unspecified organism; R57.8 Other shock; N17.9 Acute kidney failure, unspecified; K92.1 Melena; K52.9 Noninfective gastroenteritis and colitis, unspecified; D50.9 Iron deficiency anemia, unspecified; E83.42 Hypomagnesemia; I25.10 Atherosclerotic heart disease of native coronary artery without angina pectoris; Z95.5 Presence of coronary angioplasty implant and graft; E78.5 Hyperlipidemia, unspecified; Z86.718 Personal history of other venous thrombosis and embolism; D63.1 Anemia in chronic kidney disease; N18.9 Chronic kidney disease, unspecified; I12.9 Hypertensive chronic kidney disease with stage 1 through stage 4 chronic kidney disease, or unspecified chronic kidney disease; J45.909 Unspecified asthma, uncomplicated; R68.0 Hypothermia, not associated with low environmental temperature; Z79.51 Long term (current) use of inhaled steroids; Z79.82 Long term (current) use of aspirin; I70.8 Atherosclerosis of other arteries; I95.9 Hypotension, unspecified; K21.9 Gastro-esophageal reflux disease without esophagitis
CPT/HCPCS: 36010; 36415; 36416; 36600; 37191; 51702; 70450; 71045; 71275; 74177; 80053; 80306; 80307; 81001; 82274; 82533; 82728; 82803; 82962; 83036; 83540; 83605; 83735; 83880; 84100; 84145; 84439; 84443; 84481; 84484; 85014; 85018; 85025; 85045; 85610; 85730; 86140; 86850; 86900; 86920; 87040; 87086; 87426; 87635; 87804; 93005; 93306; 93970; 94640; 94664; 96365; 96367; 96375; 96376; 97110; 97116; 97161; 99152; 99153; 99285; C1769; C1880; C1887; C1894; C9113; J1644; J1720; J1756; J1956; J2185; J2250; J3010; J3370; J3475; J3490; J7030; J7040; J7050; J7060; J7120; J7613; J7626; J7644; P9016; Q9967

== ENCOUNTER → 2022-06-13 15:15 | Outpatient (BNVA) | payer MEDICARE, MEDICAID, SELFPAY | PROVIDERS: PCP Internal Medicine; Visit Provider Internal Medicine | DX: I12.9 Hypertensive chronic kidney disease with stage 1 through stage 4 chronic kidney disease, or unspecified chronic kidney disease (principal); N18.9 Chronic kidney disease, unspecified; I25.10 Atherosclerotic heart disease of native coronary artery without angina pectoris; Z98.890 Other specified postprocedural states; Z87.19 Personal history of other diseases of the digestive system; I65.29 Occlusion and stenosis of unspecified carotid artery; Z95.5 Presence of coronary angioplasty implant and graft; I26.99 Other pulmonary embolism without acute cor pulmonale | CPT/HCPCS: 99214 ==

== ENCOUNTER 2022-07-03 13:00 | Oncology outpatient (recurring) (ONCR) | payer MEDICARE, MEDICAID, SELFPAY ==
--- NOTE | 2022-06-28 11:06 | XR_ITS ---
WS: [id number] Exam: XR chest 2V* [id number] Date/Time of Exam: 06/28/2022 11:07 AM Reason For Exam: Productive cough Comparison 06/03/2022. The lungs are fully inflated and clear. Normal heart size. The mediastinum is normal in contour. No p leural effusions. IVC filter noted. Surgical clips in the right abdomen that may be secondary to prio r cholecystectomy. Mild DJD of the T-spine and osteopenia. XR/XR chest 2V* [id number] IMPRESSION: 1. No acute cardiopulmonary process.
[2022-07-03 14:46] LABS: Reticulocyte % 2.2 % (0.5-2.0)
[2022-07-03 14:47] LABS: Basophils # 0.1 10^3/uL (0.0-0.1); Basophils % 1.7 %; Eosinophils # 0.1 10^3/uL (0.0-0.8); Eosinophils % 1.5 %; Hematocrit 33.6 % (37.0-47.0); Hemoglobin 10.5 g/dL (11.5-15.3); Lymphocytes # 2.5 10^3/uL (0.8-4.8); Lymphocytes % 29.1 %; Mean Corpuscular HGB Conc 31.3 g/dL (30.0-36.0); Mean Corpuscular Hemoglobin 28.8 pg (28.0-34.0); Mean Corpuscular Volume 92.3 fl (81-99); Mean Platelet Volume 11.8 fL (7.4-10.4); Monocytes # 0.6 10^3/uL (0.2-0.9); Neutrophils % 60.2 %; Nucleated Red Blood Cells % 0 %; Platelet Count 190 10^3/cmm (130-400); Red Blood Count 3.64 10^6/uL (4.1-5.3); Red Cell Distribution Width 15.1 % (12.1-15.1); White Blood Count 8.5 10^3/uL (4.0-10.0)
[2022-07-03 14:54] LABS: Erythrocyte Sedimentation Rate 29 mm/hr (0-15)
[2022-07-03 15:03] LABS: Alanine Aminotransferase 12 U/L (0-33); Albumin Level 3.9 g/dL (3.5-5.2); Alkaline Phosphatase 144 U/L (35-105); Anion Gap 16.5 (5-19); Aspartate Amino Transferase 16 U/L (0-32); Blood Urea Nitrogen 17 mg/dL (8-23); C Reactive Protein 10.4 mg/L (0.0-4.9); Calcium 9.5 mg/dL (8.5-10.5); Carbon Dioxide 22 mmol/L (22-29); Chloride 103 mmol/L (98-107); Ferritin 501 ng/mL (15-150); Globulin 3.1 g/dL (1.3-4.6); Glucose 94 mg/dL (65-115); Iron 49 ug/dL (37-145); Lactate Dehydrogenase 225 U/L (135-214); Osmolality Calculated 287 mOsm/kg (285-295); Percent Saturation 19.6 % (20-50); Potassium 3.5 mmol/L (3.5-5.1); Sodium 138 mmol/L (136-145); Total Bilirubin 0.5 mg/dL (0.15-1.2); Total Iron Binding Capacity 249 mcg/dl; Unsaturated Iron Binding 200 ug/dL (112-347)
[2022-07-03 15:14] LABS: LAB Peripheral Smear Sent for Review
[2022-07-03 15:18] LABS: Vitamin B12 348 pg/mL (232-1245)
[2022-07-06 04:43] LABS: PROTEIN C, ACTIVITY 125 % normal (70-180)
[2022-07-07 05:29] LABS: Antithrombin III Activity 115 % normal (80-135)
[2022-07-07 06:55] LABS: CARDIOLIPIN AB (IGA) <2.0 APL-U/mL; CARDIOLIPIN AB (IGG) <2.0 GPL-U/mL
[2022-07-08 09:19] LABS: Beta 2 Glycoprotein IGA <2.0 U/mL (<20.0); Beta 2 Glycoprotein IGG <2.0 U/mL (<20.0); Beta 2 Glycoprotein IGM <2.0 U/mL (<20.0)
[2022-07-09 18:20] LABS: PROTHROMBIN (FACTOR II) 20210G NEGATIVE
[2022-07-10 16:59] LABS: Factor 5 Leiden Mutation NEGATIVE
== END 2022-07-04 23:59 | disposition home or self-care (01) ==
PROVIDERS: PCP Internal Medicine; Visit Provider Internal Medicine Medical Oncology
DX: I26.99 Other pulmonary embolism without acute cor pulmonale (principal); D64.9 Anemia, unspecified
CPT/HCPCS: 36415; 71046; 80053; 81241; 82274; 82607; 82728; 83010; 83540; 83550; 83615; 85025; 85045; 85210; 85300; 85303; 85651; 86140; 86146; 86147; 87070; 87205; 99205

== ENCOUNTER → 2022-07-14 08:12 | Outpatient (BNVA) | payer MEDICARE, MEDICAID, SELFPAY | PROVIDERS: PCP Internal Medicine; Visit Provider Nurse Practitioner | DX: D64.9 Anemia, unspecified (principal) | CPT/HCPCS: 99214 ==

== ENCOUNTER 2022-07-19 14:00 | Oncology outpatient (recurring) (ONCR) | payer MEDICARE, MEDICAID, SELFPAY ==
[2022-07-14 08:58] LABS: Basophils # 0.1 10^3/uL (0.0-0.1); Basophils % 1.3 %; Eosinophils # 0.6 10^3/uL (0.0-0.8); Eosinophils % 8.4 %; Hematocrit 36.2 % (37.0-47.0); Hemoglobin 11.1 g/dL (11.5-15.3); Lymphocytes # 2.3 10^3/uL (0.8-4.8); Lymphocytes % 33.4 %; Mean Corpuscular HGB Conc 30.7 g/dL (30.0-36.0); Mean Corpuscular Hemoglobin 29.1 pg (28.0-34.0); Mean Platelet Volume 11.4 fL (7.4-10.4); Monocytes # 0.5 10^3/uL (0.2-0.9); Monocytes % 7.4 %; Neutrophils # 3.34 10^3/uL (1.8-7.7); Neutrophils % 49.2 %; Nucleated Red Blood Cells % 0 %; Platelet Count 255 10^3/cmm (130-400); Red Blood Count 3.81 10^6/uL (4.1-5.3); White Blood Count 6.8 10^3/uL (4.0-10.0)
[2022-07-14 09:16] LABS: Iron 57 ug/dL (37-145); Percent Saturation 22.9 % (20-50); Total Iron Binding Capacity 248 mcg/dl; Unsaturated Iron Binding 191 ug/dL (112-347)
[2022-07-19 14:42] LABS: Basophils # 0.1 10^3/uL (0.0-0.1); Basophils % 1.4 %; Eosinophils # 0.3 10^3/uL (0.0-0.8); Eosinophils % 3.8 %; Hematocrit 35.2 % (37.0-47.0); Lymphocytes # 2.7 10^3/uL (0.8-4.8); Lymphocytes % 36.4 %; Mean Corpuscular HGB Conc 31.3 g/dL (30.0-36.0); Mean Corpuscular Hemoglobin 29.5 pg (28.0-34.0); Mean Corpuscular Volume 94.4 fl (81-99); Mean Platelet Volume 11.5 fL (7.4-10.4); Monocytes # 0.5 10^3/uL (0.2-0.9); Monocytes % 6.9 %; Neutrophils # 3.77 10^3/uL (1.8-7.7); Neutrophils % 51.1 %; Nucleated Red Blood Cells % 0 %; Platelet Count 269 10^3/cmm (130-400); Red Blood Count 3.73 10^6/uL (4.1-5.3); Red Cell Distribution Width 14.7 % (12.1-15.1); White Blood Count 7.4 10^3/uL (4.0-10.0)
== END 2022-08-04 23:59 | disposition home or self-care (01) ==
PROVIDERS: Nurse Practitioner; PCP Internal Medicine; Visit Provider Internal Medicine Medical Oncology
DX: I26.99 Other pulmonary embolism without acute cor pulmonale (principal); D64.9 Anemia, unspecified; N18.9 Chronic kidney disease, unspecified
CPT/HCPCS: 36415; 83540; 83550; 85025; 99214

== ENCOUNTER → 2022-08-01 11:27 | Outpatient (BNVA) | payer MEDICARE, MEDICAID, SELFPAY | PROVIDERS: PCP Internal Medicine; Visit Provider Surgery | DX: D64.9 Anemia, unspecified (principal) | CPT/HCPCS: 99203 ==

== ENCOUNTER 2022-08-10 11:32 | Oncology outpatient (recurring) (ONCR) | payer MEDICARE, MEDICAID, SELFPAY ==
[2022-08-10 12:30] LABS: Reticulocyte % 1.8 % (0.5-2.0)
[2022-08-10 12:55] LABS: Ferritin 338 ng/mL (15-150); Iron 49 ug/dL (37-145); Lactate Dehydrogenase 211 U/L (135-214); Percent Saturation 17.3 % (20-50); Total Iron Binding Capacity 282 mcg/dl; Unsaturated Iron Binding 233 ug/dL (112-347)
[2022-08-10 13:19] LABS: Basophils # 0.2 10^3/uL (0.0-0.1); Basophils % 2.1 %; Eosinophils # 0.4 10^3/uL (0.0-0.8); Eosinophils % 4.9 %; Hematocrit 35.9 % (37.0-47.0); Hemoglobin 11.3 g/dL (11.5-15.3); Lymphocytes # 2.5 10^3/uL (0.8-4.8); Lymphocytes % 32.6 %; Mean Corpuscular HGB Conc 31.5 g/dL (30.0-36.0); Mean Corpuscular Hemoglobin 28.8 pg (28.0-34.0); Mean Corpuscular Volume 91.6 fl (81-99); Monocytes # 0.5 10^3/uL (0.2-0.9); Monocytes % 6.4 %; Neutrophils % 53.7 %; Nucleated Red Blood Cells % 0 %; Platelet Count 224 10^3/cmm (130-400); Red Blood Count 3.92 10^6/uL (4.1-5.3); White Blood Count 7.8 10^3/uL (4.0-10.0)
[2022-08-10 13:29] LABS: Alanine Aminotransferase 13 U/L (0-33); Alkaline Phosphatase 131 U/L (35-105); Anion Gap 16.3 (5-19); Aspartate Amino Transferase 19 U/L (0-32); Blood Urea Nitrogen 28 mg/dL (8-23); Calcium 9.8 mg/dL (8.5-10.5); Carbon Dioxide 22 mmol/L (22-29); Chloride 105 mmol/L (98-107); Globulin 3.6 g/dL (1.3-4.6); Glucose 92 mg/dL (65-115); Osmolality Calculated 293 mOsm/kg (285-295); Potassium 4.3 mmol/L (3.5-5.1); Sodium 139 mmol/L (136-145); Total Bilirubin 0.3 mg/dL (0.15-1.2); Total Protein 7.6 g/dL (6.6-8.7)
== END 2022-09-03 23:59 | disposition home or self-care (01) ==
PROVIDERS: Nurse Practitioner Family; PCP Internal Medicine; Visit Provider Internal Medicine Medical Oncology
DX: I26.99 Other pulmonary embolism without acute cor pulmonale (principal); D50.0 Iron deficiency anemia secondary to blood loss (chronic); R57.1 Hypovolemic shock; Z79.01 Long term (current) use of anticoagulants; Z79.899 Other long term (current) drug therapy
CPT/HCPCS: 36415; 80053; 82728; 83010; 83540; 83550; 83615; 85025; 85045; 99214

== ENCOUNTER → 2022-08-16 16:56 | Outpatient (BNVA) | payer MEDICARE, MEDICAID, SELFPAY | PROVIDERS: PCP Internal Medicine; Visit Provider Internal Medicine Pulmonary Disease | DX: R05.8 Other specified cough (principal); T78.40XA Allergy, unspecified, initial encounter | CPT/HCPCS: 36415; 82785; 86003; 99204 ==

== ENCOUNTER 2022-08-22 06:11 | Outpatient (CLI) | payer MEDICARE, MEDICAID, SELFPAY ==
--- NOTE | 2022-08-22 06:30 | CT_ITS ---
WS: [id number] CT CHEST ANGIOGRAPHY WITH REFORMATS HISTORY: Pulmonary emboli TECHNIQUE: Contiguous axial images are obtained through the chest during arterial injection of intrav enous contrast. Images are reconstructed to evaluate the pulmonary arteries. MIP imaging also reviewe d. All CT scans at [facility] use at least one of these dose optimization techniques: automat ed exposure control; mA and/or kV adjustment per patient size (includes targeted exams where dose is matched to clinical indication); or iterative reconstruction. CONTRAST: Omnipaque 350; 100 mL IV. DLP: 348.57 mGy.cm COMPARISON: 06/03/2022 Excellent opacification of the pulmonary arteries. There is a very minimal, nonocclusive single filli ng defect segmental branch LEFT lower lobe. No additional filling defects are identified. No new pulm onary emboli. Pulmonary artery is normal size. Atherosclerosis aorta. No RIGHT heart strain. Mild LEF T heart enlargement. No pericardial or pleural effusions. There is mild hazy attenuation throughout both lungs. This is new since the prior study and likely re lated to poor inspiration. No focal consolidation or mass. No mediastinal or hilar adenopathy. Prior cholecystectomy. No adrenal mass. Fatty replacement of the pancreas. Mild spondylitic changes t hroughout the spine. No destructive bone lesions. CT/CT angio chest PE protcl [id number] IMPRESSION: 1. Very minimal, nonocclusive remaining filling defect segmental branch LEFT l ower lobe pulmonary artery. 2. No RIGHT heart strain. 3. Mild hazy attenuation throughout both lungs is probably due to poor inspira tion during the examination.
[2022-08-22] MEDS: iohexol 350 mg/mL 500 mL Btl (per mL) IV (06:50)
== END 2022-08-22 06:12 | disposition home or self-care (01) ==
LOC: RAD 06:13
PROVIDERS: PCP Internal Medicine; Visit Provider Nurse Practitioner Family
DX: I26.99 Other pulmonary embolism without acute cor pulmonale (principal); D64.9 Anemia, unspecified
CPT/HCPCS: 71275; Q9967

== ENCOUNTER 2022-09-05 12:48 | Outpatient (CLI) | payer MEDICARE, MEDICAID, SELFPAY ==
[2022-09-05 13:17] VITALS: BP 139/73; BP 139/83
== END 2022-09-05 12:49 | disposition home or self-care (01) ==
LOC: RT 12:50
PROVIDERS: PCP Internal Medicine; Visit Provider Internal Medicine Pulmonary Disease
DX: R06.02 Shortness of breath (principal)
CPT/HCPCS: 94010; 94618; 94726; 94729

== ENCOUNTER 2022-09-07 13:18 | Oncology outpatient (recurring) (ONCR) | payer MEDICARE, MEDICAID, SELFPAY ==
[2022-09-07 13:42] LABS: Basophils # 0.1 10^3/uL (0.0-0.1); Basophils % 1.6 %; Eosinophils # 0.3 10^3/uL (0.0-0.8); Eosinophils % 4.5 %; Hematocrit 34.7 % (37.0-47.0); Hemoglobin 10.8 g/dL (11.5-15.3); Lymphocytes # 2.7 10^3/uL (0.8-4.8); Lymphocytes % 39.7 %; Mean Corpuscular HGB Conc 31.1 g/dL (30.0-36.0); Mean Platelet Volume 11.1 fL (7.4-10.4); Monocytes # 0.6 10^3/uL (0.2-0.9); Monocytes % 8.5 %; Neutrophils # 3.06 10^3/uL (1.8-7.7); Neutrophils % 45.4 %; Nucleated Red Blood Cells % 0 %; Platelet Count 206 10^3/cmm (130-400); Red Blood Count 3.73 10^6/uL (4.1-5.3); Red Cell Distribution Width 13.4 % (12.1-15.1); White Blood Count 6.7 10^3/uL (4.0-10.0)
[2022-09-07 14:03] LABS: Alanine Aminotransferase 12 U/L (0-33); Alkaline Phosphatase 123 U/L (35-105); Anion Gap 15.3 (5-19); Aspartate Amino Transferase 24 U/L (0-32); Blood Urea Nitrogen 24 mg/dL (8-23); Calcium 9.3 mg/dL (8.5-10.5); Carbon Dioxide 25 mmol/L (22-29); Chloride 103 mmol/L (98-107); Ferritin 300 ng/mL (15-150); Globulin 2.9 g/dL (1.3-4.6); Glucose 96 mg/dL (65-115); Iron 61 ug/dL (37-145); Osmolality Calculated 292 mOsm/kg (285-295); Percent Saturation 25.2 % (20-50); Potassium 4.3 mmol/L (3.5-5.1); Sodium 139 mmol/L (136-145); Total Bilirubin 0.4 mg/dL (0.15-1.2); Total Iron Binding Capacity 242 mcg/dl; Total Protein 6.9 g/dL (6.6-8.7); Unsaturated Iron Binding 181 ug/dL (112-347)
== END 2022-10-04 23:59 | disposition home or self-care (01) ==
PROVIDERS: Nurse Practitioner Family; PCP Internal Medicine; Visit Provider Internal Medicine Medical Oncology
DX: I26.99 Other pulmonary embolism without acute cor pulmonale (principal); D50.0 Iron deficiency anemia secondary to blood loss (chronic); R57.1 Hypovolemic shock; Z79.01 Long term (current) use of anticoagulants; Z79.899 Other long term (current) drug therapy
CPT/HCPCS: 80053; 82728; 83540; 83550; 85025; 99214

== ENCOUNTER 2022-09-20 07:26 | Day surgery (SDC) | payer MEDICARE, MEDICAID, SELFPAY ==
[2022-09-18 10:53] VITALS: BMI 28.3
[2022-09-20 07:44] VITALS: BP 134/68; PULSE 74; RESP 17; TEMP 36.6; O2SAT 98
[2022-09-20] MEDS: sodium chloride 0.9% 1,000 ML 30 ML IV (07:52)
--- NOTE | 2022-09-20 09:26 | ANES.PREANE2 ---
Pre-Anesthetic Assessment Height/Weight: Height 1.65 m Weight 77.111 kg Temp Pulse Resp BP Pulse Ox O2 Del Method 97.8 F 74 17 134/68 98 Room Air 09/20/22 07:44 09/20/22 07:44 09/20/22 07:44 09/20/22 07:44 09/20/22 07:44 09/20/22 07:44 Preop Diagnosis: anemia Operation Date: 09/20/22 09:00 Proposed Procedures p 66544 egd, 53972 colon D50.9,Z12.11(Not Applicable) - DO dom Silverio Colonoscopy(Not Applicable) - Camden Zaragoza DO Familial anesthetic complications: none Was Beta Shirley taken within 24 hours: N/A Was Clonidine taken within 24 hours: N/A Last intake: Intake Last Liquid Date 09/19/22 Last Liquid Time 22:00 Last Solid Date 09/17/22 Last Solid Time 18:00 Social Alcohol (rare) and No tobacco Exam alert, oriented x 3, clear to auscultation bilaterally and regular rate & rhythm Airway Submandibular: within normal limits Cervical ROM: within normal limits Mallampati: Class II Dentition: partials Pulmonary Asthma and Exertional Dyspnea ( general walking, stairs are tricky ) CV/HEM Deep Vein Thrombosis and Hypertension stent x IVC- filter may 2022 None reported Hepatic None reported GI Gastroesophageal Reflux Disease (controlled) Metabolic Hyperlipidemia [facility] [place] Lower Back Pain, Osteoarthritis/DJD and Weakness (lower extremties) Neuropsych Headache Anesthetic Plan ASA status: 3 Anesthesia: MAC Risk of > 500 ml blood loss (7ml/kg in children): No Medications/Allergies Home Medications Medication Instructions Recorded Confirmed Last Taken Type aspirin 81 mg tablet,delayed 81 mg PO DAILY@0800 05/19/19 09/20/22 09/18/22 History release (Adult Aspirin Regimen) fluticasone propionate 50 1 spray intranasal DAILY@0800 10/31/19 09/20/22 09/19/22 History mcg/actuation nasal spray,suspension (Flonase Allergy Relief) docusate sodium 100 mg capsule 100 mg PO DAILY 10/28/20 09/20/22 09/17/22 History nitroglycerin 0.4 mg sublingual 0.4 mg sublingual Q5M PRN CHEST 09/13/21 09/20/22 Unknown Rx tablet (Nitrostat) PAINS #25 tabs albuterol sulfate 90 mcg/actuation 1 puff inhalation QID PRN 06/06/22 09/20/22 Unknown Rx aerosol inhaler SHORTNESS OF BREATH/WHEEZING #8.5 grams ondansetron 8 mg disintegrating 8 mg PO Q8H PRN nausea and 08/01/22 09/20/22 09/19/22 Rx tablet vomiting #20 tabs pantoprazole 40 mg tablet,delayed 40 mg PO BID 08/01/22 09/20/22 09/19/22 History release cetirizine 10 mg capsule (Zyrtec) 10 mg PO DAILY 08/10/22 09/20/22 09/17/22 History simvastatin 80 mg tablet 40 mg PO DAILY 08/10/22 09/20/22 09/19/22 History rivaroxaban 10 mg tablet (Xarelto) 10 mg PO DAILY #90 tabs 09/14/22 09/20/22 Unknown Rx budesonide-formoterol HFA 160 2 puff inhalation BID@0800,199909/18/22 09/20/22 09/19/22 History mcg-4.5 mcg/actuation aerosol inhaler (Symbicort) Allergies Allergy/AdvReac Type Severity Reaction Status Date / Time penicillin G Allergy Mild ADR/ALGY-Pa Verified 09/20/22 07:41 lpitations ceftriaxone [From Rocephin] Allergy Unknown Unknown Verified 09/20/22 07:41 doxycycline Allergy Unknown Unknown Verified 09/20/22 07:41 erythromycin base Allergy Unknown Unknown Verified 09/20/22 07:41 gentamicin Allergy Unknown Unknown Verified 09/20/22 07:41 ketoconazole Allergy Unknown Unknown Verified 09/20/22 07:41 sulfamethoxazole Allergy Unknown Unknown Verified 09/20/22 07:41 [From Bactrim] trimethoprim [From Bactrim] Allergy Unknown Unknown Verified 09/20/22 07:41 Current Medications Generic Name Dose Route Start Last Admin Trade Name Freq PRN Reason Stop Dose Admin Sodium Chloride 1,000 mls @ 30 mls/hr 09/20/22 07:45 09/20/22 07:52 Sodium Chloride 0.9% IV 09/21/22 07:44 30 mls/hr .Q24H GOMEZ Administration PFSH Anesthesia Medical History Asthma Carotid stenosis Chronic kidney disease (CKD) Essential (primary) hypertension GERD (gastroesophageal reflux disease) History of anemia History of deep vein thrombosis (DVT) of lower extremity Left lower extremity deep vein thrombosis History of placement of stent in LAD coronary artery Hyperlipidemia Plantar fasciitis Surgical History History of cholecystectomy (2015) Cholecystectomy with abdominal hernia repair History of heart artery stent (2014) History of inferior vena caval filter placement Dr. Day History of tubal ligation History of ventral hernia repair (2016) History of ventral hernia repair (2021) With mesh Hx of colonoscopy 4-5 yrs ago Family History Other Dementia Hypertension Denies family history of Diabetes CAD (coronary artery disease) Clotting disorder Hyperlipidemia Psychiatric illness Chronic kidney disease (CKD) Suicide Anesthesia complication Bleeding disorder Family history of premature coronary artery disease Lung disease Cancer Stroke Social History Smoking and tobacco status: never smoked Alcohol intake: current Alcohol intake frequency: holidays/special occasions only Substance/Drug Use: never Marital status: Single Current occupational status: retired Data Anesthesia Cardiac Studies: Echocardiogram 06/04/22 Sestamibi Stress Test (Cardiology) 03/02/21
--- NOTE | 2022-09-20 09:52 | PM.HP ---
Providers/Chief Complaint Primary Care Provider: William Marie DO Chief Complaint: Z12.11, D50.9 History of Present Illness Denise Sanches is a 72 year old female here for EGD and colonoscopy Medications/Allergies Home Medications Medication Instructions Recorded Confirmed Last Taken Type aspirin 81 mg tablet,delayed 81 mg PO DAILY@0800 05/19/19 09/20/22 09/18/22 History release (Adult Aspirin Regimen) fluticasone propionate 50 1 spray intranasal DAILY@0800 10/31/19 09/20/22 09/19/22 History mcg/actuation nasal spray,suspension (Flonase Allergy Relief) docusate sodium 100 mg capsule 100 mg PO DAILY 10/28/20 09/20/22 09/17/22 History nitroglycerin 0.4 mg sublingual 0.4 mg sublingual Q5M PRN CHEST 09/13/21 09/20/22 Unknown Rx tablet (Nitrostat) PAINS #25 tabs albuterol sulfate 90 mcg/actuation 1 puff inhalation QID PRN 06/06/22 09/20/22 Unknown Rx aerosol inhaler SHORTNESS OF BREATH/WHEEZING #8.5 grams ondansetron 8 mg disintegrating 8 mg PO Q8H PRN nausea and 08/01/22 09/20/22 09/19/22 Rx tablet vomiting #20 tabs pantoprazole 40 mg tablet,delayed 40 mg PO BID 08/01/22 09/20/22 09/19/22 History release cetirizine 10 mg capsule (Zyrtec) 10 mg PO DAILY 08/10/22 09/20/22 09/17/22 History simvastatin 80 mg tablet 40 mg PO DAILY 08/10/22 09/20/22 09/19/22 History rivaroxaban 10 mg tablet (Xarelto) 10 mg PO DAILY #90 tabs 09/14/22 09/20/22 Unknown Rx budesonide-formoterol HFA 160 2 puff inhalation BID@08,199909/18/22 09/20/22 09/19/22 History mcg-4.5 mcg/actuation aerosol inhaler (Symbicort) Allergies Allergy/AdvReac Type Severity Reaction Status Date / Time penicillin G Allergy Mild ADR/ALGY-Pa Verified 09/20/22 07:41 lpitations ceftriaxone [From Rocephin] Allergy Unknown Unknown Verified 09/20/22 07:41 doxycycline Allergy Unknown Unknown Verified 09/20/22 07:41 erythromycin base Allergy Unknown Unknown Verified 09/20/22 07:41 gentamicin Allergy Unknown Unknown Verified 09/20/22 07:41 ketoconazole Allergy Unknown Unknown Verified 09/20/22 07:41 sulfamethoxazole Allergy Unknown Unknown Verified 09/20/22 07:41 [From Bactrim] trimethoprim [From Bactrim] Allergy Unknown Unknown Verified 09/20/22 07:41 PFSH Acute PFSH: Medical History (Updated 09/20/22 @ 09:52 by Camden Zaragoza DO) Asthma Carotid stenosis Chronic kidney disease (CKD) Essential (primary) hypertension GERD (gastroesophageal reflux disease) History of anemia History of deep vein thrombosis (DVT) of lower extremity Left lower extremity deep vein thrombosis History of placement of stent in LAD coronary artery Hyperlipidemia Plantar fasciitis Surgical History History of cholecystectomy (2015) Cholecystectomy with abdominal hernia repair History of heart artery stent (2014) History of inferior vena caval filter placement Dr. Day History of tubal ligation History of ventral hernia repair (2016) History of ventral hernia repair (2021) With mesh Hx of colonoscopy 4-5 yrs ago Family History Other Dementia Hypertension Denies family history of Diabetes CAD (coronary artery disease) Clotting disorder Hyperlipidemia Psychiatric illness Chronic kidney disease (CKD) Suicide Anesthesia complication Bleeding disorder Family history of premature coronary artery disease Lung disease Cancer Stroke Social History Smoking and tobacco status: never smoked Alcohol intake: current Alcohol intake frequency: holidays/special occasions only Substance/Drug Use: never Marital status: Single Current occupational status: retired Vitals/I&O/Wt Last Vital Signs Temp 97.8 F 09/20/22 07:44 Pulse 74 09/20/22 07:44 Resp 17 09/20/22 07:44 BP 134/68 09/20/22 07:44 Pulse Ox 98 09/20/22 07:44 O2 Del Method Room Air 09/20/22 07:44 Weight last 48 hrs Weight 170 lb A&P Assessment and plan (1) Colon cancer screening: (2) GERD (gastroesophageal reflux disease): Plan EGD and colonoscopy Attestations Medical Necessity Statement*: Home Coding Level of Care Code Acute Code for Chg Fwd Diagnoses Colon cancer screening Z12.11 GERD (gastroesophageal reflux disease) K21.9
[2022-09-20 10:27] VITALS: BP 107/53; PULSE 58; RESP 16; TEMP 36.1; O2SAT 91
[2022-09-20 10:38] VITALS: BP 125/63; PULSE 55; RESP 16; O2SAT 94
--- NOTE | 2022-09-20 14:24 | ANE.PACU2 ---
Inpatient post-anesthesia follow up: Airway intact: Yes Vital signs: Temperature 97 F Pulse Rate 55 Respiratory Rate 16 Blood Pressure 125/63 Pulse Oximetry 94 Oxygen Delivery Me thod Room Air Oxygen Flow Rate 4 Fraction of Inspir ed Oxygen Hydration adequate: Yes Nausea and vomiting: No Pain level: 1 Mental status: Baseline
== END 2022-09-20 11:12 | disposition home or self-care (01) ==
PROVIDERS: PCP Internal Medicine; Visit Provider Surgery
PROC: 0DJ08ZZ Inspection of Upper Intestinal Tract, Via Natural or Artificial Opening Endoscopic (ICD-10-PCS; CPT 43235; principal; 2022-09-20 09:00)
PROC: 0DJD8ZZ Inspection of Lower Intestinal Tract, Via Natural or Artificial Opening Endoscopic (ICD-10-PCS; CPT 45378; 2022-09-20 09:00)
DX: Z12.11 Encounter for screening for malignant neoplasm of colon (principal); K21.9 Gastro-esophageal reflux disease without esophagitis; E78.5 Hyperlipidemia, unspecified; J45.909 Unspecified asthma, uncomplicated; Z79.82 Long term (current) use of aspirin; Z86.718 Personal history of other venous thrombosis and embolism; I85.00 Esophageal varices without bleeding; Z86.010 Personal history of colon polyps; K64.8 Other hemorrhoids; K29.50 Unspecified chronic gastritis without bleeding; B96.81 Helicobacter pylori [H. pylori] as the cause of diseases classified elsewhere
CPT/HCPCS: 43239; 45385; 88305; J2704; J7030

== ENCOUNTER → 2022-10-10 16:55 | Outpatient (BNVA) | payer MEDICARE, MEDICAID, SELFPAY | PROVIDERS: PCP Internal Medicine; Visit Provider Surgery | DX: Z09 Encounter for follow-up examination after completed treatment for conditions other than malignant neoplasm (principal) | CPT/HCPCS: 99212 ==

== ENCOUNTER → 2022-12-12 13:55 | Outpatient (BNVA) | payer MEDICARE, MEDICAID, SELFPAY | PROVIDERS: PCP Internal Medicine; Visit Provider Internal Medicine | DX: Z98.890 Other specified postprocedural states (principal); Z87.19 Personal history of other diseases of the digestive system; I12.9 Hypertensive chronic kidney disease with stage 1 through stage 4 chronic kidney disease, or unspecified chronic kidney disease; N18.9 Chronic kidney disease, unspecified; I65.29 Occlusion and stenosis of unspecified carotid artery; Z95.5 Presence of coronary angioplasty implant and graft; I25.10 Atherosclerotic heart disease of native coronary artery without angina pectoris; I26.99 Other pulmonary embolism without acute cor pulmonale; Z79.01 Long term (current) use of anticoagulants; Z79.82 Long term (current) use of aspirin | CPT/HCPCS: 99214 ==

== ENCOUNTER 2022-12-13 12:10 | Oncology outpatient (recurring) (ONCR) | payer MEDICARE, MEDICAID, SELFPAY ==
[2022-12-13 12:14] VITALS: BMI 29.7
[2022-12-13 12:15] VITALS: BP 123/70; PULSE 66; RESP 18; TEMP 36.3; O2SAT 96
[2022-12-13 12:40] LABS: Basophils # 0.1 10^3/uL (0.0-0.1); Basophils % 1.5 %; Eosinophils # 0.2 10^3/uL (0.0-0.8); Eosinophils % 3.2 %; Hematocrit 33.8 % (37.0-47.0); Hemoglobin 10.8 g/dL (11.5-15.3); Lymphocytes # 1.7 10^3/uL (0.8-4.8); Lymphocytes % 27.8 %; Mean Corpuscular Hemoglobin 29.8 pg (28.0-34.0); Mean Corpuscular Volume 93.1 fl (81-99); Mean Platelet Volume 10.7 fL (7.4-10.4); Monocytes # 0.5 10^3/uL (0.2-0.9); Monocytes % 7.8 %; Neutrophils # 3.67 10^3/uL (1.8-7.7); Neutrophils % 59.4 %; Nucleated Red Blood Cells % 0 %; Platelet Count 217 10^3/cmm (130-400); Red Blood Count 3.63 10^6/uL (4.1-5.3); Red Cell Distribution Width 13.6 % (12.1-15.1); White Blood Count 6.2 10^3/uL (4.0-10.0)
[2022-12-13 13:01] LABS: Alanine Aminotransferase 13 U/L (0-33); Alkaline Phosphatase 143 U/L (35-105); Aspartate Amino Transferase 23 U/L (0-32); Blood Urea Nitrogen 16 mg/dL (8-23); Calcium 9.1 mg/dL (8.5-10.5); Carbon Dioxide 24 mmol/L (22-29); Chloride 105 mmol/L (98-107); Ferritin 250 ng/mL (15-150); Glucose 86 mg/dL (65-115); Iron 59 ug/dL (37-145); Osmolality Calculated 288 mOsm/kg (285-295); Percent Saturation 22.6 % (20-50); Sodium 139 mmol/L (136-145); Total Bilirubin 0.3 mg/dL (0.15-1.2); Total Iron Binding Capacity 260 mcg/dl; Unsaturated Iron Binding 201 ug/dL (112-347)
[2022-12-13 16:05] LABS: Vitamin B12 286 pg/mL (232-1245)
== END 2023-01-04 23:59 | disposition home or self-care (01) ==
PROVIDERS: PCP Internal Medicine; Visit Provider Internal Medicine Medical Oncology
DX: I26.99 Other pulmonary embolism without acute cor pulmonale (principal); R57.1 Hypovolemic shock; Z79.01 Long term (current) use of anticoagulants; Z79.899 Other long term (current) drug therapy; D50.0 Iron deficiency anemia secondary to blood loss (chronic); I85.01 Esophageal varices with bleeding
CPT/HCPCS: 36415; 80053; 82607; 82728; 83540; 83550; 85025; 99214

== ENCOUNTER → 2022-12-18 15:25 | Outpatient (BNVA) | payer MEDICARE, MEDICAID, SELFPAY | PROVIDERS: PCP Internal Medicine; Visit Provider Internal Medicine Pulmonary Disease | DX: M25.641 Stiffness of right hand, not elsewhere classified (principal); M25.642 Stiffness of left hand, not elsewhere classified | CPT/HCPCS: 36415; 85651; 86140; 86160; 86162; 86200; 86235; 86255; 86376; 99214 ==

== ENCOUNTER 2023-01-09 07:13 | Outpatient (CLI) | payer MEDICARE, MEDICAID, SELFPAY ==
[2023-01-09] VITALS (10 sets, daily range): BP systolic 106–189; BP diastolic 49–87; PULSE 44–73; RESP 14–20; TEMP 36.7; O2SAT 94–97; BMI 28.6
--- NOTE | 2023-01-09 | XACV_ITS ---
Exam Room: [facility] Ht: 165 cm Wt: 78 kg BSA: 1.91 m2 Gender: Female : 1950 Any Known Allergies: Other Exam Priority: Routine Procedure(s): Procedure Description: Diagnostic procedure Procedure Description: Peripheral Cath Diagnostic Procedure Procedure Description: Venous procedures Procedure Description: Venous Angiography Abdominal Interventional Findings INDICATION: IVC filter removal as patient is now tolerating anticoagulation. PROCEDURE DETAIL: Under ultrasound guidance and using micropuncture we obtained access in the right internal jugular artery. roundCorner retrievable sheath was advanced under fluoroscopic guidance. After IVC filter was snared and ensheathed, it was removed. Through the sheath, IVC venogram was performed and confirmed no complications. Sheath was removed and pressure held for 15 minutes. Patient left the laboratory chemist in a stable condition. Conclusions Successful retrieval of IVC filter. Recommendations Outpatient cardiology follow up in 4 weeks. Continue anticoagulation. Pressures Phase:Rest AO : / ( 0 ) @ 10:40:00 AM / ( 0 ) @ 10:41:00 AM / ( 0 ) @ 10:53:00 AM Hemodynamic Data Phase:Rest AO : / ( 0.0 ) @ 10:40:00 AM / ( 0.0 ) @ 10:41:00 AM / ( 0.0 ) @ 10:53:00 AM Clinical Evaluation EBL: 5mL-10mL Procedural Details Procedure Consent Obtained. Pre-Procedure Time Out. Identified patient by full name and date of as verbalized by the patient/guarantor. Does the consent match the physician's order: Yes. Accurate & Complete Informed Consent: Yes. Inpatient/Outpatient History & Physical on Chart: Yes. If H&P is completed, is and addenduem needed: No. Visualize and Verify Site with Patient/Guarantor: N/A. Relevant Radiology Images available: Yes. The risks, benefits, and alternatives of sedation and/or procedure were discussed by physician. The patient agrees to continue. Procedure started. Correct patient, site and procedure confirmed by cath team. Current diagnosis: IVC Filter removal. PERRLA. Strong, equal hand reexaminer bilaterally. Lungs clear x 5 lobes. IV Site on Arrival: 20 gauge in the left anticubital. IV Fluids: 0.9% NaCl at KVO. 0 mL infused prior to laboratory chemist. Oxygen started at 2liters/min via nasal canula. Physician notified. Baseline sample Acquired. HR: 63 BPM. Patient's family in CPRU Room #3. Dr. Akins will update at the compeltion of the procedure. Equipment: 6F - Femoral. Cardiac Cath Pack. ACIST Manifold Kit Model BT 2000. Heparinized Saline (2 units/mL), 1000 mL bag. Kit, Micropuncture. Physician arrived. right neck was prepped with chloroprep then draped in the usual sterile fashion. Physician scrubbed in. Immediate Pre-Procedure Time Out. Correct Patient: Yes; Correct Procedure: Yes; Correct Site: Yes; Correct Patient Position: Yes; Correct Supplies: Yes; Dried Flammable Prep: Yes; Blood Products Available: N/A;. Lidocaine 1% infiltrated to the right neck. Venous access obtained with a micropuncture set using ultrasound guidance. Lidocaine 1% infiltrated to the right neck. 6 fr sheath out, 12 Fr Cook dilator in. Sheath upsized to a 11 Fr. Cook Snare in. Cook Snare out. Cook Snare in. Cook Snare out. Exchange J wire in. 11 fr Cook dilator in to advance the sheath. 11 Fr Cook dilator out. Exchange J wire out. Venogram of the IVC performed at 10 mL/second for a total of 30 mL. Cook Snare in. IVC filter removed using the Cook snare device. Venogram of the IVC performed at 10 mL/second for a total of [address] Akins scrubbed out. A Manual Compression was successful obtaining hemostatsis at the Right Jugular vein insertion site. Sterile 4x4 and Op-site applied to the puncture site. No oozing or hematoma noted. Post sheath removal instructions were given and the patient verbalized understanding. PERRLA. Strong, equal hand reexaminer bilaterally. No VTE prophylaxis required. Medication's Wasted: Heparin = 1000 Units. Medication's Wasted: Other = Versed 1 mg. Medication's Wasted: Other = Fentanyl 50 mcg. Total IV fluids: 302 mL. Post-op diagnosis: S/P IVC filter removal. Complications: none. Estimated blood loss: 5mL-10mL. Responsiveness - Normal response to verbal stimuli; alert and oriented, PERRLA. Airway - Unaffected, no intervention required; spontaneous ventilation. Circulation: W/N/L, pulses unchanged. Nausea/Vomiting: No. Patient transferred by bed to CPRU. Procedure completed. Vital chart was stopped. Access Site Site: Right Jugular vein Sheath Size: 6 Fr Hemostasis Method: Manual Compression Hemostasis Success: Successful Procedure Medications Start: 9:23 AM Stop: 9:23 AM Medication: Versed Amount: 1 mg Route: I.V. Start: 9:23 AM Stop: 9:23 AM Medication: Fentanyl Amount: 50 mcg Route: I.V. Start: 9:27 AM Stop: 9:27 AM Medication: Versed Amount: 1 mg Route: I.V. Start: 9:31 AM Stop: 9:31 AM Medication: Fentanyl Amount: 25 mcg Route: I.V. Start: 9:38 AM Stop: 9:38 AM Medication: 0.9% Saline Amount: 250 ml Route: I.V. bolus Start: 9:47 AM Stop: 9:47 AM Medication: Versed Amount: 1 mg Route: I.V. Start: 9:53 AM Stop: 9:53 AM Medication: Versed Amount: 1 mg Route: I.V. Start: 9:55 AM Stop: 9:55 AM Medication: Fentanyl Amount: 50 mcg Route: I.V. Start: 10:11 AM Stop: 10:11 AM Medication: Versed Amount: 1 mg Route: I.V. Start: 10:14 AM Stop: 10:14 AM Medication: Fentanyl Amount: 25 mcg Route: I.V. I, the attending physician, have reviewed and verified all procedure medications. Yes, all medications given per verbal order History/Risk Factors Hypertension: Yes Dyslipidemia: No Peripheral Arterial Disease (PAD): No Myocardial Infarction (FL): No Obesity: No Renal Disease: No Prior Interventions PCI: Yes CABG: No Valve Surgery: No Report Signatures Finalized by Rasta Akins MD on 01/23/2023 04:22 PM
[2023-01-09 08:02] LABS: Basophils # 0.1 10^3/uL (0.0-0.1); Basophils % 1.2 %; Eosinophils # 0.3 10^3/uL (0.0-0.8); Eosinophils % 3.4 %; Hematocrit 35.1 % (36-47); Lymphocytes # 2.6 10^3/uL (0.8-4.8); Lymphocytes % 35.2 %; Mean Corpuscular HGB Conc 32.2 g/dL (30-55); Mean Corpuscular Hemoglobin 29.5 pg (27-33); Mean Corpuscular Volume 91.6 fl (85-98); Mean Platelet Volume 10.8 fL (7.4-10.4); Monocytes # 0.6 10^3/uL (0.2-0.9); Monocytes % 8.2 %; Neutrophils # 3.78 10^3/uL (1.8-7.7); Neutrophils % 51.7 %; Nucleated Red Blood Cells % 0 %; Platelet Count 215 10^3/cmm (157-399); Red Blood Count 3.83 10^6/uL (3.85-5.65); Red Cell Distribution Width 13.2 % (12.1-15.1); White Blood Count 7.31 10^3/uL (3.29-11.43)
[2023-01-09 08:18] LABS: INR 0.92 (0.8-1.2)
[2023-01-09 08:20] LABS: Blood Urea Nitrogen 22 mg/dL (8-23); Calcium 9.4 mg/dL (8.5-10.5); Carbon Dioxide 26 mmol/L (22-29); Chloride 105 mmol/L (98-107); Glucose 93 mg/dL (65-115); Osmolality Calculated 293 mOsm/kg (285-295); Sodium 140 mmol/L (136-145)
[2023-01-09 08:21] LABS: Anion Gap 12.9 (5-19); Potassium 3.9 mmol/L (3.5-5.1)
--- NOTE | 2023-01-09 09:23 | W.PM.OPSUD ---
Surgery/Procedure H&P Update DATE OF PROCEDURE: January 09, 2023 DATE H&P PERFORMED: 12/12/22 H&P UPDATE INFORMATION: I have reviewed H&P completed within last 30 days, I have examined patient prior to procedure and No changes to prior documentation PREOP DIAGNOSIS: Pulmonary emboli (now tolerating anticoagulation) PRIMARY INDICATION FOR PROCEDURE: Patient tolerating anticoagulation. Plan for IVC filter removal PLANNED PROCEDURE: Operation Date: 01/09/23 08:30 Proposed Procedures p IVC Filter Removal 04413, Z95.828(Not Applicable) - Rasta Akins M.D PATIENT REASSESSED PRIOR TO SEDATION, WITH NO CHANGE NOTED: Yes PHYSICAL EXAM: alert, oriented x 3, clear to auscultation bilaterally and regular rate & rhythm AIRWAY EVAL/ANESTHESIA PLAN: normal airway, ASA III, Local Anesthesia, Risks, benefits & alternatives of sedation and/or procedure discussed and Patient agrees to continue as planned ADDITIONAL INFORMATION: Moderate sedation
--- NOTE | 2023-01-09 11:36 | PC.NURSE ---
1055:Patient returned to CPRU from foundry laborer coreroom post IVC filter removal. Dsg over removal site to right jugular clean, dry, et intact. No drainage or hematoma noted. Vitals stable. No c/o pain or discomfort. Will continue to monitor. 1125: Transfer orders received. Dsg over removal site to right jugular clean, dry, et intact. No drainage or hematoma noted. Vitals stable. No c/o pain or discomfort. Report given to SVEN Miller. Patient transferred from CPRU to CSU via hospital bed. All belongings sent with patient.
[2023-01-09] MEDS: acetaminophen 325 mg Tablet 650 MG PO (13:20)
--- NOTE | 2023-01-09 15:17 | PC.NURSE ---
wound care instructed pt via phone to leave the dressing on for 24 hrs and shower post 24 hrs.
== END 2023-01-09 15:06 | disposition home or self-care (01) ==
LOC: CCL 07:14 → CSU 11:58
PROVIDERS: PCP Internal Medicine; Visit Provider Internal Medicine
PROC: (CPT 37193; principal; 2023-01-09 08:30)
DX: Z95.828 Presence of other vascular implants and grafts (principal); I25.10 Atherosclerotic heart disease of native coronary artery without angina pectoris; E78.5 Hyperlipidemia, unspecified; Z86.718 Personal history of other venous thrombosis and embolism; I12.9 Hypertensive chronic kidney disease with stage 1 through stage 4 chronic kidney disease, or unspecified chronic kidney disease; N18.9 Chronic kidney disease, unspecified; Z79.82 Long term (current) use of aspirin
CPT/HCPCS: 36010; 37193; 75825; 80048; 85025; 85610; 96365; 96367; 99152; 99153; C1769; C1773; C1894; J1644; J2250; J3010; J7030; Q9967

== ENCOUNTER 2023-01-10 13:15 | Oncology outpatient (recurring) (ONCR) | payer MEDICARE, MEDICAID, SELFPAY ==
[2023-01-10 13:37] LABS: Basophils # 0.1 10^3/uL (0.0-0.1); Eosinophils # 0.2 10^3/uL (0.0-0.8); Eosinophils % 3.1 %; Hematocrit 35.8 % (36-47); Lymphocytes # 1.5 10^3/uL (0.8-4.8); Lymphocytes % 24.8 %; Mean Corpuscular HGB Conc 32.4 g/dL (30-55); Mean Corpuscular Hemoglobin 30.1 pg (27-33); Mean Corpuscular Volume 92.7 fl (85-98); Mean Platelet Volume 10.9 fL (7.4-10.4); Monocytes # 0.5 10^3/uL (0.2-0.9); Monocytes % 7.5 %; Neutrophils # 3.88 10^3/uL (1.8-7.7); Neutrophils % 63.3 %; Nucleated Red Blood Cells % 0 %; Platelet Count 221 10^3/cmm (157-399); Red Blood Count 3.86 10^6/uL (3.85-5.65); Red Cell Distribution Width 13.2 % (12.1-15.1); Reticulocyte % 1.6 % (0.5-2.0); White Blood Count 6.13 10^3/uL (3.29-11.43)
[2023-01-10 13:54] LABS: Erythrocyte Sedimentation Rate 35 mm/hr (0-15)
[2023-01-10 13:56] LABS: Alanine Aminotransferase 10 U/L (0-33); Albumin Level 4.2 g/dL (3.5-5.2); Alkaline Phosphatase 144 U/L (35-105); Anion Gap 14.1 (5-19); Aspartate Amino Transferase 21 U/L (0-32); Blood Urea Nitrogen 20 mg/dL (8-23); C Reactive Protein 8.9 mg/L (0.0-4.9); Calcium 9.2 mg/dL (8.5-10.5); Carbon Dioxide 23 mmol/L (22-29); Chloride 106 mmol/L (98-107); Globulin 3.2 g/dL (1.3-4.6); Glucose 151 mg/dL (65-115); Lactate Dehydrogenase 220 U/L (135-214); Osmolality Calculated 294 mOsm/kg (285-295); Potassium 4.1 mmol/L (3.5-5.1); Sodium 139 mmol/L (136-145); Total Bilirubin 0.4 mg/dL (0.15-1.2); Total Protein 7.4 g/dL (6.6-8.7)
[2023-01-10 15:08] LABS: Folate Level < 20.0 ng/mL (4.8-37.3)
[2023-01-11 12:51] LABS: PROTEIN, TOTAL 7.1 g/dL (6.1-8.1)
[2023-01-12 07:45] LABS: ALBUMIN 3.9 g/dL (3.8-4.8); ALPHA 1 GLOBULIN 0.4 g/dL (0.2-0.3); ALPHA 2 GLOBULIN 0.8 g/dL (0.5-0.9); BETA 1 GLOBULIN 0.5 g/dL (0.4-0.6); BETA 2 GLOBULIN 0.4 g/dL (0.2-0.5); GAMMA GLOBULIN 1.2 g/dL (0.8-1.7)
[2023-01-12 15:10] LABS: KAPPA LIGHT CHAIN, FREE, SERUM 26.4 mg/L (3.3-19.4); KAPPA/LAMBDA LIGHT CHAINS FREE 1.86 (0.26-1.65); LAMBDA LIGHT CHAIN, FREE, SERU 14.2 mg/L (5.7-26.3)
[2023-01-13 09:16] LABS: Methylmalonic Acid 185 nmol/L (87-318)
== END 2023-02-03 23:59 | disposition home or self-care (01) ==
PROVIDERS: PCP Internal Medicine; Visit Provider Internal Medicine Medical Oncology
DX: I26.99 Other pulmonary embolism without acute cor pulmonale (principal); D50.0 Iron deficiency anemia secondary to blood loss (chronic); R57.1 Hypovolemic shock; Z79.01 Long term (current) use of anticoagulants; Z79.899 Other long term (current) drug therapy
CPT/HCPCS: 36415; 80053; 82746; 83010; 83615; 83883; 83921; 84155; 84165; 85025; 85045; 85651; 86140; 99214

== ENCOUNTER 2023-01-22 14:05 | Outpatient (CLI) | payer MEDICARE, MEDICAID, SELFPAY ==
--- NOTE | 2023-01-22 14:45 | USCV_ITS ---
Denise Sanches Age: 72 Gender: F : 1950 Exam Date: 01/22/2023 14:45 Ordering Phys: William Roberts MD Technologist: [place] [facility] [place]: hx of dvt and pe PROCEDURES: Venous duplex imaging was performed in bilateral lower extremities. The venous duplex Doppler examination of both lower extremities was performed in the standard fashion. The following venous structures were evaluated: common femoral vein, profunda vein, proximal portion of the greater saphenous vein, superficial femoral vein, and the popliteal vein. FINDINGS: Normal 2-D Doppler and augmentation and compressibility throughout the lower extremity venous structures. Additional imaging through the proximal calf veins also reveals no thrombus. Limited evaluation of the greater saphenous vein is patent with no thrombus. CONCLUSIONS No evidence of right lower extremity DVT. No evidence of left lower extremity DVT. Raj Dyson MD (Electronically Signed) Final Date: 23 January 2023 11:07 S
== END 2023-01-22 14:06 | disposition home or self-care (01) ==
LOC: RAD 14:07
PROVIDERS: PCP Internal Medicine; Visit Provider Internal Medicine Medical Oncology
DX: Z86.718 Personal history of other venous thrombosis and embolism (principal); Z86.711 Personal history of pulmonary embolism
CPT/HCPCS: 93970

== ENCOUNTER → 2023-01-30 12:47 | Outpatient (BNVA) | payer MEDICARE, MEDICAID, SELFPAY | PROVIDERS: PCP Internal Medicine; Visit Provider Nurse Practitioner Family | DX: Z09 Encounter for follow-up examination after completed treatment for conditions other than malignant neoplasm (principal) | CPT/HCPCS: 99213 ==

== ENCOUNTER 2023-02-12 13:33 | Oncology outpatient (recurring) (ONCR) | payer MEDICARE, MEDICAID, SELFPAY ==
[2023-02-12 14:33] LABS: Basophils # 0.1 10^3/uL (0.0-0.1); Basophils % 1.3 %; Eosinophils # 0.2 10^3/uL (0.0-0.8); Hematocrit 34.8 % (36-47); Lymphocytes # 2.1 10^3/uL (0.8-4.8); Lymphocytes % 34.8 %; Mean Corpuscular HGB Conc 31.9 g/dL (30-55); Mean Corpuscular Hemoglobin 29.8 pg (27-33); Mean Corpuscular Volume 93.3 fl (85-98); Mean Platelet Volume 11.1 fL (7.4-10.4); Monocytes # 0.5 10^3/uL (0.2-0.9); Monocytes % 7.6 %; Neutrophils # 3.21 10^3/uL (1.8-7.7); Nucleated Red Blood Cells % 0 %; Platelet Count 225 10^3/cmm (157-399); Red Blood Count 3.73 10^6/uL (3.85-5.65); Red Cell Distribution Width 13.5 % (12.1-15.1); White Blood Count 6.06 10^3/uL (3.29-11.43)
[2023-02-12 14:55] LABS: Alanine Aminotransferase 13 U/L (0-33); Albumin Level 4.2 g/dL (3.5-5.2); Alkaline Phosphatase 152 U/L (35-105); Anion Gap 12.6 (5-19); Aspartate Amino Transferase 20 U/L (0-32); Blood Urea Nitrogen 19 mg/dL (8-23); C Reactive Protein 9.2 mg/L (0.0-4.9); Calcium 9.2 mg/dL (8.5-10.5); Carbon Dioxide 25 mmol/L (22-29); Chloride 103 mmol/L (98-107); Globulin 3.1 g/dL (1.3-4.6); Glucose 82 mg/dL (65-115); Osmolality Calculated 285 mOsm/kg (285-295); Potassium 3.6 mmol/L (3.5-5.1); Sodium 137 mmol/L (136-145); Total Bilirubin 0.4 mg/dL (0.15-1.2); Total Protein 7.3 g/dL (6.6-8.7)
[2023-02-12 14:57] LABS: D Dimer 0.97 ug/mLFEU (0-0.59)
[2023-02-12 15:12] LABS: Erythrocyte Sedimentation Rate 32 mm/hr (0-15)
== END 2023-03-06 23:59 | disposition home or self-care (01) ==
PROVIDERS: PCP Internal Medicine; Visit Provider Internal Medicine Medical Oncology
DX: I26.99 Other pulmonary embolism without acute cor pulmonale (principal); D50.0 Iron deficiency anemia secondary to blood loss (chronic); R57.1 Hypovolemic shock; Z79.01 Long term (current) use of anticoagulants; Z79.899 Other long term (current) drug therapy; Z53.9 Procedure and treatment not carried out, unspecified reason
CPT/HCPCS: 36415; 80053; 85025; 85378; 85651; 86140; 99214

== ENCOUNTER 2023-04-12 12:41 | Oncology outpatient (recurring) (ONCR) | payer MEDICARE, MEDICAID, SELFPAY ==
[2023-04-12 13:10] VITALS: BP 150/69; PULSE 81; RESP 16; TEMP 36.3; O2SAT 97
[2023-04-12 13:18] LABS: Basophils # 0.1 10^3/uL (0.0-0.1); Basophils % 1.4 %; Eosinophils # 0.1 10^3/uL (0.0-0.8); Eosinophils % 2.2 %; Hematocrit 36.8 % (36-47); Lymphocytes # 1.7 10^3/uL (0.8-4.8); Lymphocytes % 26.4 %; Mean Corpuscular HGB Conc 31.5 g/dL (30-55); Mean Platelet Volume 11.5 fL (7.4-10.4); Monocytes # 0.4 10^3/uL (0.2-0.9); Monocytes % 6.7 %; Neutrophils # 4.03 10^3/uL (1.8-7.7); Nucleated Red Blood Cells % 0 %; Platelet Count 241 10^3/cmm (157-399)
[2023-04-12 13:31] LABS: D Dimer 0.84 ug/mLFEU (0-0.59)
[2023-04-12 13:34] LABS: Alanine Aminotransferase 10 U/L (0-33); Albumin Level 4.1 g/dL (3.5-5.2); Alkaline Phosphatase 148 U/L (35-105); Anion Gap 16.1 (5-19); Aspartate Amino Transferase 20 U/L (0-32); Blood Urea Nitrogen 17 mg/dL (8-23); Calcium 9.5 mg/dL (8.5-10.5); Carbon Dioxide 22 mmol/L (22-29); Chloride 106 mmol/L (98-107); Globulin 3.2 g/dL (1.3-4.6); Glucose 145 mg/dL (65-115); Osmolality Calculated 294 mOsm/kg (285-295); Potassium 4.1 mmol/L (3.5-5.1); Sodium 140 mmol/L (136-145); Total Bilirubin 0.5 mg/dL (0.15-1.2); Total Protein 7.3 g/dL (6.6-8.7)
== END 2023-05-06 23:59 | disposition home or self-care (01) ==
PROVIDERS: Internal Medicine; PCP Internal Medicine; Visit Provider Internal Medicine Medical Oncology
DX: I26.99 Other pulmonary embolism without acute cor pulmonale (principal); D50.0 Iron deficiency anemia secondary to blood loss (chronic); R57.1 Hypovolemic shock; Z79.01 Long term (current) use of anticoagulants; Z79.899 Other long term (current) drug therapy
CPT/HCPCS: 36415; 80053; 85025; 85378; 99214

== ENCOUNTER → 2023-05-09 10:59 | Outpatient (BNVA) | payer MEDICARE, MEDICAID, SELFPAY | PROVIDERS: PCP Internal Medicine; Visit Provider Internal Medicine Rheumatology | DX: M19.90 Unspecified osteoarthritis, unspecified site (principal); Z79.899 Other long term (current) drug therapy; M45.6 Ankylosing spondylitis lumbar region; M41.86 Other forms of scoliosis, lumbar region; M19.042 Primary osteoarthritis, left hand; M19.041 Primary osteoarthritis, right hand; M21.611 Bunion of right foot | CPT/HCPCS: 72100; 73130; 73630; 99204 ==

== ENCOUNTER 2023-05-19 15:59 | Emergency (ER) | payer MEDICARE, MEDICAID, SELFPAY ==
[2023-05-19 16:05] VITALS: BP 222/102; PULSE 73; RESP 17; TEMP 36.7; O2SAT 99; BMI 29.9
--- NOTE | 2023-05-19 16:07 | ECG_ITS ---
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 Measurements Intervals [place] Rate: 59 P: 64 CO: 151 QRS: -27 QRSD: 79 T: 44 QT: 395 QTc: 392 Interpretive Statements SINUS BRADYCARDIA LOW QRS VOLTAGE IN PRECORDIAL LEADS [QRS DEFLECTION < 1.0 mV IN CHEST LEADS] POSSIBLE ANTERIOR MYOCARDIAL INFARCTION , PROBABLY OLD [30 ms Q WAVE IN V3/V4, OR R < 0.2 mV IN V4] Compared to ECG 06/03/2022 18:20:10 Low QRS voltage now present Sinus rhythm no longer present Left anterior fascicular block no longer present Myocardial infarct finding still present Electronically Signed On 05-21-2023 7:56:57 PROGRAM SUPERVISOR by Rasta Akins M.D. [id number]
--- NOTE | 2023-05-19 16:09 | XRR_ITS ---
PROCEDURE INFORMATION: Exam: XR Chest Exam date and time: 05/19/2023 4:32 PM Age: 73 years old Clinical indication: Chest wall pain; Patient HX: Chest pain; Chest pressure TECHNIQUE: Imaging protocol: Radiologic exam of the chest. Views: 1 view. COMPARISON: CT angio chest PE protcl [id number] 08/22/2022 6:40 AM FINDINGS: Lungs: Unremarkable. No consolidation. Pleural spaces: Unremarkable. No pleural effusion. No pneumothorax. Small amount of chronic apical pleural thickening with prior exam. Heart/Mediastinum: Unremarkable. No cardiomegaly. Bones/joints: Visualized osseous structures show no acute abnormality. Other findings: No significant change with previous exam. XR/XR chest 1V portable [id number] IMPRESSION: No acute cardiopulmonary abnormality.
[2023-05-19] MEDS: aspirin 81 mg Chew Tablet 324 MG PO (16:15)
--- NOTE | 2023-05-19 16:15 | W.ED.CHESTPA ---
Documented by User: Tal Martínez DO 05/19/23 18:40 HPI - Chest Pain General: Chief Complaint: Chest Pain Stated Complaint: pressure on chest, headache Time Seen by Provider: 05/19/23 16:07 Source: patient Mode of arrival: ambulatory History of Present Illness: 73-year-old female presents emergency room with complaint of chest pain. She has a known history of coronary disease several years ago had a LAD stent. She has had 1 stress test since then that was normal that was precipitated episodes of chest pain as well. Blood pressure is markedly elevated today when she arrives here. She has a history of PEs he has not had any shortness of breath all of the chest pain is in the left side of the chest radiating laterally into the axilla nothing into the neck arms or back. She is on Xarelto for PEs and has not missed any doses recently. She also does take aspirin daily. Patient had a inferior vena cava filter placed in May of last year subsequently removed in January of last year. She is still on Xarelto. A year ago when she had the GI bleed and the IVC filter was placed she stopped all of her blood pressure medications and they have not been restarted. complaint: chest pain Onset (ago): hour(s) Timing of current episode: episodic Onset: during rest Pain location: left chest Pain radiation: none Severity: mild Relieving factors: nothing Associated symptoms: Deny abdominal pain, dyspnea or fever(s) Review of Systems Const: Denies: fever(s) or chills Card: Denies: chest pain Resp: Denies: dyspnea GI: Denies: abdominal pain : Denies: dysuria, urinary frequency or urinary urgency Musc: Denies: neck pain or back pain Skin/Breast: Denies: rash PFS ED PFSH: Medical History (Updated 05/19/23 @ 20:06 by Filippo Ham DO) Immunization counseling High risk medication use Inflammatory arthritis History of deep vein thrombosis (DVT) of lower extremity Left lower extremity deep vein thrombosis History of anemia Hyperlipidemia History of placement of stent in LAD coronary artery Chronic kidney disease (CKD) Essential (primary) hypertension Plantar fasciitis Carotid stenosis GERD (gastroesophageal reflux disease) Asthma Surgical History Hx of bilateral cataract extraction Hx of colonoscopy 4-5 yrs ago History of inferior vena caval filter placement retrieved 01/09/23 History of ventral hernia repair (2021) With mesh History of ventral hernia repair (2016) History of cholecystectomy (2015) Cholecystectomy with abdominal hernia repair History of tubal ligation History of heart artery stent (2014) Family History Other Dementia Hypertension Denies family history of Diabetes CAD (coronary artery disease) Clotting disorder Hyperlipidemia Psychiatric illness Chronic kidney disease (CKD) Suicide Anesthesia complication Bleeding disorder Family history of premature coronary artery disease Lung disease Cancer Stroke Social History Smoking and tobacco/nicotine status: never used tobacco/nicotine Alcohol intake: current Alcohol intake frequency: holidays/special occasions only Substance/Drug Use: never Marital status: Single Current occupational status: retired Physical Exam Const: GENERAL APPEARANCE: cooperative and comfortable ORIENTATION/CONSCIOUSNESS: Yes awake, Yes oriented to person, Yes oriented to place and Yes oriented to time HENMT: COMMON NORMALS: normocephalic, atraumatic and hearing grossly normal bilaterally HEAD & SCALP: normocephalic and atraumatic Resp: COMMON NORMALS: normal respiratory effort, No retractions, No use of accessory muscles and clear to auscultation bilaterally AUSCULTATION: clear to auscultation bilaterally Cardio: COMMON NORMALS: regular rate, regular rhythm and No murmurs present (Cardio) RATE: regular rate RHYTHM: regular rhythm GI: COMMON NORMALS: Soft to palpation and No hepatosplenomegaly present AUSCULTATION: Yes normoactive bowel sounds PALPATION: Yes Soft to palpation, No Tenderness to palpation present (GI), No Guarding due to palpation present (GI) and Yes No hepatosplenomegaly present Extremity: COMMON NORMALS: normal to inspection, capillary refill normal, no clubbing, cyanosis or edema, no calf tenderness and no pedal edema Neuro: SENSORIUM/ORIENTATION: Yes oriented to person, Yes oriented to place and Yes oriented to time Skin: COMMON NORMALS: no rashes or lesions noted GENERAL SKIN EXAM: no rashes or lesions noted Course Vital Signs: Vital signs: Vital Signs Temperature 98.1 F 05/19/23 16:05 Pulse Rate 75 05/19/23 18:30 Respiratory Rate 17 05/19/23 16:05 Blood Pressure 161/69 05/19/23 20:23 Pulse Oximetry 96 05/19/23 18:30 Oxygen Delivery Me thod Room Air 05/19/23 18:30 MDM - Chest Pain Medical Decision Making Care signed out to Dr. Ham at change of shift. See final notes for diagnosis and disposition. Lab Data 05/19/23 16:16 05/19/23 16:16 Radiology Impressions Chest X-Ray 05/19/23 16:09 IMPRESSION: No acute cardiopulmonary abnormality. Head CT 05/19/23 18:37 IMPRESSION: No acute intracranial abnormality. Laboratory Results WBC 8.97 10^3/uL (3.29-11.43) 05/19/23 16:16 RBC 4.23 10^6/uL (3.85-5.65) 05/19/23 16:16 Hgb 12.40 g/dL (11.27-16.99) 05/19/23 16:16 Hct 38.1 % (36-47) 05/19/23 16:16 MCV 90.1 fl (85-98) 05/19/23 16:16 MCH 29.3 pg (27-33) 05/19/23 16:16 MCHC 32.5 g/dL (30-55) 05/19/23 16:16 RDW 13.7 % (12.1-15.1) 05/19/23 16:16 Plt Count 241 10^3/cmm (157-399) 05/19/23 16:16 MPV 11.3 fL (7.4-10.4) H 05/19/23 16:16 Neut % (Auto) 78.8 % 05/19/23 16:16 Lymph % (Auto) 16.2 % 05/19/23 16:16 [place] % (Auto) 3.9 % 05/19/23 16:16 Eos % (Auto) 0.0 % 05/19/23 16:16 Baso % (Auto) 0.2 % 05/19/23 16:16 Neut # (Auto) 7.07 10^3/uL (1.8-7.7) 05/19/23 16:16 Lymph # (Auto) 1.5 10^3/uL (0.8-4.8) 05/19/23 16:16 [place] # (Auto) 0.4 10^3/uL (0.2-0.9) 05/19/23 16:16 Eos # (Auto) 0.0 10^3/uL (0.0-0.8) 05/19/23 16:16 Baso # (Auto) 0.0 10^3/uL (0.0-0.1) 05/19/23 16:16 Nucleated RBC % (auto) 0 % 05/19/23 16:16 Nucleated RBCs # 0.0 /100WBC 05/19/23 16:16 Sodium 136 mmol/L (136-145) 05/19/23 16:16 Potassium 3.4 mmol/L (3.5-5.1) L 05/19/23 16:16 Chloride 100 mmol/L (98-107) 05/19/23 16:16 Carbon Dioxide 22 mmol/L (22-29) 05/19/23 16:16 Anion Gap 17.4 (5-19) 05/19/23 16:16 BUN 24 mg/dL (8-23) H 05/19/23 16:16 Creatinine 1.2 mg/dL (0.5-0.9) H 05/19/23 16:16 GFR Calculation Not Reportable 05/19/23 16:16 Glucose 129 mg/dL (65-115) H 05/19/23 16:16 Calculated Osmolality 288 mOsm/kg (285-295) 05/19/23 16:16 Calcium 9.6 mg/dL (8.5-10.5) 05/19/23 16:16 Total Bilirubin 0.3 mg/dL (0.15-1.2) 05/19/23 16:16 AST 24 U/L (0-32) 05/19/23 16:16 ALT 18 U/L (0-33) 05/19/23 16:16 Alkaline Phosphatase 149 U/L (35-105) H 05/19/23 16:16 Troponin T Baseline 12 ng/L (0-10) H 05/19/23 16:16 Troponin T 120 Minute 10.00 ng/L (0-10) 05/19/23 17:55 Delta Troponin T -2.00 ABS# (0-10) L 05/19/23 17:55 Total Protein 7.5 g/dL (6.6-8.7) 05/19/23 16:16 Albumin 4.4 g/dL (3.5-5.2) 05/19/23 16:16 Globulin 3.1 g/dL (1.3-4.6) 05/19/23 16:16 Urine Color Straw (Yellow) 05/19/23 16:36 Urine Appearance Clear (CLEAR) 05/19/23 16:36 Urine pH 5 (5-7) 05/19/23 16:36 Ur Specific [place] 1.010 (1.005-1.030) 05/19/23 16:36 Urine Protein Neg (Negative) 05/19/23 16:36 Urine Glucose (UA) Norm (Normal) 05/19/23 16:36 Urine Ketones Negative (Negative) 05/19/23 16:36 Urine Blood Neg (Negative) 05/19/23 16:36 Urine Nitrate Negative (Negative) 05/19/23 16:36 Urine Bilirubin Neg (Negative) 05/19/23 16:36 Urine Urobilinogen Norm mg/dL (Negative) 05/19/23 16:36 Ur Leukocyte Esterase Negative (Negative) 05/19/23 16:36 XR interpretation done by ED provider, pending radiology final review Discharge Plan Discharge Patient Disposition: Home Clinical Impression: Chest pain, Hypertensive urgency Condition: Stable Prescriptions: New metoprolol tartrate 25 mg tablet 25 mg PO BID Qty: 60 0RF lisinopril 10 mg tablet 10 mg PO DAILY Qty: 30 0RF No Action docusate sodium 100 mg capsule 100 mg PO DAILY aspirin [Adult Aspirin Regimen] 81 mg tablet,delayed release (DR/EC) 81 mg PO DAILY@0800 fluticasone propionate [Flonase Allergy Relief] 50 mcg/actuation spray,suspension 2 spray INTRANASAL DAILY@0800 Rx Instructions: administer into each nostril simvastatin 80 mg tablet 40 mg PO QPM Zyrtec 10 mg capsule 10 mg PO QPM prednisone 10 mg tablet See Rx Instructions .Route .COMPLEX Qty: 90 1RF Rx Instructions: 3 tabs daily x5days, then 2 tabs QD x5days, 1.5tab x5days, 1 tab QD x14 days then stay on 0.5 tab daily til next appt. ; leflunomide 20 mg tablet 20 mg PO DAILY Qty: 30 3RF pantoprazole 40 mg tablet,delayed release (DR/EC) 40 mg PO BID ondansetron 8 mg tablet,disintegrating 8 mg PO Q8H PRN (Reason: nausea and vomiting) Qty: 20 0RF nitroglycerin [Nitrostat] 0.4 mg tablet, sublingual 0.4 mg SUBLINGUAL Q5M PRN (Reason: CHEST PAINS) Qty: 25 3RF Rx Instructions: do not exceed 3 doses per episode albuterol sulfate 90 mcg/actuation HFA aerosol inhaler 1 puff INHALATION QID PRN (Reason: SHORTNESS OF BREATH/WHEEZING) Qty: 8.5 0RF budesonide-formoterol [Symbicort] 160-4.5 mcg/actuation HFA aerosol inhaler 2 puff INHALATION BID@0800,2000 Singulair 10 mg tablet 10 mg PO QPM Xarelto 15 mg tablet 15 mg PO QPM Discharge Orders: Discharge ED (Routine); Ordered 05/19/23 Ordered By: Filippo Ham Referrals: William Marie DO [Primary Care Provider] - Patient Instructions: Chest Pain (ED), Hypertension (ED), Opioid Safety, Pain Management Activity Restrictions/Additional Instructions: Take your blood pressure twice daily. Begin metoprolol only. If after 2-3 days, your blood pressure is not below 140/90, you may add lisinopril. Return for repeated episodes of chest pain, inability to control blood pressure at home despite medication, vomiting liquids or medication, worsening headache, mental status changes, any other concerning symptoms. See your doctor next week, and show them a log of your blood pressures. Coding Level of Care Code ED Counterintelligence Agent for Chg Fwd Documented by User: Filippo Ham DO 05/19/23 21:47 HPI - Chest Pain General: Chief Complaint: Chest Pain Stated Complaint: pressure on chest, headache Time Seen by Provider: 05/19/23 16:07 PFSH ED PFSH: Medical History (Updated 05/19/23 @ 20:06 by Filippo Ham DO) Immunization counseling High risk medication use Inflammatory arthritis History of deep vein thrombosis (DVT) of lower extremity Left lower extremity deep vein thrombosis History of anemia Hyperlipidemia History of placement of stent in LAD coronary artery Chronic kidney disease (CKD) Essential (primary) hypertension Plantar fasciitis Carotid stenosis GERD (gastroesophageal reflux disease) Asthma Surgical History Hx of bilateral cataract extraction Hx of colonoscopy 4-5 yrs ago History of inferior vena caval filter placement retrieved 01/09/23 History of ventral hernia repair (2021) With mesh History of ventral hernia repair (2016) History of cholecystectomy (2015) Cholecystectomy with abdominal hernia repair History of tubal ligation History of heart artery stent (2014) Family History Other Dementia Hypertension Denies family history of Diabetes CAD (coronary artery disease) Clotting disorder Hyperlipidemia Psychiatric illness Chronic kidney disease (CKD) Suicide Anesthesia complication Bleeding disorder Family history of premature coronary artery disease Lung disease Cancer Stroke Social History Smoking and tobacco/nicotine status: never used tobacco/nicotine Alcohol intake: current Alcohol intake frequency: holidays/special occasions only Substance/Drug Use: never Marital status: Single Current occupational status: retired Course Vital Signs: Vital signs: Vital Signs Temperature 98.1 F 05/19/23 16:05 Pulse Rate 75 05/19/23 18:30 Respiratory Rate 17 05/19/23 16:05 Blood Pressure 161/69 05/19/23 20:23 Pulse Oximetry 96 05/19/23 18:30 Oxygen Delivery Me thod Room Air 05/19/23 18:30 MDM - Chest Pain Medical Decision Making Care signed out to Dr. Ham at change of shift. See final notes for diagnosis and disposition. Received in checkout at shift change. This lady has had chest discomfort, and quite high blood pressure. Chest pain is gone, dizziness and weakness is gone following control of her blood pressure. CBC is normal. BMP shows a BUN of 24 with a creatinine of 1.2. Her troponins are negative at 0 [address] is negative. Chest x-ray is normal. She is wishing to go home. With resolution of her pain, following control of her blood pressure, will allow this. Close outpatient follow-up. Treat blood pressure as directed. Lab Data 05/19/23 16:16 05/19/23 16:16 Radiology Impressions Chest X-Ray 05/19/23 16:09 IMPRESSION: No acute cardiopulmonary abnormality. Head CT 05/19/23 18:37 IMPRESSION: No acute intracranial abnormality. Laboratory Results WBC 8.97 10^3/uL (3.29-11.43) 05/19/23 16:16 RBC 4.23 10^6/uL (3.85-5.65) 05/19/23 16:16 Hgb 12.40 g/dL (11.27-16.99) 05/19/23 16:16 Hct 38.1 % (36-47) 05/19/23 16:16 MCV 90.1 fl (85-98) 05/19/23 16:16 MCH 29.3 pg (27-33) 05/19/23 16:16 MCHC 32.5 g/dL (30-55) 05/19/23 16:16 RDW 13.7 % (12.1-15.1) 05/19/23 16:16 Plt Count 241 10^3/cmm (157-399) 05/19/23 16:16 MPV 11.3 fL (7.4-10.4) H 05/19/23 16:16 Neut % (Auto) 78.8 % 05/19/23 16:16 Lymph % (Auto) 16.2 % 05/19/23 16:16 [place] % (Auto) 3.9 % 05/19/23 16:16 Eos % (Auto) 0.0 % 05/19/23 16:16 Baso % (Auto) 0.2 % 05/19/23 16:16 Neut # (Auto) 7.07 10^3/uL (1.8-7.7) 05/19/23 16:16 Lymph # (Auto) 1.5 10^3/uL (0.8-4.8) 05/19/23 16:16 [place] # (Auto) 0.4 10^3/uL (0.2-0.9) 05/19/23 16:16 Eos # (Auto) 0.0 10^3/uL (0.0-0.8) 05/19/23 16:16 Baso # (Auto) 0.0 10^3/uL (0.0-0.1) 05/19/23 16:16 Nucleated RBC % (auto) 0 % 05/19/23 16:16 Nucleated RBCs # 0.0 /100WBC 05/19/23 16:16 Sodium 136 mmol/L (136-145) 05/19/23 16:16 Potassium 3.4 mmol/L (3.5-5.1) L 05/19/23 16:16 Chloride 100 mmol/L (98-107) 05/19/23 16:16 Carbon Dioxide 22 mmol/L (22-29) 05/19/23 16:16 Anion Gap 17.4 (5-19) 05/19/23 16:16 BUN 24 mg/dL (8-23) H 05/19/23 16:16 Creatinine 1.2 mg/dL (0.5-0.9) H 05/19/23 16:16 GFR Calculation Not Reportable 05/19/23 16:16 Glucose 129 mg/dL (65-115) H 05/19/23 16:16 Calculated Osmolality 288 mOsm/kg (285-295) 05/19/23 16:16 Calcium 9.6 mg/dL (8.5-10.5) 05/19/23 16:16 Total Bilirubin 0.3 mg/dL (0.15-1.2) 05/19/23 16:16 AST 24 U/L (0-32) 05/19/23 16:16 ALT 18 U/L (0-33) 05/19/23 16:16 Alkaline Phosphatase 149 U/L (35-105) H 05/19/23 16:16 Troponin T Baseline 12 ng/L (0-10) H 05/19/23 16:16 Troponin T 120 Minute 10.00 ng/L (0-10) 05/19/23 17:55 Delta Troponin T -2.00 ABS# (0-10) L 05/19/23 17:55 Total Protein 7.5 g/dL (6.6-8.7) 05/19/23 16:16 Albumin 4.4 g/dL (3.5-5.2) 05/19/23 16:16 Globulin 3.1 g/dL (1.3-4.6) 05/19/23 16:16 Urine Color Straw (Yellow) 05/19/23 16:36 Urine Appearance Clear (CLEAR) 05/19/23 16:36 Urine pH 5 (5-7) 05/19/23 16:36 Ur Specific [place] 1.010 (1.005-1.030) 05/19/23 16:36 Urine Protein Neg (Negative) 05/19/23 16:36 Urine Glucose (UA) Norm (Normal) 05/19/23 16:36 Urine Ketones Negative (Negative) 05/19/23 16:36 Urine Blood Neg (Negative) 05/19/23 16:36 Urine Nitrate Negative (Negative) 05/19/23 16:36 Urine Bilirubin Neg (Negative) 05/19/23 16:36 Urine Urobilinogen Norm mg/dL (Negative) 05/19/23 16:36 Ur Leukocyte Esterase Negative (Negative) 05/19/23 16:36 Discharge Plan Discharge Patient Disposition: Home Clinical Impression: Chest pain, Hypertensive urgency Condition: Stable Prescriptions: New metoprolol tartrate 25 mg tablet 25 mg PO BID Qty: 60 0RF lisinopril 10 mg tablet 10 mg PO DAILY Qty: 30 0RF No Action docusate sodium 100 mg capsule 100 mg PO DAILY aspirin [Adult Aspirin Regimen] 81 mg tablet,delayed release (DR/EC) 81 mg PO DAILY@0800 fluticasone propionate [Flonase Allergy Relief] 50 mcg/actuation spray,suspension 2 spray INTRANASAL DAILY@0800 Rx Instructions: administer into each nostril simvastatin 80 mg tablet 40 mg PO QPM Zyrtec 10 mg capsule 10 mg PO QPM prednisone 10 mg tablet See Rx Instructions .Route .COMPLEX Qty: 90 1RF Rx Instructions: 3 tabs daily x5days, then 2 tabs QD x5days, 1.5tab x5days, 1 tab QD x14 days then stay on 0.5 tab daily til next appt. ; leflunomide 20 mg tablet 20 mg PO DAILY Qty: 30 3RF pantoprazole 40 mg tablet,delayed release (DR/EC) 40 mg PO BID ondansetron 8 mg tablet,disintegrating 8 mg PO Q8H PRN (Reason: nausea and vomiting) Qty: 20 0RF nitroglycerin [Nitrostat] 0.4 mg tablet, sublingual 0.4 mg SUBLINGUAL Q5M PRN (Reason: CHEST PAINS) Qty: 25 3RF Rx Instructions: do not exceed 3 doses per episode albuterol sulfate 90 mcg/actuation HFA aerosol inhaler 1 puff INHALATION QID PRN (Reason: SHORTNESS OF BREATH/WHEEZING) Qty: 8.5 0RF budesonide-formoterol [Symbicort] 160-4.5 mcg/actuation HFA aerosol inhaler 2 puff INHALATION BID@0800,2000 Singulair 10 mg tablet 10 mg PO QPM Xarelto 15 mg tablet 15 mg PO QPM Discharge Orders: Discharge ED (Routine); Ordered 05/19/23 Ordered By: Filippo Ham Referrals: William Marie DO [Primary Care Provider] - Patient Instructions: Chest Pain (ED), Hypertension (ED), Opioid Safety, Pain Management Activity Restrictions/Additional Instructions: Take your blood pressure twice daily. Begin metoprolol only. If after 2-3 days, your blood pressure is not below 140/90, you may add lisinopril. Return for repeated episodes of chest pain, inability to control blood pressure at home despite medication, vomiting liquids or medication, worsening headache, mental status changes, any other concerning symptoms. See your doctor next week, and show them a log of your blood pressures. Coding Level of Care Code ED Counterintelligence Agent for Concetta Ashton
[2023-05-19 16:22] LABS: Basophils % 0.2 %; Hematocrit 38.1 % (36-47); Lymphocytes # 1.5 10^3/uL (0.8-4.8); Lymphocytes % 16.2 %; Mean Corpuscular HGB Conc 32.5 g/dL (30-55); Mean Corpuscular Hemoglobin 29.3 pg (27-33); Mean Corpuscular Volume 90.1 fl (85-98); Mean Platelet Volume 11.3 fL (7.4-10.4); Monocytes # 0.4 10^3/uL (0.2-0.9); Monocytes % 3.9 %; Neutrophils # 7.07 10^3/uL (1.8-7.7); Neutrophils % 78.8 %; Nucleated Red Blood Cells % 0 %; Platelet Count 241 10^3/cmm (157-399); Red Blood Count 4.23 10^6/uL (3.85-5.65); Red Cell Distribution Width 13.7 % (12.1-15.1); White Blood Count 8.97 10^3/uL (3.29-11.43)
[2023-05-19 16:39] LABS: Troponin(5th) Baseline 12 ng/L (0-10)
[2023-05-19 16:41] LABS: Alanine Aminotransferase 18 U/L (0-33); Albumin Level 4.4 g/dL (3.5-5.2); Alkaline Phosphatase 149 U/L (35-105); Anion Gap 17.4 (5-19); Aspartate Amino Transferase 24 U/L (0-32); Blood Urea Nitrogen 24 mg/dL (8-23); Calcium 9.6 mg/dL (8.5-10.5); Carbon Dioxide 22 mmol/L (22-29); Chloride 100 mmol/L (98-107); Globulin 3.1 g/dL (1.3-4.6); Glucose 129 mg/dL (65-115); Osmolality Calculated 288 mOsm/kg (285-295); Potassium 3.4 mmol/L (3.5-5.1); Sodium 136 mmol/L (136-145); Total Bilirubin 0.3 mg/dL (0.15-1.2); Total Protein 7.5 g/dL (6.6-8.7)
[2023-05-19 16:46] LABS: Add Urine Microscopic? NO; Charge for UA Resulting for Rev
[2023-05-19 16:50] LABS: Bilirubin Urine Neg (Negative); Blood Urine Neg (Negative); Glucose Urine UA Norm (Normal); Ketones Urine Negative (Negative); Leukocyte Esterase Urine Negative (Negative); Nitrate Urine Negative (Negative); Protein Urine Neg (Negative); Urine Appearance Clear (CLEAR); Urine Color Straw (Yellow); Urobilinogen Urine Norm (Negative); pH Urine 5 (5-7)
[2023-05-19 17:00] VITALS: BP 209/83; PULSE 60; O2SAT 95
[2023-05-19] MEDS: hyDRALAzine 20 mg/mL INJ 1 mL IVP (17:21)
[2023-05-19 17:30] VITALS: BP 159/66; PULSE 64; O2SAT 97
--- NOTE | 2023-05-19 18:09 | ECG_ITS ---
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 Measurements Intervals [place] Rate: 82 P: 66 MA: 160 QRS: -52 QRSD: 88 T: 59 QT: 389 QTc: 457 Interpretive Statements SINUS RHYTHM WITH SINUS ARRHYTHMIA LEFT ANTERIOR FASCICULAR BLOCK [QRS AXIS <= -45, QR IN I, RS IN II] POSSIBLE ANTERIOR MYOCARDIAL INFARCTION , PROBABLY OLD [30 ms Q WAVE IN V3/V4, OR R < 0.2 mV IN V4] Compared to ECG 05/19/2023 16:07:05 Left anterior fascicular block now present Sinus bradycardia no longer present Myocardial infarct finding still present Electronically Signed On 05-21-2023 8:04:54 CUT OUT PRESS OPERATOR by Rasta Akins M.D. [id number]
[2023-05-19 18:30] VITALS: BP 188/78; PULSE 75; O2SAT 96
--- NOTE | 2023-05-19 18:37 | CTR_ITS ---
PROCEDURE INFORMATION: Exam: CT Head Without Contrast Exam date and time: 05/19/2023 6:44 PM Age: 73 years old Clinical indication: Pain; Headache; Patient HX: C/O PETTY with hypertension. Anticoagulated. ; Additional info: Headache elevated bp/chronic anticoagulation TECHNIQUE: Imaging protocol: Computed tomography of the head without contrast. Radiation optimization: All CT scans at this facility use at least one of these dose optimization techniques: automated exposure control; mA and/or kV adjustment per patient size (includes targeted exams where dose is matched to clinical indication); or iterative reconstruction. COMPARISON: CT head wo con* [id number] 06/03/2022 3:31 PM RADIATION DOSE METRICS: Total DLP (mGy-cm): 1035.38 FINDINGS: Brain: Mild atrophic change. No intracranial hemorrhage or hematoma is seen. No mass effect or shift of midline structures. No findings of territorial or large vessel ischemic infarct. No significant change with prior exam. Cerebral ventricles: No significant ventriculomegaly. Paranasal sinuses: Visualized sinuses are unremarkable. No fluid levels. Mastoid air cells: Visualized mastoid air cells are well aerated. Bones/joints: Bone windows of the skull show no acute abnormality. Soft tissues: Unremarkable. CT/CT head wo con* [id number] IMPRESSION: No acute intracranial abnormality.
--- NOTE | 2023-05-19 20:02 | PC.NURSE ---
Pt. was walked to the end of the zarate and back to her room with no assistance and denied dizziness or weakness. Pt. states that she is ready to go home and eat.
[2023-05-19 20:23] VITALS: BP 161/69
== END 2023-05-19 20:24 | disposition home or self-care (01) ==
PROVIDERS: Family Medicine; Emergency Provider Emergency Medicine; PCP Internal Medicine
DX: R07.9 Chest pain, unspecified (principal); I16.0 Hypertensive urgency; Z79.82 Long term (current) use of aspirin; E78.5 Hyperlipidemia, unspecified; I12.9 Hypertensive chronic kidney disease with stage 1 through stage 4 chronic kidney disease, or unspecified chronic kidney disease; N18.9 Chronic kidney disease, unspecified
CPT/HCPCS: 36415; 70450; 71045; 80053; 81003; 84484; 85025; 93005; 96374; 99285; J0360

== ENCOUNTER → 2023-06-13 12:26 | Outpatient (BNVA) | payer MEDICARE, MEDICAID, SELFPAY | PROVIDERS: PCP Internal Medicine; Visit Provider Internal Medicine | DX: I25.10 Atherosclerotic heart disease of native coronary artery without angina pectoris (principal); Z95.5 Presence of coronary angioplasty implant and graft; I12.9 Hypertensive chronic kidney disease with stage 1 through stage 4 chronic kidney disease, or unspecified chronic kidney disease; N18.9 Chronic kidney disease, unspecified; Z98.890 Other specified postprocedural states; Z87.19 Personal history of other diseases of the digestive system; I65.29 Occlusion and stenosis of unspecified carotid artery; I26.99 Other pulmonary embolism without acute cor pulmonale; R07.89 Other chest pain | CPT/HCPCS: 99214 ==

== ENCOUNTER 2023-06-13 13:35 | Outpatient (CLI) | payer MEDICARE, MEDICAID, SELFPAY ==
[2023-06-13 14:09] LABS: Basophils # 0.1 10^3/uL (0.0-0.1); Basophils % 1.2 %; Eosinophils # 0.1 10^3/uL (0.0-0.8); Eosinophils % 1.1 %; Hematocrit 39.5 % (36-47); Lymphocytes # 1.4 10^3/uL (0.8-4.8); Mean Corpuscular HGB Conc 31.1 g/dL (30-55); Mean Corpuscular Hemoglobin 29.2 pg (27-33); Mean Corpuscular Volume 93.8 fl (85-98); Mean Platelet Volume 11.1 fL (7.4-10.4); Monocytes # 0.5 10^3/uL (0.2-0.9); Monocytes % 6.7 %; Neutrophils # 5.87 10^3/uL (1.8-7.7); Neutrophils % 73.3 %; Nucleated Red Blood Cells % 0 %; Platelet Count 244 10^3/cmm (157-399); Red Blood Count 4.21 10^6/uL (3.85-5.65); Red Cell Distribution Width 14.1 % (12.1-15.1); White Blood Count 8.02 10^3/uL (3.29-11.43)
[2023-06-13 14:30] LABS: Alanine Aminotransferase 14 U/L (0-33); Alkaline Phosphatase 164 U/L (35-105); Aspartate Amino Transferase 17 U/L (0-32); C Reactive Protein 10.4 mg/L (0.0-4.9); Globulin 3.5 g/dL (1.3-4.6); Total Bilirubin 0.5 mg/dL (0.15-1.2); Total Protein 7.5 g/dL (6.6-8.7)
[2023-06-13 14:56] LABS: Hepatitis B Core AB, Total Non-Reactive (Nonreactive); Hepatitis B Surface Antigen Non-Reactive (Nonreactive); Hepatitis C Virus Antibody Non-Reactive (Nonreactive)
[2023-06-14 21:05] LABS: HLA-B27 NEGATIVE (NEGATIVE)
[2023-06-18 11:14] LABS: Quantiferon Mitogen >10.00 IU/mL; Quantiferon Nil 0.02 IU/mL; Quantiferon TB Gold NEGATIVE (NEGATIVE)
[2023-06-19 20:44] LABS: Mutated Citrullinated Vimentin <20 U/mL (<20)
== END 2023-06-13 13:36 | disposition home or self-care (01) ==
LOC: LAB 13:35
PROVIDERS: PCP Internal Medicine; Visit Provider Internal Medicine Rheumatology
DX: Z79.899 Other long term (current) drug therapy (principal); M19.90 Unspecified osteoarthritis, unspecified site; M45.6 Ankylosing spondylitis lumbar region; Z11.59 Encounter for screening for other viral diseases; Z11.1 Encounter for screening for respiratory tuberculosis
CPT/HCPCS: 36415; 80076; 82565; 83520; 85025; 86140; 86431; 86480; 86704; 86803; 86812; 87340

== ENCOUNTER → 2023-06-20 13:48 | Outpatient (BNVA) | payer MEDICARE, MEDICAID, SELFPAY | PROVIDERS: PCP Internal Medicine; Visit Provider Internal Medicine Pulmonary Disease | DX: J45.909 Unspecified asthma, uncomplicated (principal); I26.99 Other pulmonary embolism without acute cor pulmonale; Z95.5 Presence of coronary angioplasty implant and graft; R09.82 Postnasal drip; M19.90 Unspecified osteoarthritis, unspecified site | CPT/HCPCS: 99214 ==

== ENCOUNTER 2023-07-12 13:24 | Oncology outpatient (recurring) (ONCR) | payer MEDICARE, MEDICAID, SELFPAY ==
[2023-07-12 16:10] LABS: Basophils # 0.1 10^3/uL (0.0-0.1); Basophils % 1.3 %; Eosinophils % 0.2 %; Hematocrit 38.6 % (36-47); Lymphocytes # 1.2 10^3/uL (0.8-4.8); Lymphocytes % 13.5 %; Mean Corpuscular HGB Conc 31.3 g/dL (30-55); Mean Corpuscular Hemoglobin 29.3 pg (27-33); Mean Corpuscular Volume 93.5 fl (85-98); Mean Platelet Volume 11.7 fL (7.4-10.4); Monocytes # 0.5 10^3/uL (0.2-0.9); Monocytes % 5.3 %; Neutrophils # 6.88 10^3/uL (1.8-7.7); Neutrophils % 79.4 %; Nucleated Red Blood Cells % 0 %; Platelet Count 197 10^3/cmm (157-399); Red Blood Count 4.13 10^6/uL (3.85-5.65); Red Cell Distribution Width 14.6 % (12.1-15.1); White Blood Count 8.67 10^3/uL (3.29-11.43)
[2023-07-12 16:27] LABS: D Dimer 0.66 ug/mLFEU (0-0.59)
[2023-07-12 16:29] LABS: Erythrocyte Sedimentation Rate 29 mm/hr (0-15)
[2023-07-12 16:39] LABS: Alanine Aminotransferase 12 U/L (0-33); Albumin Level 4.1 g/dL (3.5-5.2); Alkaline Phosphatase 152 U/L (35-105); Anion Gap 14.6 (5-19); Aspartate Amino Transferase 18 U/L (0-32); Blood Urea Nitrogen 16 mg/dL (8-23); C Reactive Protein 3.4 mg/L (0.0-4.9); Calcium 9.4 mg/dL (8.5-10.5); Carbon Dioxide 24 mmol/L (22-29); Chloride 107 mmol/L (98-107); Creatinine Clr Calc Pharmacy 60.5333; Globulin 3.2 g/dL (1.3-4.6); Glucose 113 mg/dL (65-115); Iron 51 ug/dL (37-145); Osmolality Calculated 294 mOsm/kg (285-295); Percent Saturation 17.7 % (20-50); Potassium 4.6 mmol/L (3.5-5.1); Sodium 141 mmol/L (136-145); Total Bilirubin 0.4 mg/dL (0.15-1.2); Total Iron Binding Capacity 287 mcg/dl; Total Protein 7.3 g/dL (6.6-8.7); Unsaturated Iron Binding 236 ug/dL (112-347)
[2023-07-12 16:53] LABS: Vitamin B12 354 pg/mL (232-1245)
[2023-07-15 03:55] LABS: Beta 2 Glycoprotein IGA <2.0 U/mL (<20.0); Beta 2 Glycoprotein IGG <2.0 U/mL (<20.0); Beta 2 Glycoprotein IGM <2.0 U/mL (<20.0)
[2023-07-16 06:16] LABS: CARDIOLIPIN AB (IGA) <2.0 APL-U/mL; CARDIOLIPIN AB (IGG) <2.0 GPL-U/mL; CARDIOLIPIN AB (IGM) <2.0 MPL-U/mL
== END 2023-08-05 23:59 | disposition home or self-care (01) ==
PROVIDERS: PCP Internal Medicine; Visit Provider Internal Medicine Medical Oncology
DX: I26.99 Other pulmonary embolism without acute cor pulmonale (principal); Z79.01 Long term (current) use of anticoagulants; Z79.899 Other long term (current) drug therapy; M25.50 Pain in unspecified joint; R53.83 Other fatigue; I10 Essential (primary) hypertension; Z95.828 Presence of other vascular implants and grafts; D64.9 Anemia, unspecified
CPT/HCPCS: 36415; 80053; 81241; 82607; 83540; 83550; 85025; 85210; 85378; 85651; 86140; 86146; 86147; 99214

== ENCOUNTER 2023-07-13 08:42 | Outpatient (CLI) | payer MEDICARE, MEDICAID, SELFPAY ==
--- NOTE | 2023-07-13 09:40 | ECG_ITS ---
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 Interpretive Statements NAME OF STUDY: LEXISCAN SESTAMIBI STRESS TEST INDICATION: [Chest Pain; Shortness of Breath, ] Procedure: At the baseline, the blood pressure was 142/59 mmHg with a heart rate of 61 bpm. The electrocardiogram showed normal sinus rhythm, left axis deviation with normal ST and T's. The Lexiscan was infused over a period of 20 seconds. A total of 0.4 mg of Lexiscan was infused. The stress phase was continued for a total of 5 minutes. Heart rate was at the end of stress phase was 88 bpm and a blood pressure of 153/57 mmHg. The EKG at the peak infusion revealed normal sinus rhythm with no significant ST-T wave changes. Sestamibi was injected 20 seconds after the Lexiscan infusion. Blood pressure at the end of recovery phase was 156/65 mmHg with a heart rate of 76 bpm. Conclusion: 1. Normal EKG response to Lexiscan infusion 2. No Lexiscan induced chest pain or cardiac arrhythmia. 3. Normal blood pressure and heart rate response. 4. Sestamibi/sestamibi perfusion scan pending; see separate report. Electronically Signed On 07-19-2023 11:09:37 CDT by Rasta Akins M.D. [id number]
--- NOTE | 2023-07-13 09:40 | NMCV_ITS ---
NM arun perf SPECT r/s* [id number] Denise Sanches Age: 73 Gender: F : 1950 Exam Date: 07/13/2023 09:40 Ordering Phys: Rasta Akins M.D ([email or web address]) Technologist: AKHIL Niño Exam Location: [facility] Indications: CHEST PAIN STRESS TEST Please see separate stress test report in [facility] for full findings IMAGE PROTOCOL Rest/Stress 1 Lexiscan Day Radiopharmaceutical Dose (mCi) Administration Site Administered by Rest: Tc-99m 10.3 IV AKHIL Macedo Sestamibi Stress:Tc-99m 32.5 IV AKHIL Macedo Sestamibi Rest: 13-Jul-2023 60 Discovery 630 Stress: 13-Jul-2023 30 Discovery 630 0.4mg Lexiscan. Supine position only as patient was unable to lay prone. SPECT RESULTS Technical Quality: Excellent Raw Data Analysis: Normal Image Corrections: No attenuation or motion correction applied Summed Stress Score: 0 Summed Rest Score: 0 Summed Difference Score: 0 PERFUSION FINDINGS SPECT images demonstrate homogeneous tracer distribution throughout the myocardium. FUNCTIONAL RESULTS (calculated via Gated SPECT) Stress Image LV EF (%): 73 Stress EDV (mL):41 TID: 0.95 Stress ESV (mL):11 FUNCTIONAL FINDINGS: There is normal left ventricular systolic function. IMPRESSIONS 1. Normal myocardial perfusion imaging with no evidence of ischemia 2. LV systolic function is normal Rasta Akins MD (Electronically Signed) Final Date: 17 July 2023 09:59 S
[2023-07-13 09:41] VITALS: BMI 31.9
[2023-07-13] MEDS: regadenoson 0.4 Mg/5 ml Syringe 0.400000000000000022 MG IVP (10:26)
[2023-07-13] MEDS: aminophylline 25 mg/mL SDV 10 mL IVP (10:39)
[2023-07-13 11:40] VITALS: BP 156/65; PULSE 86
== END 2023-07-13 08:43 | disposition home or self-care (01) ==
PROVIDERS: PCP Internal Medicine; Visit Provider Internal Medicine
DX: R07.9 Chest pain, unspecified (principal)
CPT/HCPCS: 36415; 78452; 93017; 96374; 96375; A9500; J0280; J2785

== ENCOUNTER → 2023-08-22 14:10 | Outpatient (BNVA) | payer MEDICARE, MEDICAID, SELFPAY | PROVIDERS: PCP Internal Medicine; Visit Provider Internal Medicine Rheumatology | DX: Z79.899 Other long term (current) drug therapy (principal); Z71.85 Encounter for immunization safety counseling; I26.99 Other pulmonary embolism without acute cor pulmonale; M06.041 Rheumatoid arthritis without rheumatoid factor, right hand; M06.042 Rheumatoid arthritis without rheumatoid factor, left hand | CPT/HCPCS: 99214 ==

== ENCOUNTER 2023-09-03 10:44 | Oncology outpatient (recurring) (ONCR) | payer MEDICARE, MEDICAID, SELFPAY ==
[2023-09-03 11:09] LABS: Basophils # 0.1 10^3/uL (0.0-0.1); Basophils % 1.2 %; Eosinophils # 0.1 10^3/uL (0.0-0.8); Eosinophils % 1.4 %; Hematocrit 36.7 % (36-47); Lymphocytes # 1.7 10^3/uL (0.8-4.8); Lymphocytes % 20.4 %; Mean Corpuscular HGB Conc 31.3 g/dL (30-55); Mean Corpuscular Hemoglobin 29.7 pg (27-33); Mean Corpuscular Volume 94.8 fl (85-98); Mean Platelet Volume 11.7 fL (7.4-10.4); Monocytes # 0.6 10^3/uL (0.2-0.9); Monocytes % 7.5 %; Neutrophils % 68.9 %; Nucleated Red Blood Cells % 0 %; Platelet Count 193 10^3/cmm (157-399); Red Blood Count 3.87 10^6/uL (3.85-5.65); White Blood Count 8.28 10^3/uL (3.29-11.43)
[2023-09-03 11:41] LABS: Alanine Aminotransferase 11 U/L (0-33); Albumin Level 3.9 g/dL (3.5-5.2); Alkaline Phosphatase 155 U/L (35-105); Anion Gap 15.1 (5-19); Aspartate Amino Transferase 17 U/L (0-32); Blood Urea Nitrogen 21 mg/dL (8-23); Calcium 8.8 mg/dL (8.5-10.5); Carbon Dioxide 24 mmol/L (22-29); Chloride 108 mmol/L (98-107); Ferritin 322 ng/mL (15-150); Glucose 127 mg/dL (65-115); Iron 77 ug/dL (37-145); Osmolality Calculated 301 mOsm/kg (285-295); Percent Saturation 30.9 % (20-50); Potassium 4.1 mmol/L (3.5-5.1); Sodium 143 mmol/L (136-145); Total Bilirubin 0.3 mg/dL (0.15-1.2); Total Iron Binding Capacity 249 mcg/dl; Total Protein 6.9 g/dL (6.6-8.7); Unsaturated Iron Binding 172 ug/dL (112-347)
== END 2023-09-04 23:59 | disposition home or self-care (01) ==
PROVIDERS: PCP Internal Medicine; Visit Provider Internal Medicine Medical Oncology
DX: I26.99 Other pulmonary embolism without acute cor pulmonale (principal); D50.0 Iron deficiency anemia secondary to blood loss (chronic); R57.1 Hypovolemic shock; Z79.01 Long term (current) use of anticoagulants; Z79.899 Other long term (current) drug therapy
CPT/HCPCS: 36415; 80053; 82728; 83540; 83550; 85025; 99214

== ENCOUNTER → 2023-10-18 10:47 | Outpatient (BNVA) | payer MEDICARE, MEDICAID, SELFPAY | PROVIDERS: PCP Internal Medicine; Visit Provider Internal Medicine Pulmonary Disease | DX: J45.909 Unspecified asthma, uncomplicated (principal); I26.99 Other pulmonary embolism without acute cor pulmonale; Z95.5 Presence of coronary angioplasty implant and graft; R09.82 Postnasal drip; M19.90 Unspecified osteoarthritis, unspecified site | CPT/HCPCS: 99214 ==

== ENCOUNTER 2023-10-31 09:13 | Oncology outpatient (recurring) (ONCR) | payer MEDICARE, MEDICAID, SELFPAY ==
[2023-10-31 09:49] LABS: Basophils # 0.1 10^3/uL (0.0-0.1); Basophils % 1.3 %; Eosinophils # 0.1 10^3/uL (0.0-0.8); Eosinophils % 1.6 %; Hematocrit 32.4 % (36-47); Lymphocytes # 1.4 10^3/uL (0.8-4.8); Lymphocytes % 18.8 %; Mean Corpuscular HGB Conc 31.8 g/dL (30-55); Mean Corpuscular Hemoglobin 30.1 pg (27-33); Mean Corpuscular Volume 94.7 fl (85-98); Mean Platelet Volume 11.9 fL (7.4-10.4); Monocytes # 0.6 10^3/uL (0.2-0.9); Monocytes % 8.1 %; Neutrophils # 5.19 10^3/uL (1.8-7.7); Neutrophils % 69.7 %; Nucleated Red Blood Cells % 0 %; Platelet Count 191 10^3/cmm (157-399); Red Blood Count 3.42 10^6/uL (3.85-5.65); Red Cell Distribution Width 13.9 % (12.1-15.1); White Blood Count 7.45 10^3/uL (3.29-11.43)
[2023-10-31 10:06] LABS: Alanine Aminotransferase 13 U/L (0-33); Albumin Level 3.9 g/dL (3.5-5.2); Alkaline Phosphatase 131 U/L (35-105); Anion Gap 18.1 (5-19); Aspartate Amino Transferase 24 U/L (0-32); Blood Urea Nitrogen 14 mg/dL (8-23); Calcium 9.1 mg/dL (8.5-10.5); Carbon Dioxide 19 mmol/L (22-29); Chloride 106 mmol/L (98-107); Glucose 113 mg/dL (65-115); Osmolality Calculated 289 mOsm/kg (285-295); Potassium 4.1 mmol/L (3.5-5.1); Sodium 139 mmol/L (136-145); Total Bilirubin 0.4 mg/dL (0.15-1.2); Total Protein 6.9 g/dL (6.6-8.7)
[2023-10-31 11:00] LABS: Ferritin 374 ng/mL (15-150); Iron 55 ug/dL (37-145); Percent Saturation 21.4 % (20-50); Total Iron Binding Capacity 256 mcg/dl; Unsaturated Iron Binding 201 ug/dL (112-347)
== END 2023-11-04 23:59 | disposition home or self-care (01) ==
PROVIDERS: Nurse Practitioner Family; PCP Internal Medicine; Visit Provider Internal Medicine Medical Oncology
DX: D50.9 Iron deficiency anemia, unspecified; R57.1 Hypovolemic shock; Z79.01 Long term (current) use of anticoagulants; Z79.899 Other long term (current) drug therapy; R20.2 Paresthesia of skin; I26.99 Other pulmonary embolism without acute cor pulmonale
CPT/HCPCS: 36415; 80053; 82728; 83540; 83550; 83921; 85025; 99214

== ENCOUNTER 2023-11-21 10:50 | Outpatient (CLI) | payer MEDICARE, MEDICAID, SELFPAY ==
[2023-11-21 12:17] LABS: Basophils # 0.1 10^3/uL (0.0-0.1); Basophils % 1.2 %; Eosinophils # 0.2 10^3/uL (0.0-0.8); Eosinophils % 3.5 %; Hematocrit 33.5 % (36-47); Lymphocytes # 1.5 10^3/uL (0.8-4.8); Lymphocytes % 22.5 %; Mean Corpuscular HGB Conc 31.6 g/dL (30-55); Mean Corpuscular Hemoglobin 30.2 pg (27-33); Mean Corpuscular Volume 95.4 fl (85-98); Mean Platelet Volume 12.5 fL (7.4-10.4); Monocytes # 0.6 10^3/uL (0.2-0.9); Monocytes % 9.7 %; Neutrophils # 4.08 10^3/uL (1.8-7.7); Neutrophils % 62.8 %; Nucleated Red Blood Cells % 0 %; Platelet Count 189 10^3/cmm (157-399); Red Blood Count 3.51 10^6/uL (3.85-5.65); Red Cell Distribution Width 14.4 % (12.1-15.1)
[2023-11-21 12:46] LABS: Alanine Aminotransferase 14 U/L (0-33); Alkaline Phosphatase 141 U/L (35-105); Aspartate Amino Transferase 21 U/L (0-32); C Reactive Protein 6.7 mg/L (0.0-4.9); Total Bilirubin 0.5 mg/dL (0.15-1.2)
== END 2023-11-21 10:51 | disposition home or self-care (01) ==
LOC: LAB 10:51
PROVIDERS: PCP Internal Medicine; Visit Provider Internal Medicine Rheumatology
DX: Z79.899 Other long term (current) drug therapy (principal); M19.90 Unspecified osteoarthritis, unspecified site
CPT/HCPCS: 36415; 80076; 82565; 85025; 86140

== ENCOUNTER → 2023-12-12 14:22 | Outpatient (BNVA) | payer MEDICARE, MEDICAID, SELFPAY | PROVIDERS: PCP Internal Medicine; Visit Provider Internal Medicine | DX: I25.10 Atherosclerotic heart disease of native coronary artery without angina pectoris (principal); Z98.890 Other specified postprocedural states; Z87.19 Personal history of other diseases of the digestive system; I12.9 Hypertensive chronic kidney disease with stage 1 through stage 4 chronic kidney disease, or unspecified chronic kidney disease; N18.9 Chronic kidney disease, unspecified; I65.29 Occlusion and stenosis of unspecified carotid artery; Z95.5 Presence of coronary angioplasty implant and graft; I26.99 Other pulmonary embolism without acute cor pulmonale; Z79.01 Long term (current) use of anticoagulants | CPT/HCPCS: 99214 ==

== ENCOUNTER → 2024-01-09 13:52 | Outpatient (BNVA) | payer MEDICARE, MEDICAID, SELFPAY | PROVIDERS: PCP Internal Medicine; Visit Provider Internal Medicine Rheumatology | DX: M06.041 Rheumatoid arthritis without rheumatoid factor, right hand (principal); M06.042 Rheumatoid arthritis without rheumatoid factor, left hand; Z79.899 Other long term (current) drug therapy; Z71.85 Encounter for immunization safety counseling; I26.99 Other pulmonary embolism without acute cor pulmonale | CPT/HCPCS: 36415; 80076; 82565; 85025; 85651; 86140; 99214 ==

== ENCOUNTER 2024-01-31 14:04 | Outpatient (CLI) | payer MEDICAID, MEDICARE, SELFPAY ==
--- NOTE | 2024-01-31 14:10 | MM_ITS ---
WS: [id number] BILATERAL SCREENING DIGITAL TOMOSYNTHESIS MAMMOGRAM WITH CAD HISTORY: SCREENING COMPARISON: 02/18/2021, 07/19/2018 Bilateral CC and MLO views with tomosynthesis and synthetic mammography submitted. Computer aided det ection analyzed. Breast composition: The breasts are almost entirely fatty. No suspicious masses, microcalcifications or architectural distortion. MM/MM scr BI tomosynthesis [id number] IMPRESSION: BI-RADS: 1 - Negative. FOLLOW UP: 1 Year Follow-up
== END 2024-01-31 14:05 | disposition home or self-care (01) ==
LOC: RAD 14:05
PROVIDERS: PCP Internal Medicine; Visit Provider Internal Medicine
DX: Z12.31 Encounter for screening mammogram for malignant neoplasm of breast (principal); R92.313 Mammographic fatty tissue density, bilateral breasts
CPT/HCPCS: 77063; 77067

== ENCOUNTER 2024-02-04 11:44 | Oncology outpatient (recurring) (ONCR) | payer MEDICAID, MEDICARE, SELFPAY ==
[2024-02-04 12:24] LABS: Basophils # 0.1 10^3/uL (0.0-0.1); Basophils % 1.3 %; Eosinophils # 0.1 10^3/uL (0.0-0.8); Eosinophils % 1.8 %; Hematocrit 36.4 % (36-47); Lymphocytes # 2.1 10^3/uL (0.8-4.8); Lymphocytes % 29.7 %; Mean Corpuscular HGB Conc 31.6 g/dL (30-55); Mean Corpuscular Hemoglobin 30.5 pg (27-33); Mean Corpuscular Volume 96.6 fl (85-98); Mean Platelet Volume 12.4 fL (7.4-10.4); Monocytes # 0.6 10^3/uL (0.2-0.9); Monocytes % 8.3 %; Neutrophils # 4.17 10^3/uL (1.8-7.7); Neutrophils % 58.3 %; Nucleated Red Blood Cells % 0 %; Platelet Count 151 10^3/cmm (157-399); Red Blood Count 3.77 10^6/uL (3.85-5.65); Red Cell Distribution Width 14.6 % (12.1-15.1); White Blood Count 7.14 10^3/uL (3.29-11.43)
[2024-02-04 13:17] LABS: Alanine Aminotransferase 17 U/L (0-33); Alkaline Phosphatase 153 U/L (35-105); Anion Gap 16.7 (5-19); Aspartate Amino Transferase 19 U/L (0-32); Blood Urea Nitrogen 30 mg/dL (8-23); Calcium 9.4 mg/dL (8.5-10.5); Carbon Dioxide 22 mmol/L (22-29); Chloride 105 mmol/L (98-107); Ferritin 473 ng/mL (15-150); Globulin 2.9 g/dL (1.3-4.6); Glucose 95 mg/dL (65-115); Iron 91 ug/dL (37-145); Osmolality Calculated 294 mOsm/kg (285-295); Potassium 4.7 mmol/L (3.5-5.1); Sodium 139 mmol/L (136-145); Total Bilirubin 0.5 mg/dL (0.15-1.2); Total Iron Binding Capacity 284 mcg/dl; Total Protein 6.9 g/dL (6.6-8.7); Unsaturated Iron Binding 193 ug/dL (112-347)
== END 2024-02-04 23:59 | disposition home or self-care (01) ==
LOC: ONCMED 11:45
PROVIDERS: Nurse Practitioner Family; PCP Internal Medicine; Visit Provider Internal Medicine Medical Oncology
DX: Z79.01 Long term (current) use of anticoagulants; R79.89 Other specified abnormal findings of blood chemistry; Z09 Encounter for follow-up examination after completed treatment for conditions other than malignant neoplasm; Z86.711 Personal history of pulmonary embolism
CPT/HCPCS: 36415; 80053; 82728; 83540; 83550; 85025; 99214

== ENCOUNTER 2024-04-09 11:45 | Outpatient (CLI) | payer MEDICARE, MEDICAID, SELFPAY ==
[2024-04-09 13:02] LABS: Basophils # 0.1 10^3/uL (0.0-0.1); Basophils % 1.5 %; Eosinophils # 0.1 10^3/uL (0.0-0.8); Eosinophils % 1.5 %; Hematocrit 34.4 % (36-47); Lymphocytes # 1.7 10^3/uL (0.8-4.8); Lymphocytes % 25.5 %; Mean Corpuscular HGB Conc 31.4 g/dL (30-55); Mean Corpuscular Hemoglobin 31.6 pg (27-33); Mean Corpuscular Volume 100.6 fl (85-98); Monocytes # 0.6 10^3/uL (0.2-0.9); Monocytes % 9.3 %; Neutrophils # 3.96 10^3/uL (1.8-7.7); Neutrophils % 61.3 %; Nucleated Red Blood Cells % 0 %; Platelet Count 142 10^3/cmm (157-399); Red Blood Count 3.42 10^6/uL (3.85-5.65); Red Cell Distribution Width 14.5 % (12.1-15.1); White Blood Count 6.47 10^3/uL (3.29-11.43)
[2024-04-09 13:10] LABS: Erythrocyte Sedimentation Rate 15 mm/hr (0-15)
[2024-04-09 13:33] LABS: Alanine Aminotransferase 13 U/L (0-33); Albumin Level 4.1 g/dL (3.5-5.2); Alkaline Phosphatase 121 U/L (35-105); Aspartate Amino Transferase 18 U/L (0-32); Globulin 2.7 g/dL (1.3-4.6); Total Bilirubin 0.5 mg/dL (0.15-1.2); Total Protein 6.8 g/dL (6.6-8.7)
== END 2024-04-09 11:46 | disposition home or self-care (01) ==
LOC: LAB 11:47
PROVIDERS: PCP Internal Medicine; Visit Provider Internal Medicine Rheumatology
DX: M06.041 Rheumatoid arthritis without rheumatoid factor, right hand (principal); M06.042 Rheumatoid arthritis without rheumatoid factor, left hand; Z79.899 Other long term (current) drug therapy
CPT/HCPCS: 36415; 80076; 82565; 85025; 85651; 86140

== ENCOUNTER → 2024-05-21 13:01 | Outpatient (BNVA) | payer MEDICARE, MEDICAID, SELFPAY | PROVIDERS: PCP Internal Medicine; Visit Provider Internal Medicine Rheumatology | DX: Z79.899 Other long term (current) drug therapy (principal); M06.041 Rheumatoid arthritis without rheumatoid factor, right hand; M06.042 Rheumatoid arthritis without rheumatoid factor, left hand; Z71.85 Encounter for immunization safety counseling; I26.99 Other pulmonary embolism without acute cor pulmonale | CPT/HCPCS: 99214 ==

== ENCOUNTER → 2024-07-03 14:32 | Outpatient (BNVA) | payer MEDICARE, MEDICAID, SELFPAY | PROVIDERS: PCP Internal Medicine; Visit Provider Internal Medicine | DX: I12.9 Hypertensive chronic kidney disease with stage 1 through stage 4 chronic kidney disease, or unspecified chronic kidney disease (principal); N18.9 Chronic kidney disease, unspecified; R00.2 Palpitations; Z98.890 Other specified postprocedural states; Z87.19 Personal history of other diseases of the digestive system; I65.29 Occlusion and stenosis of unspecified carotid artery; Z95.5 Presence of coronary angioplasty implant and graft; I25.10 Atherosclerotic heart disease of native coronary artery without angina pectoris; Z86.711 Personal history of pulmonary embolism; Z79.01 Long term (current) use of anticoagulants | CPT/HCPCS: 99214 ==

== ENCOUNTER 2024-07-25 10:13 | Outpatient (CLI) | payer MEDICARE, MEDICAID, SELFPAY ==
--- NOTE | 2024-07-25 10:21 | USCV_ITS ---
Denise Sanches Age: 74 Gender: F : 1950 Exam Date: 07/25/2024 10:31 Ordering Phys: Carlito Alexis MD Technologist: Junior Seymour Exam Location: [facility] [place]_ Indication: pulsatile tinnitus Risk Factors: Previous Vascular Surgery: Right Brachial BP: / Left Brachial BP: / Right Left Velocity (cm/s) Spectral Plaque Velocity (cm/s) Spectral Plaque Syst/Diast Broadening Syst/Diast Broadening 60.90/ 12.90 Prox CCA 70.70 / 17.90 83.00/ 20.70 Mid CCA 80.80 / 26.90 59.50/ 19.30 Distal CCA 78.90 / 21.00 44.70/ 14.00 Prox ICA 98.10 / 17.00 146.40/55.40 Mid ICA 131.70/ 37.40 119.40/34.30 Distal ICA 93.60 / 33.70 79.50 ECA 84.40 2.50 ICA/CCA 1.70 Antegrade Vertebral Antegrade 47.60/ 16.70 cm/s 47.60/ 14.60 cm/s Tri Subclavian Tri 123.1 127.6 0 0 CONCLUSIONS Elevated velocities in the MID icas bilaterally may be due to tortuosity. Recommend CTA Normal antegrade Doppler flow noted in the right vertebral artery. Normal antegrade Doppler flow noted in the left vertebral artery. Raj Dyson MD (Electronically Signed) Final Date: 25 July 2024 11:31 S
== END 2024-07-25 10:14 | disposition home or self-care (01) ==
LOC: RAD 10:16
PROVIDERS: PCP Family Medicine; Visit Provider Specialist
DX: H93.A1 Pulsatile tinnitus, right ear (principal); R93.89 Abnormal findings on diagnostic imaging of other specified body structures
CPT/HCPCS: 93880

== ENCOUNTER 2024-07-29 12:12 | Outpatient (CLI) | payer MEDICARE, MEDICAID, SELFPAY ==
--- NOTE | 2024-07-29 12:18 | MR_ITS ---
WS: [id number] MR VENOGRAPHY HEAD 3-D noncontrast imaging performed through the cerebral veins. All imaging is reviewed. HISTORY: CONDUCTIVE HEARING LOSS,BILATERAL COMPARISON: None available. Good demonstration of the dural venous sinuses and cerebral veins. There are no filling defects to suggest acute or chronic thrombus. Flow artifact in the jugular veins. Superior sagittal sinus, straight sinus and transverse sinuses are all patent with no significant thrombus. MR/[place] [id number] IMPRESSION: Normal MR venogram cerebral veins.
--- NOTE | 2024-07-29 12:18 | MR_ITS ---
WS: [id number] MRA ANGIOGRAPHY [place] HISTORY: CONDUCTIVE HEARING LOSS,BILATERAL/PULSATILE TINNITUS, R EAR COMPARISON: None available. TECHNIQUE: 3-D MR angiography is performed of the [place]. All images are reviewed including source images. Distal vertebral and basilar arteries are intact with no significant stenosis or plaque. Posterior cerebral arteries are normal course and caliber. Posterior communicating arteries are both patent. Petrous portion of the LEFT ICA is slightly smaller caliber than the RIGHT but there is no occlusion. Stenosis less than 50%. Distal intracranial carotid arteries are normal caliber and patent. Supraclinoid carotid arteries are normal. Anterior and middle cerebral arteries are normal. No aneurysms. No occlusions. MR/MR angio head wo con [id number] IMPRESSION: 1. No high-grade stenosis or aneurysm within the [place]. 2. Very minimal narrowing of the LEFT petrous carotid artery but no stenosis. 3. No aberrant course of the carotid arteries.
--- NOTE | 2024-07-29 12:18 | MR_ITS ---
WS: [id number] MRI BRAIN WITH HIGH-RESOLUTION IMAGING THROUGH THE INTERNAL AUDITORY CANALS WITHOUT AND WITH CONTRAST HISTORY: CONDUCTIVE HEARING LOSS,BILATERAL COMPARISON: None available. TECHNIQUE: Multiplanar, multisequence imaging is performed through the brain. Additional 3 mm imaging performed in multiple planes through the internal auditory canal. Postcontrast imaging with 18 ml's of MultiHance. No acute intracranial hemorrhage, midline shift, edema or mass effect. Normal diffusion imaging. No acute infarct. Scattered subcortical T2 and FLAIR signal hyperintensities slightly greater distribution on the RIGHT. No hemorrhage. No mass effect upon the brainstem. No inferior displacement of the cerebellar tonsils. Ventricles and extra-axial spaces are normal. No inferior displacement of cerebellar tonsils. Clivus and pituitary gland are normal. Internal and external auditory canals: Unremarkable. Cranial nerves VII and VIII complexes: Unremarkable. No enhancement or mass. Normal trigeminal root entry root zones. Cerebellopontine angles: Normal. Paranasal sinuses: Normal. Mastoid air cells: Extensive bilateral mastoid air cell effusions slightly greater on the RIGHT than the LEFT. Calvarium and scalp: Normal. Visualized [place] and dural venous sinuses demonstrate no abnormality. MR/MR iac's wo/w con* [id number] IMPRESSION: 1. Unremarkable internal auditory canals. No enhancing masses are identified. No aberrancy of the carotid artery appreciated. 2. No acute infarct. 3. Mild small vessel ischemic type changes. 4. No enhancing masses. No hemorrhage. 5. Extensive bilateral mastoid air cell effusions.
[2024-07-29] MEDS: gadobenate dimeglumine 20 mL vial 17 ML IV (13:51)
== END 2024-07-29 12:13 | disposition home or self-care (01) ==
PROVIDERS: PCP Family Medicine; Visit Provider Specialist
DX: H90.0 Conductive hearing loss, bilateral (principal); H93.A9 Pulsatile tinnitus, unspecified ear; R93.0 Abnormal findings on diagnostic imaging of skull and head, not elsewhere classified; H74.8X3 Other specified disorders of middle ear and mastoid, bilateral
CPT/HCPCS: 70544; 70553

== ENCOUNTER → 2024-08-20 14:10 | Outpatient (BNVA) | payer MEDICARE, MEDICAID, SELFPAY | PROVIDERS: PCP Internal Medicine; Visit Provider Internal Medicine Rheumatology | DX: Z79.899 Other long term (current) drug therapy (principal); Z71.85 Encounter for immunization safety counseling; I26.99 Other pulmonary embolism without acute cor pulmonale; M06.041 Rheumatoid arthritis without rheumatoid factor, right hand; M06.042 Rheumatoid arthritis without rheumatoid factor, left hand | CPT/HCPCS: 36415; 80076; 82306; 82565; 85025; 85651; 86140; 99214 ==

== ENCOUNTER → 2024-09-25 10:37 | Outpatient (BNVA) | payer MEDICARE, MEDICAID, SELFPAY | PROVIDERS: PCP Internal Medicine; Visit Provider Nurse Practitioner Family | DX: R07.9 Chest pain, unspecified (principal); I12.9 Hypertensive chronic kidney disease with stage 1 through stage 4 chronic kidney disease, or unspecified chronic kidney disease; N18.9 Chronic kidney disease, unspecified; I65.29 Occlusion and stenosis of unspecified carotid artery; I25.118 Atherosclerotic heart disease of native coronary artery with other forms of angina pectoris; Z79.01 Long term (current) use of anticoagulants; Z79.82 Long term (current) use of aspirin; Z86.718 Personal history of other venous thrombosis and embolism; Z95.5 Presence of coronary angioplasty implant and graft | CPT/HCPCS: 99214 ==

== ENCOUNTER 2024-10-13 10:13 | Outpatient (CLI) | payer MEDICARE, MEDICAID, SELFPAY ==
[2024-10-13 10:21] VITALS: BMI 33.6
--- NOTE | 2024-10-13 10:21 | NMCV_ITS ---
NM arun perf SPECT r/s* [id number] Denise Sanches Age: 74 Gender: F : 1950 Exam Date: 10/13/2024 11:13 Ordering Phys: Marry Owusu NP Technologist: AKHIL Ruiz Exam Location: [facility] Indications: cp STRESS TEST [facility] IMAGE PROTOCOL Rest/Stress 1 Lexiscan Day Radiopharmaceutical Dose (mCi) Administration Site Administered by Rest: Tc-99m 10.3 IV Juanita Haro, NUCLEAR PLANT OPERATOR Sestamibi Stress:Tc-99m 32.5 IV Juanita Guerragle, NUCLEAR PLANT OPERATOR Sestamibi Rest: 13-Oct-2024 60 Discovery 630 Stress: 13-Oct-2024 30 Discovery 630 0.4mg Lexiscan. Images obtained in supine and prone position. SPECT RESULTS Technical Quality: Good Raw Data Analysis: Normal Image Corrections: No attenuation or motion correction applied Summed Stress Score: 2 Summed Rest Score: 6 Summed Difference Score: 0 PERFUSION FINDINGS Small area of moderate decrease tracer uptake involving the mid inferolateral region with no significant reversibility FUNCTIONAL RESULTS (calculated via Gated SPECT) Stress Image LV EF (%): 85 Stress EDV (mL):40 TID: 0.61 Stress ESV (mL):6 FUNCTIONAL FINDINGS: Segmental wall motion analysis revealing no gross wall motion abnormalities IMPRESSIONS 1. Myocardial perfusion imaging revealing a small area of persistent decreased tracer uptake involving the inferolateral region suggestive of myocardial scarring versus attenuation artifact 2. Normal LV ejection fraction of 85%. 3. LV wall motion analysis revealing no gross wall motion abnormalities. 4. Normal LV volume Low probability for coronary ischemia, based on the above findings Dr Stefani Currie MD FACC (Electronically Signed) Final Date: 13 October 2024 16:01 S
--- NOTE | 2024-10-13 10:21 | ECG_ITS ---
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 Interpretive Statements Lung unchanged pre/post procedure; Intraprocedure shortess of breath; Symptoms resoled by discharge PROCEDURE: At the baseline, the EKG revealed normal sinus rhythm with a probable progression. Left axis deviation. Some nonspecific ST-T changes.. The baseline heart was 64 bpm with a blood pressue of 161/66 mm of Hg Lexiscan was infused over a period of 20 seconds. A total of 0.4 milligrams of Lexiscan was infused. The stress phase was continued for a total of 5 minutes. Heart rate at the end of the stress phase was 93 bpm with a blood pressure 172/69 mm of Hg. The EKG at the peak infusion revealed no significant changes. Sestamibi was injected 20 seconds after the Lexiscan infusion. Patient was complaining of nausea and shortness of breath. Responded appropriately to Zofran and aminophylline Heart rate at the end of the recovery phase was 71 bpm with a blood pressure of 146/65 mm of Hg. CONCLUSION: 1. No significant EKG changes with the LexiScan infusion 2. Lexiscan induced shortness of breath/nausea 3. Normal blood pressure and heart rate response 4. Sestamibi/sestamibi perfusion scan pending; see separate report. Electronically Signed On 10-15-2024 22:56:41 CDT by Stefani Currie M.D. [email or web address]
[2024-10-13] MEDS: regadenoson 0.4 Mg/5 ml Syringe IVP (11:46)
[2024-10-13] MEDS: ondansetron 2 mg/ML SDV 2 mL 4 MG IVP (11:53)
[2024-10-13] MEDS: aminophylline 25 mg/mL SDV 20 mL IVP (11:56)
[2024-10-13 12:02] VITALS: BP 146/65; PULSE 72; RESP 18
== END 2024-10-13 10:14 | disposition home or self-care (01) ==
LOC: CDL 10:15
PROVIDERS: PCP Family Medicine; Visit Provider Nurse Practitioner Family
DX: R07.9 Chest pain, unspecified (principal); R93.1 Abnormal findings on diagnostic imaging of heart and coronary circulation
CPT/HCPCS: 36415; 78452; 93017; 96374; A9500; J0280; J2405; J2785

== ENCOUNTER → 2024-10-15 08:35 | Outpatient (BNVA) | payer MEDICARE, MEDICAID, SELFPAY | PROVIDERS: PCP Family Medicine; Visit Provider Nurse Practitioner Family | DX: L57.8 Other skin changes due to chronic exposure to nonionizing radiation (principal); L82.1 Other seborrheic keratosis; L91.8 Other hypertrophic disorders of the skin; L72.0 Epidermal cyst; L30.0 Nummular dermatitis; L82.0 Inflamed seborrheic keratosis; R20.8 Other disturbances of skin sensation; Z78.9 Other specified health status; L53.8 Other specified erythematous conditions; L57.0 Actinic keratosis | CPT/HCPCS: 17000; 17110; 99203 ==

== ENCOUNTER 2024-11-04 15:19 | Outpatient (CLI) | payer MEDICARE, MEDICAID, SELFPAY ==
--- NOTE | 2024-11-04 15:27 | CT_ITS ---
WS: [id number] CT NECK TECHNIQUE: Contrast-enhanced CT of the neck with coronal and sagittal reformatted images. CLINICAL INFORMATION: LOCALIZED SWELLING, MASS AND LUMP, NECK COMPARISON: None. DLP: 202.[address] scans at [facility] use at least one of these dose optimization techniques: automated exposure control; mA and/or kV adjustment per patient size (includes targeted exams where dose is matched to clinical indication); or iterative reconstruction. FINDINGS: Paranasal sinuses are well aerated. Mastoid air cells are well aerated. Mucosal thickening RIGHT mastoid tip. Normal submandibular glands. Parotid glands are normal. Normal parapharyngeal fat. Normal posterior nasopharynx. Normal thyroid. No evidence of supraglottic or glottic mass. Normal subglottic airway. No cervical lymphadenopathy. Advanced spondylitic changes cervical spine with mild central canal stenosis. Fibrosis in the lung apices. Mild aortic calcification. Carotid bulb calcification. CT/CT neck w con* [id number] IMPRESSION: 1. No acute neck findings. 2. No cervical lymphadenopathy. 3. Normal salivary glands.
[2024-11-04 16:21] LABS: Blood Urea Nitrogen 18 mg/dL (8-23)
[2024-11-04] MEDS: iohexol 350 mg/mL 500 mL Btl (per mL) IV (16:37)
== END 2024-11-04 15:20 | disposition home or self-care (01) ==
LOC: RAD 15:20
PROVIDERS: PCP Family Medicine; Visit Provider Specialist
DX: R22.1 Localized swelling, mass and lump, neck (principal); I70.0 Atherosclerosis of aorta; I65.29 Occlusion and stenosis of unspecified carotid artery; M48.02 Spinal stenosis, cervical region
CPT/HCPCS: 70491; 82565; 84520

== ENCOUNTER → 2024-12-18 14:35 | Outpatient (BNVA) | payer MEDICARE, MEDICAID, SELFPAY | PROVIDERS: PCP Family Medicine; Visit Provider Internal Medicine Rheumatology | DX: Z79.899 Other long term (current) drug therapy (principal); Z71.85 Encounter for immunization safety counseling; I26.99 Other pulmonary embolism without acute cor pulmonale; M06.041 Rheumatoid arthritis without rheumatoid factor, right hand; M06.042 Rheumatoid arthritis without rheumatoid factor, left hand; M54.2 Cervicalgia; M54.9 Dorsalgia, unspecified | CPT/HCPCS: 36415; 72040; 72100; 80076; 82306; 82565; 85025; 85651; 86140; 86480; 99214 ==

== ENCOUNTER → 2024-12-25 12:39 | Outpatient (BNVA) | payer MEDICARE, MEDICAID, SELFPAY | PROVIDERS: PCP Family Medicine; Visit Provider Internal Medicine | DX: I25.10 Atherosclerotic heart disease of native coronary artery without angina pectoris (principal); Z98.890 Other specified postprocedural states; Z87.19 Personal history of other diseases of the digestive system; I12.9 Hypertensive chronic kidney disease with stage 1 through stage 4 chronic kidney disease, or unspecified chronic kidney disease; N18.9 Chronic kidney disease, unspecified; I65.29 Occlusion and stenosis of unspecified carotid artery; Z95.5 Presence of coronary angioplasty implant and graft | CPT/HCPCS: 99213 ==

== ENCOUNTER → 2025-01-13 15:22 | Outpatient (BNVA) | payer MEDICARE, MEDICAID, SELFPAY | PROVIDERS: PCP Family Medicine; Visit Provider Orthopaedic Surgery | DX: M54.2 Cervicalgia (principal); M54.9 Dorsalgia, unspecified | CPT/HCPCS: 72050; 72072; 72110; 99203 ==

== ENCOUNTER 2025-02-03 11:13 | Outpatient (CLI) | payer MEDICARE, MEDICAID, SELFPAY ==
--- NOTE | 2025-02-03 11:18 | MM_ITS ---
WS: [email or web address] BILATERAL 3D TOMOSYNTHESIS DIGITAL SCREENING MAMMOGRAPHY WITH CAD CLINICAL INFORMATION: SCREENING HISTORY: Screening mammogram. No current complaints. COMPARISON: 2023 TECHNIQUE: Bilateral CC and MLO views. FINDINGS: Scattered fibroglandular densities bilaterally. No suspicious focal mass, asymmetry, calcifications, or architectural distortion. No evidence of malignancy. Vascular calcification. A few incidental punctate calcifications. MM/MM scr tomosynthesis [id number] IMPRESSION: DENSITY: There are scattered areas of fibroglandular density. BI-RADS: 2 - Benign. FOLLOW UP: 1 Year Follow-up Recommend return to annual screening mammography.
== END 2025-02-03 11:14 | disposition home or self-care (01) ==
LOC: RAD 11:14
PROVIDERS: PCP Family Medicine; Visit Provider Family Medicine
DX: Z12.31 Encounter for screening mammogram for malignant neoplasm of breast (principal); R92.323 Mammographic fibroglandular density, bilateral breasts; R92.1 Mammographic calcification found on diagnostic imaging of breast
CPT/HCPCS: 77063; 77067

== ENCOUNTER 2025-03-09 14:31 | Outpatient (CLI) | payer MEDICARE, MEDICAID, SELFPAY ==
--- NOTE | 2025-03-09 14:39 | XR_ITS ---
WS: [id number] DEXA (DUAL ENERGY X-RAY ABSORPTIOMETRY) Bone mineral density was performed using a [employer] machine. HISTORY: POSTMENOPAUSAL BONE LOSS COMPARISON: 12/08/2015 Lumbar spine BMD (L2-L4): 1.048 T score: -1.3 Z score: 0.0 Total hip BMD: Left: 0.720 g/cm2. T score: -2.3 Z score: -0.9 Right: 0.739 g/cm2. T score: -2.1 Z score: -0.8 10 year probability of a major osteoporotic fracture is 44.4%. Compared to the prior study from 12/08/2015. Lumbar spine bone mineral density has increased by 14.0%. Bilateral hips bone mineral density has decreased by 7.4%. XR/XR DEXA axial skeleton* [id number] IMPRESSION: OSTEOPENIA based upon the WHO classification for females. Significant decrease in bone mineral density within the hips since the prior st . Bone mineral density within the lumbar spine has increased but this appears to be falsely elevated increased due to bony sclerosis.
== END 2025-03-09 14:32 | disposition home or self-care (01) ==
LOC: RAD 14:33
PROVIDERS: PCP Family Medicine; Visit Provider Family Medicine
DX: Z13.820 Encounter for screening for osteoporosis (principal); Z78.0 Asymptomatic menopausal state; M85.89 Other specified disorders of bone density and structure, multiple sites
CPT/HCPCS: 77080

== ENCOUNTER 2025-03-11 12:48 | Outpatient (CLI) | payer MEDICARE, MEDICAID, SELFPAY ==
--- NOTE | 2025-03-11 12:54 | CTR_ITS ---
PROCEDURE INFORMATION: Exam: CT Pelvis Without Contrast, Skeleton Exam date and time: 03/11/2025 1:33 PM Age: 74 years old Clinical indication: Left hip; Prior surgery; Surgery date: 6+ months; Surgery type: Tubal , hernia x 3; Left side groin to hip pain x several months getting worse in last 3 weeks, no known injury; Additional info: Left hip pain TECHNIQUE: Imaging protocol: Computed tomography of the pelvis without contrast. Exam focused on the skeleton. Radiation optimization: All CT scans at this facility use at least one of these dose optimization techniques: automated exposure control; mA and/or kV adjustment per patient size (includes targeted exams where dose is matched to clinical indication); or iterative reconstruction. COMPARISON: CR XR hip LT 2-3V wo/w pel* [id number] 02/27/2025 11:45 AM RADIATION DOSE METRICS: Total DLP (mGy-cm): 294.33 FINDINGS: Intraperitoneal space: No free intraperitoneal air. No significant fluid collection. Vasculature: There is no aortic aneurysm. There is atherosclerotic disease. Reproductive: Uterus is unremarkable for patient's age. No suspicious adnexal lesion seen. Urinary bladder: Bladder is distended with no focal wall thickening. Bones/joints: Minimally displaced fracture of the left inferior pubic ramus with evidence of healing. Nondisplaced fracture of the left superior pubic ramus. Sclerosis of the left iliac bone adjacent to the sacroiliac joint. Soft tissues: Unremarkable. CT/CT pelvis wo con [id number] IMPRESSION: 1. Minimally displaced fracture of the left inferior pubic ramus with evidence of healing. 2. Nondisplaced fracture of the left superior pubic ramus. 3. Possible left sacroiliitis.
== END 2025-03-11 12:49 | disposition home or self-care (01) ==
LOC: RAD 12:49
PROVIDERS: PCP Family Medicine; Visit Provider Family Medicine
DX: S32.592A Other specified fracture of left pubis, initial encounter for closed fracture (principal); M25.552 Pain in left hip; N32.89 Other specified disorders of bladder; M85.852 Other specified disorders of bone density and structure, left thigh; X58.XXXA Exposure to other specified factors, initial encounter
CPT/HCPCS: 72192

== ENCOUNTER → 2025-04-14 10:28 | Outpatient (BNVA) | payer MEDICARE, MEDICAID, SELFPAY | PROVIDERS: PCP Family Medicine; Visit Provider Orthopaedic Surgery | DX: S32.592A Other specified fracture of left pubis, initial encounter for closed fracture (principal); M53.3 Sacrococcygeal disorders, not elsewhere classified; S32.512A Fracture of superior rim of left pubis, initial encounter for closed fracture; X58.XXXA Exposure to other specified factors, initial encounter | CPT/HCPCS: 99213 ==

== ENCOUNTER → 2025-05-04 13:17 | Outpatient (BNVA) | payer MEDICARE, MEDICAID, SELFPAY | PROVIDERS: PCP Family Medicine; Visit Provider Internal Medicine Rheumatology | DX: M06.041 Rheumatoid arthritis without rheumatoid factor, right hand (principal); M06.042 Rheumatoid arthritis without rheumatoid factor, left hand; Z79.899 Other long term (current) drug therapy; Z71.85 Encounter for immunization safety counseling; I26.99 Other pulmonary embolism without acute cor pulmonale; Z79.01 Long term (current) use of anticoagulants | CPT/HCPCS: 36415; 80076; 82565; 85025; 85651; 86140; 99214 ==